=== PATIENT | female | born 1965 | race Caucasian/White ===

== ENCOUNTER 2021-03-13 08:10 | Emergency (ER) | payer OTHER ==
[~2021-03-13] VITALS: Ht 162.6 cm; Wt 63.5 kg
[2021-03-13 09:01] LABS: BASOPHILS ABSOLUTE AUTO 0.03 K/mm3 (0.00-0.23); BASOPHILS PERCENT AUTO 0 % (0-2); EOSINOPHILS ABSOLUTE AUTO 0.09 K/mm3 (0.00-0.68); EOSINOPHILS PERCENT AUTO 0 % (0-6); Hematocrit 26.4 % (33.0-51.0); Hemoglobin 8.4 g/dL (11.5-16.0); IMMATURE GRAN ABSOLUTE AUTO 0.45 K/mm3 (0.00-0.10); IMMATURE GRAN PERCENT AUTO 2 % (0-1); LYMPHOCYTES ABSOLUTE AUTO 1.16 K/mm3 (0.84-5.20); LYMPHOCYTES PERCENT AUTO 5 % (21-46); MONOCYTES ABSOLUTE AUTO 0.74 K/mm3 (0.16-1.47); MONOCYTES PERCENT AUTO 3 % (4-13); Mean Corpuscular HGB 23.1 pg (26.0-34.0); Mean Corpuscular HGB Conc 31.8 g/dL (31.5-36.5); Mean Corpuscular Volume 73 fL (80-100); NEUTROPHILS ABSOLUTE AUTO 20.32 K/mm3 (1.96-9.15); NEUTROPHILS PERCENT AUTO 89 % (41-73); NRBC ABSOLUTE 0.12 K/mm3 (0.00-0.02); NRBC Auto 0.5 /100 WBC (0.0-0.2); Platelet Count 54 K/mm3 (150-400); RDW Coefficient Variation 22.6 % (11.7-14.2); RDW Standard Deviation 58.2 fL (35.1-46.3); Red Blood Cell Count 3.63 M/mm3 (3.80-5.20); White Blood Cell Count 22.79 K/mm3 (4.00-11.30)
[2021-03-13 09:23] LABS: Alanine Aminotransfer (ALT/SGP 39 U/L (12-78); Albumin, Blood 1.9 g/dL (3.4-5.0); Albumin/Globulin Ratio 0.4 (0.8-1.8); Alk Phos 129 U/L (50-136); Anion Gap 13 mmol/L (6-16); Aspartate Aminotrans (AST/SGOT 113 U/L (12-37); Bilirubin, Total 3.6 mg/dL (0.1-1.0); Blood Urea Nitrogen 33 mg/dL (8-24); Bun/Creatinine Ratio 42.1 (12.0-20.0); CO2, Blood 19 mmol/L (21-32); Calcium, Blood 7.5 mg/dL (8.5-10.1); Chloride, Blood 97 mmol/L (98-108); Creatinine, Blood 0.78 mg/dL (0.40-1.00); Free Thyroxine 0.83 ng/dL (0.70-1.60); Globulin, Blood 5.3 g/dL (2.2-4.0); Glomerular Filtration Rate >60 (60-); Glucose, Blood 101 mg/dL (70-99); Potassium, Blood 2.7 mmol/L (3.5-5.5); Sodium, Blood 129 mmol/L (136-145); Thyroid Stimulating Hormone 0.689 uIU/mL (0.360-4.800); Total Protein, Blood 7.2 g/dL (6.4-8.2)
[2021-03-13 09:25] LABS: PCO2 Arterial 29.2 mmHg (35-45); PO2 Arterial 39.2 mmHg (80-100)
[2021-03-13 10:05] LABS: International Normalized Ratio 2.6; Prothrombin Time Results 26.6 Sec (9.7-11.5)
[2021-03-13 13:28] LABS: SARS-Cov-2 (COVID-19) PCR, MMC POSITIVE (NEGATIVE)
[2021-03-13 14:34] LABS: PO2 Arterial 93.6 mmHg (80-100); pH Blood Arterial 7.44 (7.35-7.45)
[2021-03-13 15:40] LABS: Source, Urine Clean Catch
[2021-03-13 15:48] LABS: Appearance, Urine Clear (Clear); Bilirubin, Urine Neg (Neg); Blood, Urine Neg (Neg); Color, Urine Yellow (P-Yellow); Glucose Qualitative, Urine Neg (Neg); Ketones, Urine Neg (Neg); Leukocyte Esterase, Urine Neg (Neg); Nitrite, Urine Neg (Neg); Protein, Urine Neg (Neg); Urobilinogen, Urine 2+ (Normal); pH, Urine 6.5 (5.0-8.0)
[2021-03-13 16:35] LABS: Calcium, Ionized (POC) 0.97 mmol/L (1.10-1.46); Chloride (POC) 100 mmol/L (98-108); Creatinine (POC) 0.8 mg/dL (0.6-1.0); Glucose (ISTAT POC) 107 mg/dL (70-99); Hemoglobin (POC) 8.2 g/dL (12.0-16.0); Potassium (POC) 2.8 mmol/L (3.5-5.5); Sodium (POC) 135 mmol/L (135-148); Total CO2 (POC) 24 mmol/L (21-32)
[2021-03-13 17:37] LABS: Hematocrit 20.8 % (33.0-51.0); Hemoglobin 6.7 g/dL (11.5-16.0)
== END 2021-03-13 19:45 | disposition short-term general hospital (02) ==
LOC: ER 08:10
PROVIDERS: Emergency Medicine
DX: U07.1 COVID-19 (principal); J93.83 Other pneumothorax; R09.02 Hypoxemia; K76.9 Liver disease, unspecified; E87.1 Hypo-osmolality and hyponatremia; E87.6 Hypokalemia; D69.6 Thrombocytopenia, unspecified; I10 Essential (primary) hypertension
CPT/HCPCS: 31500; 32551; 36415; 36430; 36600; 36680; 51702; 71045; 71260; 74177; 80047; 80053; 81003; 82140; 82272; 82803; 83605; 83735; 83880; 84439; 84443; 85014; 85018; 85025; 85610; 85730; 86850; 86900; 86901; 86923; 87040; 93005; 93010; 94002; 96365-59; 96366-59; 96367-59; 96368; 96375-59; 96376-59; 99285-25; C9113; G0480; J0330; J0456; J0696; J1100; J2060; J2354; J2704; J3480; J7030; J7050; P9016; Q9967; U0004

== ENCOUNTER → 2021-04-14 | Outpatient (CLI) | payer OTHER ==
[2021-04-15 14:45] LABS: Alanine Aminotransfer (ALT/SGP 99 U/L (12-78); Albumin/Globulin Ratio 0.4 (0.8-1.8); Alk Phos 258 U/L (50-136); Anion Gap 7 mmol/L (6-16); Aspartate Aminotrans (AST/SGOT 105 U/L (12-37); Bilirubin, Total 1.7 mg/dL (0.1-1.0); Blood Urea Nitrogen 7 mg/dL (8-24); CO2, Blood 26 mmol/L (21-32); Calcium, Blood 8.2 mg/dL (8.5-10.1); Chloride, Blood 93 mmol/L (98-108); Creatinine, Blood 0.64 mg/dL (0.40-1.00); Globulin, Blood 4.7 g/dL (2.2-4.0); Glomerular Filtration Rate >60 (60-); Glucose, Blood 75 mg/dL (70-99); Magnesium, Blood 1.5 mg/dL (1.6-2.4); Potassium, Blood 3.5 mmol/L (3.5-5.5); Sodium, Blood 126 mmol/L (136-145); Total Protein, Blood 6.7 g/dL (6.4-8.2)
== END | disposition home or self-care (01) ==
LOC: LAB SHORT 15:35
PROVIDERS: Nurse Practitioner Family
DX: J96.01 Acute respiratory failure with hypoxia (principal); D50.9 Iron deficiency anemia, unspecified; K74.60 Unspecified cirrhosis of liver
CPT/HCPCS: 80053; 83735

== ENCOUNTER 2021-04-29 10:02 | Emergency (ER) | payer OTHER ==
[~2021-04-29] VITALS: Ht 162.6 cm; Wt 65.8 kg
[2021-04-29 12:13] LABS: BASOPHILS ABSOLUTE AUTO 0.06 K/mm3 (0.00-0.23); BASOPHILS PERCENT AUTO 1 % (0-2); EOSINOPHILS ABSOLUTE AUTO 0.19 K/mm3 (0.00-0.68); EOSINOPHILS PERCENT AUTO 3 % (0-6); Hematocrit 31.1 % (33.0-51.0); Hemoglobin 10.4 g/dL (11.5-16.0); IMMATURE GRAN ABSOLUTE AUTO 0.04 K/mm3 (0.00-0.10); IMMATURE GRAN PERCENT AUTO 1 % (0-1); LYMPHOCYTES ABSOLUTE AUTO 1.14 K/mm3 (0.84-5.20); LYMPHOCYTES PERCENT AUTO 17 % (21-46); MONOCYTES ABSOLUTE AUTO 0.55 K/mm3 (0.16-1.47); MONOCYTES PERCENT AUTO 8 % (4-13); Mean Corpuscular HGB 31.1 pg (26.0-34.0); Mean Corpuscular HGB Conc 33.4 g/dL (31.5-36.5); Mean Corpuscular Volume 93 fL (80-100); Mean Platelet Volume 9.4 fL (9.1-12.4); NEUTROPHILS ABSOLUTE AUTO 4.79 K/mm3 (1.96-9.15); NEUTROPHILS PERCENT AUTO 71 % (41-73); Platelet Count 104 K/mm3 (150-400); RDW Coefficient Variation 21.3 % (11.7-14.2); RDW Standard Deviation 73.8 fL (35.1-46.3); Red Blood Cell Count 3.34 M/mm3 (3.80-5.20); White Blood Cell Count 6.77 K/mm3 (4.00-11.30)
[2021-04-29 12:23] LABS: International Normalized Ratio 1.42
[2021-04-29 12:32] LABS: Alanine Aminotransfer (ALT/SGP 62 U/L (12-78); Albumin, Blood 2.2 g/dL (3.4-5.0); Albumin/Globulin Ratio 0.5 (0.8-1.8); Alk Phos 192 U/L (50-136); Anion Gap 9 mmol/L (6-16); Aspartate Aminotrans (AST/SGOT 78 U/L (12-37); Bilirubin, Total 1.4 mg/dL (0.1-1.0); Blood Urea Nitrogen 7 mg/dL (8-24); Bun/Creatinine Ratio 11.5 (12.0-20.0); CO2, Blood 23 mmol/L (21-32); Calcium, Blood 8.3 mg/dL (8.5-10.1); Chloride, Blood 96 mmol/L (98-108); Creatinine, Blood 0.61 mg/dL (0.40-1.00); Globulin, Blood 4.4 g/dL (2.2-4.0); Glomerular Filtration Rate >60 (60-); Glucose, Blood 86 mg/dL (70-99); Potassium, Blood 3.2 mmol/L (3.5-5.5); Sodium, Blood 128 mmol/L (136-145); Total Protein, Blood 6.6 g/dL (6.4-8.2)
[2021-04-29] MEDS ORDERED: FURO80 PO (13:13)
[2021-04-29] MEDS ORDERED: ATOR40TA PO (15:33)
[2021-04-29] MEDS ORDERED: LOSA50 PO (15:34)
[2021-04-29] MEDS ORDERED: DECARA1250 MC1 PO (15:34)
[2021-04-29] MEDS ORDERED: ZOLOFT25 MG PO (15:34)
[2021-04-29] MEDS ORDERED: FOLI1 PO (15:36)
[2021-04-29] MEDS ORDERED: ACAMPROSATE CA333 MG PO (15:36)
[2021-04-29] MEDS ORDERED: SPIRONOLACTONE50 MG PO (15:38)
[2021-04-29] MEDS ORDERED: CONSTULOSE10 GM/155 PO (15:38)
[2021-04-29] MEDS ORDERED: SULFAMETHOXAZO1 EAC1 PO (15:38)
[2021-04-29] MEDS ORDERED: VITAMIN B-1100 M1 PO (15:39)
[2021-04-29] MEDS ORDERED: [UNRECOGNIZED DRUG - OTHER] PO (15:39)
[2021-04-29] MEDS ORDERED: XIFAXAN550 MG PO (15:40)
[2021-04-29] MEDS ORDERED: OMEP20ER PO (15:41)
[2021-04-29] MEDS ORDERED: CALCIUM CARBON200 M1 PO (15:42)
== END 2021-04-29 17:52 | disposition home or self-care (01) ==
LOC: ER 10:02
PROVIDERS: Physician Assistant
DX: R18.8 Other ascites (principal)
CPT/HCPCS: 36415; 49083; 80053; 82140; 85025; 85610; 85730; 96365-59; 96366-59; 99284-25; P9046

== ENCOUNTER 2021-05-31 13:37 | Day surgery (SDC) | payer OTHER ==
[~2021-05-31 13:37] MED LIST: ACAMPROSATE CA333 MG PO; ATOR40TA PO; CALCIUM CARBON200 M1 PO; CONSTULOSE10 GM/155 PO; DECARA1250 MC1 PO; FOLI1 PO; FURO80 PO; LOSA50 PO; OMEP20ER PO; SPIRONOLACTONE50 MG PO; SULFAMETHOXAZO1 EAC1 PO; VITAMIN B-1100 M1 PO; XIFAXAN550 MG PO; ZOLOFT25 MG PO; [UNRECOGNIZED DRUG - OTHER] PO
== END 2021-05-31 23:00 | disposition home or self-care (01) ==
LOC: US 13:37
DX: K70.31 Alcoholic cirrhosis of liver with ascites (principal)
CPT/HCPCS: 49083

== ENCOUNTER 2021-06-14 13:30 | Day surgery (SDC) | payer OTHER | END 2021-06-14 23:05 | disposition home or self-care (01) | LOC: US 13:30 | DX: K70.31 Alcoholic cirrhosis of liver with ascites (principal) | CPT/HCPCS: 49083 ==

== ENCOUNTER 2021-06-30 13:23 | Day surgery (SDC) | payer OTHER | END 2021-06-30 23:14 | disposition home or self-care (01) | LOC: US 13:23 | DX: K70.31 Alcoholic cirrhosis of liver with ascites (principal) | CPT/HCPCS: 76705 ==

== ENCOUNTER 2021-07-12 13:23 | Day surgery (SDC) | payer OTHER | END 2021-07-12 22:43 | disposition home or self-care (01) | LOC: US 13:23 | DX: K70.31 Alcoholic cirrhosis of liver with ascites (principal) | CPT/HCPCS: 76705 ==

== ENCOUNTER 2021-07-29 14:38 | Day surgery (SDC) | payer OTHER | END 2021-07-29 23:47 | disposition home or self-care (01) | LOC: US 14:38 → ORSCMMR 14:40 → US 15:00 | DX: K70.31 Alcoholic cirrhosis of liver with ascites (principal) | CPT/HCPCS: 76705 ==

== ENCOUNTER 2021-09-25 01:01 | Emergency (ER) | payer OTHER ==
[~2021-09-25] VITALS: Ht 162.6 cm; Wt 72.6 kg
[2021-09-25 02:56] LABS: BASOPHILS ABSOLUTE AUTO 0.03 K/mm3 (0.00-0.23); BASOPHILS PERCENT AUTO 1 % (0-2); EOSINOPHILS ABSOLUTE AUTO 0.04 K/mm3 (0.00-0.68); EOSINOPHILS PERCENT AUTO 1 % (0-6); Hematocrit 24.7 % (33.0-51.0); Hemoglobin 8.5 g/dL (11.5-16.0); IMMATURE GRAN ABSOLUTE AUTO 0.03 K/mm3 (0.00-0.10); IMMATURE GRAN PERCENT AUTO 1 % (0-1); LYMPHOCYTES ABSOLUTE AUTO 1.03 K/mm3 (0.84-5.20); LYMPHOCYTES PERCENT AUTO 16 % (21-46); MONOCYTES ABSOLUTE AUTO 0.37 K/mm3 (0.16-1.47); MONOCYTES PERCENT AUTO 6 % (4-13); Mean Corpuscular HGB 32.6 pg (26.0-34.0); Mean Corpuscular HGB Conc 34.4 g/dL (31.5-36.5); Mean Corpuscular Volume 95 fL (80-100); Mean Platelet Volume 12.6 fL (9.1-12.4); NEUTROPHILS ABSOLUTE AUTO 5.15 K/mm3 (1.96-9.15); NEUTROPHILS PERCENT AUTO 77 % (41-73); Platelet Count 54 K/mm3 (150-400); RDW Standard Deviation 65.4 fL (35.1-46.3); Red Blood Cell Count 2.61 M/mm3 (3.80-5.20); White Blood Cell Count 6.65 K/mm3 (4.00-11.30)
[2021-09-25 03:09] LABS: International Normalized Ratio 1.63; Prothrombin Time Results 16.6 Sec (9.7-11.5)
[2021-09-25 03:16] LABS: Alanine Aminotransfer (ALT/SGP 43 U/L (12-78); Albumin, Blood 2.6 g/dL (3.4-5.0); Albumin/Globulin Ratio 0.7 (0.8-1.8); Alk Phos 100 U/L (50-136); Anion Gap 16 mmol/L (6-16); Aspartate Aminotrans (AST/SGOT 96 U/L (12-37); Bilirubin, Total 2.2 mg/dL (0.1-1.0); Blood Urea Nitrogen 11 mg/dL (8-24); Bun/Creatinine Ratio 15.8 (12.0-20.0); CO2, Blood 22 mmol/L (21-32); Calcium, Blood 8.4 mg/dL (8.5-10.1); Chloride, Blood 94 mmol/L (98-108); Globulin, Blood 3.7 g/dL (2.2-4.0); Glomerular Filtration Rate >60 (60-); Glucose, Blood 112 mg/dL (70-99); Potassium, Blood 2.8 mmol/L (3.5-5.5); Sodium, Blood 132 mmol/L (136-145); Total Protein, Blood 6.3 g/dL (6.4-8.2); Troponin I <0.015 ng/mL (0.000-0.040)
== END 2021-09-25 05:12 | disposition home or self-care (01) ==
LOC: ER 01:01
PROVIDERS: Student in an Organized Health Care Education/Training Program
DX: R04.0 Epistaxis (principal); D64.9 Anemia, unspecified; R57.8 Other shock; J96.00 Acute respiratory failure, unspecified whether with hypoxia or hypercapnia; Z79.899 Other long term (current) drug therapy; Z79.82 Long term (current) use of aspirin; I10 Essential (primary) hypertension
CPT/HCPCS: 30905; 31500; 36415; 36430; 51702; 71045; 80053; 84484; 85025; 85610; 85730; 86850; 86900; 86901; 86923; 93005; 93010; 94002; 96374; 99284-25; A9270; J2250; J2704; J2765; J3010; J7030; P9016

== ENCOUNTER 2022-05-05 15:05 | Inpatient (IN) | payer OTHER ==
[~2022-05-05] VITALS: Ht 162.6 cm; Wt 79.0 kg
[2022-05-05 16:02] LABS: BASOPHILS ABSOLUTE AUTO 0.02 K/mm3 (0.00-0.23); BASOPHILS PERCENT AUTO 0 % (0-2); EOSINOPHILS PERCENT AUTO 0 % (0-6); Hematocrit 27.6 % (33.0-51.0); Hemoglobin 9.9 g/dL (11.5-16.0); IMMATURE GRAN ABSOLUTE AUTO 0.09 K/mm3 (0.00-0.10); IMMATURE GRAN PERCENT AUTO 1 % (0-1); LYMPHOCYTES ABSOLUTE AUTO 0.59 K/mm3 (0.84-5.20); LYMPHOCYTES PERCENT AUTO 5 % (21-46); MONOCYTES ABSOLUTE AUTO 0.63 K/mm3 (0.16-1.47); MONOCYTES PERCENT AUTO 5 % (4-13); Mean Corpuscular HGB 37.4 pg (26.0-34.0); Mean Corpuscular HGB Conc 35.9 g/dL (31.5-36.5); Mean Corpuscular Volume 104 fL (80-100); Mean Platelet Volume 12.4 fL (9.1-12.4); NEUTROPHILS ABSOLUTE AUTO 11.76 K/mm3 (1.96-9.15); NEUTROPHILS PERCENT AUTO 90 % (41-73); Platelet Count 71 K/mm3 (150-400); RDW Standard Deviation 57.9 fL (35.1-46.3); Red Blood Cell Count 2.65 M/mm3 (3.80-5.20); White Blood Cell Count 13.09 K/mm3 (4.00-11.30)
[2022-05-05 16:04] LABS: Albumin, Blood 2.6 g/dL (3.4-5.0); Albumin/Globulin Ratio 0.6 (0.8-1.8); Bilirubin, Total 4.7 mg/dL (0.1-1.0); Calcium, Blood 8.4 mg/dL (8.5-10.1); Creatinine, Blood 0.73 mg/dL (0.40-1.00); Total Protein, Blood 6.6 g/dL (6.4-8.2)
[2022-05-05 16:10] LABS: International Normalized Ratio 1.86; Prothrombin Time Results 18.8 Sec (9.7-11.5)
[2022-05-05 22:43] LABS: BASOPHILS ABSOLUTE AUTO 0.02 K/mm3 (0.00-0.23); BASOPHILS PERCENT AUTO 0 % (0-2); EOSINOPHILS PERCENT AUTO 0 % (0-6); Hematocrit 22.9 % (33.0-51.0); Hemoglobin 8.4 g/dL (11.5-16.0); IMMATURE GRAN ABSOLUTE AUTO 0.09 K/mm3 (0.00-0.10); IMMATURE GRAN PERCENT AUTO 1 % (0-1); LYMPHOCYTES ABSOLUTE AUTO 0.58 K/mm3 (0.84-5.20); LYMPHOCYTES PERCENT AUTO 4 % (21-46); MONOCYTES ABSOLUTE AUTO 1.15 K/mm3 (0.16-1.47); MONOCYTES PERCENT AUTO 9 % (4-13); Mean Corpuscular HGB 37.5 pg (26.0-34.0); Mean Corpuscular HGB Conc 36.7 g/dL (31.5-36.5); Mean Corpuscular Volume 102 fL (80-100); Mean Platelet Volume 11.9 fL (9.1-12.4); NEUTROPHILS ABSOLUTE AUTO 11.34 K/mm3 (1.96-9.15); NEUTROPHILS PERCENT AUTO 86 % (41-73); Platelet Count 55 K/mm3 (150-400); RDW Coefficient Variation 14.9 % (11.7-14.2); RDW Standard Deviation 55.5 fL (35.1-46.3); Red Blood Cell Count 2.24 M/mm3 (3.80-5.20); White Blood Cell Count 13.18 K/mm3 (4.00-11.30)
[2022-05-06 01:34] LABS: Stool Occult Blood Guaiac 1 Neg (Neg)
[2022-05-06 01:52] LABS: C DIFFICILE DNA NEGATIVE (Negative)
[2022-05-06 02:09] LABS: Base Excess Venous 7.9 mmol/L; Bicarbonate Venous 31.3 mmol/L (24.0-30.0); pH Blood Venous 7.57 (7.34-7.37)
[2022-05-06 04:07] LABS: Ethanol (Alcohol), Blood, Med <3 mg/dL; Ferritin, Serum 167 ng/mL (8-252); Iron Serum 79 ug/dL (50-170); Magnesium, Blood 1.2 mg/dL (1.6-2.4); Percent Saturation 37.1 % (15.0-50.0); Total Iron Binding Capacity 213 ug/dL (250-450)
[2022-05-06 05:02] LABS: Hematocrit 22.3 % (33.0-51.0); Hemoglobin 8.1 g/dL (11.5-16.0)
[2022-05-06] MEDS ORDERED: ESCI10 PO (06:15)
[2022-05-06] MEDS ORDERED: SULFAMETHOXAZO1 EAC1 PO (06:16)
--- NOTE | 2022-05-06 06:30 | NUR ---
ADMISSION TO PCU 2 AT 04:20 THIS MORNING. PT REQUIRED STAFF ASSIST x 3 TO TRANSFER FROM [facility] [address] [facility] TO BED WITH USE OF SLIDE SHEET. PT ENDORSES PAIN TO LEFT HIP AND THIGH SECONDARY TO FALL RESULTING IN LARGE BRUISE TO THAT AREA. DENIED NEED FOR ANY ANALGESIC AT THAT TIME AND WITH SUBSEQUENT ASSESSMENTS OF PAIN. ARRIVED WITH THE FOLLOWING INFUSING INTO 2 PERIPHERAL IVS: LACTATED RINGERS, POTASSIUM, OCTREOTIDE AND PANTOPRAZOLE. ADDITIONAL IV ACCESS VIA POWERGLIDE INSERTED BY CORNELIUS KENDRICK AT BEDSIDE. INFUSION OF POTASSIUM COMPLETED ON THIS SHIFT. DURING ADMISSION ASSESSMENT, PT REPEATEDLY ATTRIBUTES ANY AND ALL CHANGES TO HER HEALTH TO COVID-19 INFECTION WHICH REQUIRED INTUBATION AND PROLONGED HOSPITALIZATION. SHE STATES THAT SINCE THAT HOSPITALIZATION THAT SHE HAS UNDERGONE PT AND OT BUT HAS NEVER REGAINED FULL STRENGTH, USES A WALKER FOR AMBULATION AND REQUIRES ASSISTANCE FROM HER WITH TRANSFERS. SHE REPORTS MULTIPLE FALLS OVER THE PAST YEAR AND THEY HAVE INCREASED IN FREQUENCY IN THE PAST MONTH, WITH 4 IN THE PAST 2 DAYS. PT STATES THAT HER HANDS AND LEGS ARE WEAK AND SHAKY WHEN SHE STANDS UP AND THIS IS WHY HER ASSISTS HER. THE 2 FALLS THAT OCCURRED OVERNIGHT ON THE PREVIOUS NIGHT WERE UNWITNESSED BY HER . PT STATED THAT HE WAS SLEEPING AND SHE GOT UP TO GO TO THE BATHROOM. SHE PASSED OUT AND WOKE UP TO HER AT HER SIDE. SHE DENIES HITTING HER HEAD, BUT WITH THE LAST FALL STATES THAT SHE HAD PAIN TO HER LEFT HIP, LEFT ELBOW AND "A BIG BRUISE TO HER NECK." WHEN ASKED ABOUT THE EMESIS, PT DENIED THAT IT WAS "COFFEE GROUND." SHE SAID IT WAS "CLEAR WITH SOME RED SPECKS AND STREAKS." SHE COULDN'T RECALL IF IT WAS A BRIGHT RED OR DARKER OR RUST COLOR. SHE DENIED PREVIOUS EPISODES OF THIS PRIOR TO THE PAST TWO DAYS. PATIENT IS RESTING COMFORTABLY IN BED. CONTINUING TO TREND HEMOGLOBIN AND HEMATOCRIT ORDERED. SECOND CHECK OF LACTIC ACID RESULTED IN A DROP FROM 3.3 TO 2.8. CRITICAL VALUE CALLED TO DR. Esther PETERSON PER PROTOCOL.
[2022-05-06 08:24] LABS: BASOPHILS ABSOLUTE AUTO 0.01 K/mm3 (0.00-0.23); BASOPHILS PERCENT AUTO 0 % (0-2); EOSINOPHILS ABSOLUTE AUTO 0.02 K/mm3 (0.00-0.68); EOSINOPHILS PERCENT AUTO 0 % (0-6); Hematocrit 21.3 % (33.0-51.0); Hemoglobin 7.6 g/dL (11.5-16.0); IMMATURE GRAN ABSOLUTE AUTO 0.09 K/mm3 (0.00-0.10); IMMATURE GRAN PERCENT AUTO 1 % (0-1); LYMPHOCYTES ABSOLUTE AUTO 0.79 K/mm3 (0.84-5.20); LYMPHOCYTES PERCENT AUTO 6 % (21-46); MONOCYTES ABSOLUTE AUTO 1.33 K/mm3 (0.16-1.47); MONOCYTES PERCENT AUTO 11 % (4-13); Mean Corpuscular HGB 37.1 pg (26.0-34.0); Mean Corpuscular HGB Conc 35.7 g/dL (31.5-36.5); Mean Corpuscular Volume 104 fL (80-100); Mean Platelet Volume 12.1 fL (9.1-12.4); NEUTROPHILS ABSOLUTE AUTO 10.01 K/mm3 (1.96-9.15); NEUTROPHILS PERCENT AUTO 82 % (41-73); RDW Coefficient Variation 15.3 % (11.7-14.2); RDW Standard Deviation 56.7 fL (35.1-46.3); Red Blood Cell Count 2.05 M/mm3 (3.80-5.20); White Blood Cell Count 12.25 K/mm3 (4.00-11.30)
[2022-05-06 08:30] LABS: Albumin, Blood 2.2 g/dL (3.4-5.0); Anion Gap 11 mmol/L (6-16); Blood Urea Nitrogen 16 mg/dL (8-24); Bun/Creatinine Ratio 12.4 (12.0-20.0); CO2, Blood 29 mmol/L (21-32); Calcium, Blood 7.2 mg/dL (8.5-10.1); Chloride, Blood 88 mmol/L (98-108); Creatinine, Blood 1.29 mg/dL (0.40-1.00); Glomerular Filtration Rate 49 (60-); Glucose, Blood 122 mg/dL (70-99); Phosphorus, Blood 3.9 mg/dL (2.5-4.9); Potassium, Blood 3.5 mmol/L (3.5-5.5); Sodium, Blood 128 mmol/L (136-145)
[2022-05-06 08:47] LABS: Platelet Count 46 K/mm3 (150-400)
--- NOTE | 2022-05-06 09:56 | NUR ---
Assumed care of pt at 0700. Report received from Blank WHEELER. Pt alert. Answers questions. Follows commands. Pleasant and cooperative with care. SpO2 90% or greater RA. ST per monitor. BP stable. Clear liquid diet. GI provider consulted reagarding r/o GI bleed.
[2022-05-06 14:21] LABS: Hematocrit 19.9 % (33.0-51.0); Hemoglobin 7.2 g/dL (11.5-16.0)
--- NOTE | 2022-05-06 18:36 | NUR ---
SUMMARY Neuro: A&O x 4. Answers questions, follows commands, verbalizes needs. Pleasant and cooperative with care. Musculoskeletal: Repositions independently in bed. Assists with attends changes and toileting. Respiratory: SpO2 90% or greater RA. Cardiac: ST per monitor, HR 100-110. BP stable. GI: No emesis. Stool is brown and loose. Incontinent. : Incontinent of urine, urinalysis unable to collect. Skin: Unchanged from initial assessment. Psychosocial: Pt's partner in to visit today. Pt pleasant and cooperative with care. Placed palliative care consult. Pt details previous hospitalizations and states disintrest in invasive medical procedures. Palliative care to address code status and goals of care.
[2022-05-06 20:26] LABS: Source, Urine Clean Catch
[2022-05-06 20:30] LABS: Bilirubin, Urine Neg (Neg); Blood, Urine 3+ (Neg); Glucose Qualitative, Urine Neg (Neg); Ketones, Urine Neg (Neg); Leukocyte Esterase, Urine 2+ (Neg); Nitrite, Urine Neg (Neg); Protein, Urine 1+ (Neg); Urobilinogen, Urine NORM (Normal)
[2022-05-06 20:31] LABS: Appearance, Urine Hazy (Clear); Color, Urine Yellow (P-Yellow)
[2022-05-06 20:39] LABS: Bacteria Few /hpf; Other Crystals Mod /hpf; Squamous Epithelial Cells Rare /hpf (Few); Yeast/Fungi Urine Few /hpf
[2022-05-06 20:46] LABS: U Amphetamine Screen Not Detected; U Barbituate Screen Not Detected; U Benzodiazapine Screen Not Detected; U Buprenorphine Screen Not Detected; U Cannabinoids Screen Not Detected; U Cocaine Screen Not Detected; U Methadone Screen Not Detected; U Methamphetamine Screen Not Detected; U Opiates Screen Not Detected; U Oxycodone Screen Not Detected; U Phencyclidine Screen Not Detected; U Propoxyphene Screen Not Detected
[2022-05-07 04:32] LABS: Hematocrit 19.3 % (33.0-51.0); Hemoglobin 6.9 g/dL (11.5-16.0)
--- NOTE | 2022-05-07 06:20 | NUR ---
CALL TO HOSPITALIST - DR. BARKSDALE HEMOGLOBIN 6.9 THIS MORNING. PT REFUSED ENDOSCOPY YESTERDAY. NO VISIBLE / OBVIOUIS SIGNS OF BLEEDING SEEN THROUGHOUT THE SHIFT. ORDERS RECEIVED TO TRANSFUSE 1 UNIT OF PACKED RED BLOOD CELLS.
[2022-05-07 08:29] LABS: Hematocrit 21.6 % (33.0-51.0); Hemoglobin 7.6 g/dL (11.5-16.0)
[2022-05-07 08:41] LABS: Bun/Creatinine Ratio 18.3 (12.0-20.0); Creatinine, Blood 1.09 mg/dL (0.40-1.00); Potassium, Blood 2.9 mmol/L (3.5-5.5)
--- NOTE | 2022-05-07 13:54 | NUR ---
History, Chart, Medications and Allergies reviewed before start of procedure. Patient confirms NPO status and agrees with scheduled surgery.
[2022-05-07 13:57] LABS: SARS-Cov-2 (COVID-19) PCR, MMC NEGATIVE (NEGATIVE)
--- NOTE | 2022-05-07 14:02 | NUR ---
PATIENT NOTED TO BE TREMBLING. DENIES ETOH X3 MONTHS. RECIEVED CALL FROM TEST BAKER, BRIONNA GALLO, STATING THAT A RECENT PHONE CALL TO PATIENT'S SIGNIFICANT OTHER REVEALED THAT PATIENT HAS BEEN DENYING DRINKING ALCOHOL, BUT IN FACT HAS BEEN DRINKING ALCOHOL UP UNTIL THIS HOSPITAL VISIT. DR. PATEL NOTIFIED AND PLAN HAS CHANGED TO AN ANESTHESIOLOGIST CONSULT FOR EGD PROCEDURE SEDATION.
--- NOTE | 2022-05-07 15:08 | NUR ---
05/07/22 1508 Sara Bucio MONITOR INTACT WITH CONTINUOUS PULSE OXIMETRY AND INTERMITTENT BP. REFER TO DR SANTIAGO'S PAPER ANESTHESIA RECORD.
[2022-05-07 15:30] LABS: Hematocrit 28.1 % (33.0-51.0); Hemoglobin 9.9 g/dL (11.5-16.0)
--- NOTE | 2022-05-07 17:48 | NUR ---
SHIFT SUMMARY; ASSUMED CARE AT 0700. A/A/OX4, PLEASANT AND COOPERATIVE. LOOSE STOOL IN AM, NO VISIBLE SIGNS OF BLOOD. USES BEDPAIN WITH ASSISTANCE. EGD COMPLETE TODAY, [facility] PROTOCOL STARTED PER TELEPHONE CALL TO DR. CANSECO. PRIOR TO EGD PT APPEARED SLIGHTLY DIAPHERETIC AND TREMULOUS, APPEARED SLIGHTLY CONFUSED. ASKED ABOUT ALCOHOL USE, INITIALLY DENIES, THEN CHANGES STORY MULTIPLE TIMES. CURRENT USAGE AND HX UNKOWN. PER SPOUSE HAS DRANK HEAVILY DURING THE LAST 20+ YEARS, UNKOWN AMOUNT, PER SPOUSE HIDES HER USE AND DENIES DRINKING. HX OF ETOH WITHDRAWL IN THE PAST. VERSED GIVEN DURING EGD, WHEN RETURNED TO ROOM MINIMAL TREMOR. WILL CONTINUE TO MONITOR AND TREAT NEEDED. OCTEOTIDE AND LR INFUSING PER ORDERS. 1 UNIT PRBC GIVEN TODAY DURING SHIFT. WILL CONTINUE TO MONITOR AND TREAT UNTIL CHANGE OF SHIFT.
[2022-05-07 18:54] LABS: Hematocrit 25.2 % (33.0-51.0); Hemoglobin 8.9 g/dL (11.5-16.0)
[2022-05-07 23:19] LABS: Hematocrit 22.5 % (33.0-51.0); Hemoglobin 8.1 g/dL (11.5-16.0)
[2022-05-08 05:16] LABS: BASOPHILS ABSOLUTE AUTO 0.03 K/mm3 (0.00-0.23); BASOPHILS PERCENT AUTO 0 % (0-2); EOSINOPHILS ABSOLUTE AUTO 0.15 K/mm3 (0.00-0.68); EOSINOPHILS PERCENT AUTO 2 % (0-6); Hematocrit 23.7 % (33.0-51.0); Hemoglobin 8.2 g/dL (11.5-16.0); IMMATURE GRAN ABSOLUTE AUTO 0.07 K/mm3 (0.00-0.10); IMMATURE GRAN PERCENT AUTO 1 % (0-1); LYMPHOCYTES ABSOLUTE AUTO 0.81 K/mm3 (0.84-5.20); LYMPHOCYTES PERCENT AUTO 11 % (21-46); MONOCYTES ABSOLUTE AUTO 0.69 K/mm3 (0.16-1.47); MONOCYTES PERCENT AUTO 9 % (4-13); Mean Corpuscular HGB 36.3 pg (26.0-34.0); Mean Corpuscular HGB Conc 34.6 g/dL (31.5-36.5); Mean Corpuscular Volume 105 fL (80-100); Mean Platelet Volume 12.1 fL (9.1-12.4); NEUTROPHILS ABSOLUTE AUTO 5.78 K/mm3 (1.96-9.15); NEUTROPHILS PERCENT AUTO 77 % (41-73); RDW Coefficient Variation 17.8 % (11.7-14.2); RDW Standard Deviation 66.7 fL (35.1-46.3); Red Blood Cell Count 2.26 M/mm3 (3.80-5.20); White Blood Cell Count 7.53 K/mm3 (4.00-11.30)
[2022-05-08 05:17] LABS: International Normalized Ratio 2.12; Prothrombin Time Results 21.2 Sec (9.7-11.5)
[2022-05-08 05:25] LABS: Albumin/Globulin Ratio 0.7 (0.8-1.8); Bilirubin, Total 4.7 mg/dL (0.1-1.0); Bun/Creatinine Ratio 16.6 (12.0-20.0); Calcium, Blood 7.4 mg/dL (8.5-10.1); Creatinine, Blood 0.9 mg/dL (0.40-1.00); Globulin, Blood 2.9 g/dL (2.2-4.0); Potassium, Blood 3.5 mmol/L (3.5-5.5); Total Protein, Blood 4.9 g/dL (6.4-8.2)
[2022-05-08 05:28] LABS: Platelet Count 39 K/mm3 (150-400)
--- NOTE | 2022-05-08 06:14 | NUR ---
LINING PARTS SEWER SUMMARY PT IS ALERT AND COMMUNICATING APPROPRIATELY. CIWA'S 3 THIS SHIFT DUE TO TREMOR AND SLIGHT ANXIETY. PT HAD NO S/S OF BLEEDING THIS SHIFT DESPITE SEVERAL LOOSE BM'S. BP WNL AND STABLE THIS SHIFT. TELE SHOWING SR IN THE 70'S W FHB THIS SHIFT. O2 SATS .90% ON RM AIR, HOWEVER THE PT HAD APNEIC EPISODES WHILE ASLEEP SO SHE WAS PLACED ON 3L NC WHILE ASLEEP AND MAINTAINED O2 SATS >90%. WILL REPORT TO ONCOMING RN.
[2022-05-08] MEDS ORDERED: CIPR250 PO (11:40)
--- NOTE | 2022-05-08 16:55 | NUR ---
DISCHARGE: PT CLEARED FOR DISCHARGE BY MD. PT PROVIDED WITH DC PAPERWORK AND INSTRUCTIONS, VERBALIZES UNDERSTANDING. IV ACCESS DC'd WNL. PT ASSISTED TO WHEELCHAIR AND ESCORTED FROM UNIT APPROX 1350 WITHOUT INCIDENT.
== END 2022-05-08 13:49 | disposition home or self-care (01) | DRG 442 ==
LOC: ER 15:05 → PCU 05-06 01:47
PROVIDERS: Emergency Medicine; Family Medicine; Internal Medicine; Internal Medicine Gastroenterology; Student in an Organized Health Care Education/Training Program; ADMIT Family Medicine
PROC: HZ2ZZZZ Detoxification Services for Substance Abuse Treatment (ICD-10-PCS; principal; 2022-05-06)
PROC: 30233N1 Transfusion of Nonautologous Red Blood Cells into Peripheral Vein, Percutaneous Approach (ICD-10-PCS; 2022-05-07)
PROC: 0DJ08ZZ Inspection of Upper Intestinal Tract, Via Natural or Artificial Opening Endoscopic (ICD-10-PCS; 2022-05-07)
DX: K72.90 Hepatic failure, unspecified without coma (principal); D62 Acute posthemorrhagic anemia; K76.6 Portal hypertension; K92.0 Hematemesis; E87.1 Hypo-osmolality and hyponatremia; E87.4 Mixed disorder of acid-base balance; N17.9 Acute kidney failure, unspecified; D68.9 Coagulation defect, unspecified; I85.10 Secondary esophageal varices without bleeding; K70.31 Alcoholic cirrhosis of liver with ascites; Z20.822 Contact with and (suspected) exposure to COVID-19; K31.89 Other diseases of stomach and duodenum; K52.9 Noninfective gastroenteritis and colitis, unspecified; D69.59 Other secondary thrombocytopenia; F10.20 Alcohol dependence, uncomplicated; E78.5 Hyperlipidemia, unspecified; I12.9 Hypertensive chronic kidney disease with stage 1 through stage 4 chronic kidney disease, or unspecified chronic kidney disease; N18.30 Chronic kidney disease, stage 3 unspecified; E87.6 Hypokalemia; Z86.16 Personal history of COVID-19; Z79.899 Other long term (current) drug therapy
CPT/HCPCS: 36415; 70450; 71046; 72125; 73030; 73070; 73502; 80048; 80053; 80069; 81001; 82272; 82607; 82728; 82746; 82803; 83540; 83550; 83605; 83735; 84443; 85014; 85018; 85025; 85610; 86850; 86900; 86901; 86923; 87086; 87493; 90471; 90714; 93005; 93010; 93306; 96365; 96368; 96375; 96376; 99285-25; A9270; C1751; C9113; G0480; J0696; J2250; J2354; J2405; J2704; J2765; J3475; J3480; J7040; J7050; J7120; P9016; U0004

== ENCOUNTER 2023-01-10 10:14 | Inpatient (IN) | payer OTHER ==
[~2023-01-10] VITALS: Ht 162.6 cm; Wt 62.7 kg
[~2023-01-10 10:14] MED LIST changes: +CIPR250 PO; +ESCI10 PO; -OMEP20ER PO; +PANT40 PO
[2023-01-10 10:52] LABS: BASOPHILS ABSOLUTE AUTO 0.03 K/mm3 (0.00-0.23); BASOPHILS PERCENT AUTO 0 % (0-2); EOSINOPHILS PERCENT AUTO 0 % (0-6); Hemoglobin 9.6 g/dL (11.5-16.0); IMMATURE GRAN ABSOLUTE AUTO 0.12 K/mm3 (0.00-0.10); IMMATURE GRAN PERCENT AUTO 1 % (0-1); LYMPHOCYTES ABSOLUTE AUTO 0.36 K/mm3 (0.84-5.20); LYMPHOCYTES PERCENT AUTO 2 % (21-46); MONOCYTES ABSOLUTE AUTO 0.55 K/mm3 (0.16-1.47); MONOCYTES PERCENT AUTO 4 % (4-13); Mean Corpuscular HGB 31.3 pg (26.0-34.0); Mean Corpuscular Volume 98 fL (80-100); Mean Platelet Volume 10.5 fL (9.1-12.4); NEUTROPHILS ABSOLUTE AUTO 14.28 K/mm3 (1.96-9.15); NEUTROPHILS PERCENT AUTO 93 % (41-73); Platelet Count 101 K/mm3 (150-400); RDW Standard Deviation 60.2 fL (35.1-46.3); Red Blood Cell Count 3.07 M/mm3 (3.80-5.20); White Blood Cell Count 15.34 K/mm3 (4.00-11.30)
[2023-01-10 11:04] LABS: Albumin/Globulin Ratio 0.4 (0.8-1.8); Bilirubin, Total 4.4 mg/dL (0.1-1.0); Bun/Creatinine Ratio 18.4 (12.0-20.0); Calcium, Blood 8.2 mg/dL (8.5-10.1); Creatinine, Blood 0.49 mg/dL (0.40-1.00); Globulin, Blood 5.2 g/dL (2.2-4.0); Potassium, Blood 2.8 mmol/L (3.5-5.5); Total Protein, Blood 7.2 g/dL (6.4-8.2)
[2023-01-10 11:18] LABS: International Normalized Ratio 2.14; Prothrombin Time Results 21.4 Sec (9.7-11.5)
[2023-01-10] MEDS ORDERED: BUME2 PO (11:34)
[2023-01-10] MEDS ORDERED: Vitamin B-12100 MCG PO (11:34)
[2023-01-10] MEDS ORDERED: ZOLOFT50 MG PO (11:35)
[2023-01-10 15:09] LABS: Base Excess Venous 1.3 mmol/L; Bicarbonate Venous 25.4 mmol/L (24.0-30.0); PCO2 Venous 36.4 mmHg (38-42); pH Blood Venous 7.45 (7.34-7.37)
[2023-01-10 16:50] VITALS: BP 105/73
--- NOTE | 2023-01-10 19:29 | NUR ---
SHIFT SUMMARY PT ARRIVED TO U 03 @ 1548. PT ABLE TO TRANSFER TO BED WITH 1 PERSON ASSIST. A/O X4. PT ON 4LPM VIA NC AND O2 SAT @ APPROX 93-94%. PT SPO2 DECREASES TO MID 80'S WITH ANY EXERTION. SPO2 INCREASED TO 6LPM WITH ANY EXERTION TO MAINTAIN SPO2 >92%. PT C/O R SHOULDER PAIN DUE TO A RECENT FALL. PT MEDICATED WITH TRAMADOL WITH NO RELIEF. PHONE CALL TO DR PETERSON REGARDING PT PAIN AND RECEIVED ORDERS FOR 5-10MG OF OXYCODONE Q4H. PT ABD EXTREMELY DISTENDED, BUT SHE DENIES ANY PAIN OR TENDERNESS. PLAN FOR PT TO RECEIVE PLASMA INFUSION IN THE AM, PRIOR TO PARACENTESIS. THIS RN CONTACTED PT AND LEFT VOICEMAIL REGARDING PATIENT ADMISSION STATUS, PER REQUEST OF THE PATIENT. REPORT GIVEN TO SUMMER MARINELLI TO ASSUME CARE @1900.
[2023-01-10 19:54] VITALS: BP 118/68
[2023-01-10 23:09] VITALS: BP 137/73
--- NOTE | 2023-01-10 23:16 | NUR ---
PT PUT ON NONREBREATHER AT ABOUT 2116 PT WAS MOVING AROUND IN BED AND SHE DESATURATED TO THE 60'S ON 4L NC. SHE WAS NOT ABLE TO RECOVER AND WAS PLACED ON A NONREBREATHER. SHE WAS BOOSTED IN BED, GIVEN ANXIETY AND PAIN MEDICAITONS, A FAN WAS SET UP TO HELP CALM HER. SHE WAS LEFT ON THE NONREBREATHER AND 6L NC AND SP02>90%. PT IS CLAUSTERPHOBIC SO SHE PULLES THE NONREBREATHER OFF FOR A FEW SECONDS TO HAVE A BREAK FORM THE MASK, BUT THEN PUTS IT BACK ON. SHE IS COOPERATIVE AND CALLS W/ NEEDS. SHE STATED SHE IS SOB. THE PLAN IS FOR THE PT TO HAVE A PARACENTESIS TOMMORROW.
[2023-01-11] VITALS (60 sets, daily range): BP systolic 94–183; BP diastolic 60–120
[2023-01-11 03:54] LABS: BASOPHILS ABSOLUTE AUTO 0.02 K/mm3 (0.00-0.23); BASOPHILS PERCENT AUTO 0 % (0-2); EOSINOPHILS ABSOLUTE AUTO 0.03 K/mm3 (0.00-0.68); EOSINOPHILS PERCENT AUTO 0 % (0-6); Hematocrit 30.5 % (33.0-51.0); Hemoglobin 9.7 g/dL (11.5-16.0); IMMATURE GRAN ABSOLUTE AUTO 0.21 K/mm3 (0.00-0.10); IMMATURE GRAN PERCENT AUTO 1 % (0-1); LYMPHOCYTES ABSOLUTE AUTO 0.69 K/mm3 (0.84-5.20); LYMPHOCYTES PERCENT AUTO 4 % (21-46); MONOCYTES ABSOLUTE AUTO 0.86 K/mm3 (0.16-1.47); MONOCYTES PERCENT AUTO 4 % (4-13); Mean Corpuscular HGB 31.3 pg (26.0-34.0); Mean Corpuscular HGB Conc 31.8 g/dL (31.5-36.5); Mean Corpuscular Volume 98 fL (80-100); Mean Platelet Volume 10.3 fL (9.1-12.4); NEUTROPHILS ABSOLUTE AUTO 18.02 K/mm3 (1.96-9.15); NEUTROPHILS PERCENT AUTO 91 % (41-73); Platelet Count 101 K/mm3 (150-400); RDW Coefficient Variation 17.1 % (11.7-14.2); RDW Standard Deviation 60.9 fL (35.1-46.3); White Blood Cell Count 19.83 K/mm3 (4.00-11.30)
[2023-01-11 04:18] LABS: Bun/Creatinine Ratio 20.7 (12.0-20.0); Calcium, Blood 8.1 mg/dL (8.5-10.1); Creatinine, Blood 0.53 mg/dL (0.40-1.00); Magnesium, Blood 1.4 mg/dL (1.6-2.4); Potassium, Blood 3.5 mmol/L (3.5-5.5)
[2023-01-11 04:28] LABS: International Normalized Ratio 2.29; Prothrombin Time Results 22.8 Sec (9.7-11.5)
--- NOTE | 2023-01-11 05:07 | NUR ---
SHIFT SUMMARY PT IS A&OX4, HAS BEEN ST 110'S-120'S, HAS BEEN MODERATE-SEVERE PAIN THAT HAS REQUIRED AROUND THE CLOCK PAIN MEDICATIONS, AND SHE HAS BEEN HAVING DIFFICULTY MAINTAINING HER SP02>90%. SEE PREVIOUS NOTE FOR MORE INFORMATION ON OXYGEN REQUIRMENT. PT IS CURRENTLY ON 10L HFNC AND IS GOING BACK N FORTH W/ BEING ON THE NONREBREATHER W/ 10L HFNC. SHE HAS BEEN SOB AND RESTLESS. SHE FINALLY WAS ABLE TO FALL ASLEEP ABOUT 0300 THIS AM. BED IS IN LOW AND CALL LIGHT IS IN REACH, I WILL CONTINUE TO MONITOR UNTIL SHIFT REPORT IS GIVEN TO THE ONCOMING SHIFT RN.
--- NOTE | 2023-01-11 08:15 | NUR ---
RECEIVED PT EMERGENTLY FROM PCU DUE TO RESPIRATORY DISTRESS. PT IS AWAKE AND ALERT AND ABLE TO FOLLOWING COMMANDS, BUT SHE IS NON-VERBAL. SCLERAL EDEMA AND JAUNDICE NOTED. PT ON NRB AND HIGH FLOW O2. SHE IS ORTHOPNEIC, DYSPNEIC, AND TACHYPNEIC. LUNGS COARSE THROUGH OUT. ECG SHOWS ST WITH RATE IN 140'S. BP ELEVATED. GENERALIZED EDEMA NOTED.LOWER EXTREMITIES WITH 3+ EDEMA L>R. PT HAS PROFOUND ABDOMINAL ASCITES. DR. CANSECO AT BEDSIDE. DR. NAVA TO DO PARACENTISIS BEE. INT 2.29 1 UNIT PLATELETS TRANSFUSING. SKIN IS PALE/JAUNDICED. PT HAS HAD RECENT FALLS AT HOME PRIOR TO ADMIT AND HAS SCATTERED BRUISES. LOWER EXTREMITIES WITH RED STRIAE BILATERALLY. ATTENDS IN PLACE AND DRY. DR. CHISHOLM HAS BEEN CONSULTED.
[2023-01-11 08:27] LABS: PCO2 Arterial 56.8 mmHg (35-45); PO2 Arterial 104 mmHg (80-100); pH Blood Arterial 7.18 (7.35-7.45)
--- NOTE | 2023-01-11 08:46 | NUR ---
PARACENTESIS IN PROGRESS. DR. CANSECO AND ELIJAH AT BEDSIDE.
[2023-01-11 09:09] LABS: BASOPHILS ABSOLUTE AUTO 0.04 K/mm3 (0.00-0.23); BASOPHILS PERCENT AUTO 0 % (0-2); EOSINOPHILS ABSOLUTE AUTO 0.03 K/mm3 (0.00-0.68); EOSINOPHILS PERCENT AUTO 0 % (0-6); Hematocrit 34.4 % (33.0-51.0); Hemoglobin 10.8 g/dL (11.5-16.0); IMMATURE GRAN ABSOLUTE AUTO 0.21 K/mm3 (0.00-0.10); IMMATURE GRAN PERCENT AUTO 1 % (0-1); LYMPHOCYTES ABSOLUTE AUTO 0.59 K/mm3 (0.84-5.20); LYMPHOCYTES PERCENT AUTO 3 % (21-46); MONOCYTES ABSOLUTE AUTO 0.62 K/mm3 (0.16-1.47); MONOCYTES PERCENT AUTO 3 % (4-13); Mean Corpuscular HGB 31.2 pg (26.0-34.0); Mean Corpuscular HGB Conc 31.4 g/dL (31.5-36.5); Mean Corpuscular Volume 99 fL (80-100); Mean Platelet Volume 9.7 fL (9.1-12.4); NEUTROPHILS ABSOLUTE AUTO 18.16 K/mm3 (1.96-9.15); NEUTROPHILS PERCENT AUTO 92 % (41-73); Platelet Count 113 K/mm3 (150-400); RDW Coefficient Variation 16.9 % (11.7-14.2); RDW Standard Deviation 60.9 fL (35.1-46.3); Red Blood Cell Count 3.46 M/mm3 (3.80-5.20); White Blood Cell Count 19.65 K/mm3 (4.00-11.30)
[2023-01-11 09:15] LABS: Calcium, Blood 8.7 mg/dL (8.5-10.1); Creatinine, Blood 0.58 mg/dL (0.40-1.00); Potassium, Blood 3.7 mmol/L (3.5-5.5)
[2023-01-11 09:19] LABS: Automated BF WBC Count 0.016 K/mm3 (0-999)
--- NOTE | 2023-01-11 09:19 | NUR ---
PARACENTESIS COMPLETE. 4.7 LITERS REMOVED AND SPECIMEN SENT TO LAB. THE FLUID APPEARED STRAW COLORED. NRB REMOVED AND PT ABLE TO TOLERATE ORAL CARE. HER LIPS ARE VERY CHAPPED-OINTMENT APPLIED. FIO2 TITRATED TO 8 LITES HIGH FLOW O2. DR. CHISHOLM AT BEDSIDE AND FIO2 TITRATED DOWN TO 3 LITERS INITIALLY-SATS DROPPED TO 70'S AND PT STATED THAT SHE FELT SOB. LAB AT BEDSIDE. ONCE LABS COLLECTED, SUMMER BURGESS TO PLACE PICC LINE.
[2023-01-11 09:22] LABS: Body Fluid WBC Count 16 /mm3 (0-999)
[2023-01-11 09:28] LABS: Lactate Dehydrogenase, Body Fl 43 U/L
--- NOTE | 2023-01-11 09:30 | NUR ---
CBC AND CHEM RESULTS REVIEWED WITH DR. CANSECO AND DR. CHISHOLM-SEE NEW ORDERS.
[2023-01-11 09:31] LABS: Albumin, Body Fluid 0.2 g/dL; Glucose, Body Fluid 118 mg/dL; Protein, Body Fluid 0.6 g/dL
[2023-01-11 09:41] LABS: Hematocrit 33.7 % (33.0-51.0); Hemoglobin 10.6 g/dL (11.5-16.0)
--- NOTE | 2023-01-11 09:57 | NUR ---
UPON ASSESSMENT OF PT THIS AM, PT WAS ON HIGH FLOW NC AT 15LPM AND NON REBREATHER. PT WAS FATIGUED AND DIFFICULT TO AROUSE. PT WAS NON VERBAL, BUT ANSWERING QUESTIONS APPROPRIATELY BY SHAKING HEAD YES/NO. PT APPEARED EXTREMEMLY EDEMATOUS COMPARED TO YESTERDAYS ADMISSION ASSESSMENT. BLE EDEMA INCREASED TO 3+ WITH STRIAE PRESENT. HER ABD WAS INCREASINGLY DISTENDED. PERIORBITAL EDEMA ALSO NOTED. PT WAS CLENCHING JAW, MAKING GRUNTING SOUNDS WITH EXHALATION, AND WAS FROTHY AT THE MOUTH. FIRST UNIT OF PLASMA WAS STARTED. DR CANSECO CONTACTED BY THIS RN DUE TO CHANGE IN PT STATUS. DR SHELDON THEN AT [facility] AND PT TRANSFERRED TO ICU SHORTLY AFTER @ APPROX 8AM.
[2023-01-11 10:20] LABS: Base Excess Venous 3.6 mmol/L; Bicarbonate Venous 26.8 mmol/L (24.0-30.0); PCO2 Venous 52.4 mmHg (38-42); pH Blood Venous 7.35 (7.34-7.37)
--- NOTE | 2023-01-11 10:30 | NUR ---
VBG DRAWN FROM PICC LINE AND SENT TO LAB. LOUIS CATH INSERTED PER DR. CHISHOLM ORDERS-U/A SENT. TRACEE AREA IS SLIGHTLY RED. PT REMAINS ORTHOPNEIC-SATS DROPPED TO 80'S WHEN LYING FLAT FOR LOUIS INSERTION. ONCE HOB ELEVATED, SATS RETURNED TO >90% ON 8 LITERS NASAL CANULA. PAS APPLIED. CALL LIGHT WITHIN REACH.
[2023-01-11 10:34] LABS: RBC Count, Body Fluid 61 /mm3 (0-0)
[2023-01-11 10:45] LABS: Appearance, Body Fluid Hazy (Clear); Color, Body Fluid Yellow (None-Yellow); Total Cell Count, Body Fluid 100
[2023-01-11 10:52] LABS: Source, Urine Foley catheter
[2023-01-11 10:59] LABS: Appearance, Urine Clear (Clear); Bilirubin, Urine Neg (Neg); Blood, Urine Neg (Neg); Color, Urine Yellow (P-Yellow); Glucose Qualitative, Urine Neg (Neg); Ketones, Urine Neg (Neg); Leukocyte Esterase, Urine Neg (Neg); Nitrite, Urine Neg (Neg); Protein, Urine Neg (Neg); Specific Gravity, Urine 1.015 (1.003-1.022); Urobilinogen, Urine NORM (Normal)
--- NOTE | 2023-01-11 11:54 | NUR ---
PT RESTS WHEN NOT DISTURBED. AWAKENS TO VOICE AND ABLE TO FOLLOW COMMANDS. PT IS ORIENTED X 4, BUT NON-VERBAL FOR THE MOST PART. PT ABLE TO BAPTISTE WITHOUT DIFFICULTY. ECG SHOWS ST WITH RATE 120'S-130'S. SBP TRENDING 110'S. LUNGS REMAIN COARSE THROUGH OUT. RR 26-30. SATS >90% ON 8 LITERS HIGH FLOW NASAL CANULA. PT JAW IS CLENTCHED AND SHE IS USING ACCESSORY MUSCLES FOR BREATHING. RESPIRATIONS ARE SNOROUS. PT NPO DUE TO RESPIRATORY DISTRESS/RISK FOR ASPIRATION. ORAL MUCOSA VERY DRY/LIP CHAPPED. THE SU DENTAL HYGENIST PROVIDED ORAL CARE FOR PT. SU REPORTS THAT SHE SUSPECTS "THRUSH." PT HAS A REDENED AREA TO HE PANUS AND HE LABIA ARE RED WELL. THE REDNESS TO THE PANUS AND TRACEE AREA IS YEAST-LIKE. LOUIS TO BEDSIDE DRAINAGE WITH ADEQUATE URINE OUTPUT.
--- NOTE | 2023-01-11 12:55 | NUR ---
PT PLACED ON AIRVO 60 LITERS/FIO2 45% SATS >90%
--- NOTE | 2023-01-11 15:12 | NUR ---
Intubation flowsheet: 1510 - RT and Dr. Conway to bedside. Pt prepped for intubation, BVM with 15 L O2 being utilized. 1516 - 50 MG Propofol given. 1517 - 50 MG Rocuronium given. 1518 - intubation with 8.[address] Conway, 24 cm at teeth, etco2 with positive color change, bilateral breath sounds present and equal. Continue BVM. 1518 - 50 mg Propofol given. 1520 - BP 69/54 (map 69), Levophed gtt ordered. 1521 - OG tube placed by Dr. Conway. Tube secured. 1523 - BP 63/49 (map 55). 100 mcg Phenylephrine push given. 1525 - BP 79/60 (map 65). 100 mcg Phenylephrine push given. 1525 - Pt connected to ventilator with settings AC/VC 15, TV 350, PEEP 5, 100% 1527 - dairy manufacturing technologist here for chest x-ray. ET and OG position confirmed.
--- NOTE | 2023-01-11 16:00 | NUR ---
PT SEDATED ON PROPOFOL @ 20 MCG/KG/MIN. PT ABLE TO OPEN HER EYES TO VOICE. PT SHOOK HER HEAD "NO" WHEN ASKED IF IN PAIN. ECG CONTINUES ST WITH RATE 130'S. SBP 110-120'S. EDEMA AND ABDOMINAL ASCITES CONTINUES. VENOUS DUPLEX AND ECHO COMPLETED. ETT 8.0/24 @ TEETH. TO VENT: AC/VC 15, RR 18, TV 350, PEEP 5, FIO2 TITRATED DOWN TO 75% BY . ETT SUCTION PRODUCTIVE OF LARGE AMOUNT OF TENACIOUS, ORANGE SPUTUM-SPECIMEN SENT. OGT TO LIS. LOUIS CONTINUES TO DRAIN ADEQUATE AMOUNTS OF YELLOW URINE. PT SPOUSE PONCHO GIVEN FULL UPDATE. HE IS UNABLE TO MAKE IT TO THE HOSPITAL HE IS ILL.
[2023-01-11 16:09] LABS: Adenovirus Not Detected (NOT DETECT); Bordetella pertussis Not Detected (NOT DETECT); Chlamydophila pneumoniae Not Detected (NOT DETECT); Coronavirus 229E Not Detected (NOT DETECT); Coronavirus HKU1 Not Detected (NOT DETECT); Coronavirus NL63 Not Detected (NOT DETECT); Coronavirus OC43 Not Detected (NOT DETECT); Human Metapneumovirus Not Detected (NOT DETECT); Human Rhinovirus/Enterovirus Not Detected (NOT DETECT); Influenza A/2009-H1 Not Detected (NOT DETECT); Influenza A/H1 Not Detected (NOT DETECT); Influenza A/H3 Not Detected (NOT DETECT); Influenza B Not Detected (NOT DETECT); Mycoplasma pneumoniae Not Detected (NOT DETECT); Parainfluenza Virus 1 Not Detected (NOT DETECT); Parainfluenza Virus 2 Not Detected (NOT DETECT); Parainfluenza Virus 3 Not Detected (NOT DETECT); Parainfluenza Virus 4 Not Detected (NOT DETECT); Respiratory Syncytial Virus Not Detected (NOT DETECT); SARS-Cov-2 (COVID-19), BioFire Not Detected (NOT DETECT)
--- NOTE | 2023-01-11 17:10 | NUR ---
RR 28, PT FIGHTING VENTILATOR. SATS 85%. CPOT 7. MED WITH FENTANYL 50 MCG IVP X 1 FOR PAIN/SEDATION ADJUNCT.
--- NOTE | 2023-01-11 17:33 | NUR ---
RR 28, PT GRIMACING AND FIGHTING VENTILATOR. SATS 83%. PT NODS "YES" WHEN ASKED IN FEELING ANXIOUS. PROPOFOL TITRATED UP TO 25 MCG/KG/MIN. PT MED WITH ATIVAN 2 MG IVP X 1 -SEE EMAR.
--- NOTE | 2023-01-11 17:45 | NUR ---
SPO2 83% DESPITE SUCTIONING, MEDICATING FOR AGITATION, REPOSITIONING, AND INCREASING FIO2 TO 100%. DR. CHISHOLM UPDATED AND RT TONJA AT BEDSIDE. PEEP TITRATED UP TO 8.
--- NOTE | 2023-01-11 18:39 | NUR ---
RT AT BEDSIDE. PT FIGHTING VENTILATOR. CHANGED TO PC 20/8-FIO2 80% SATS>90% AND PT COMPLIANT WITH VENTILATOR.
--- NOTE | 2023-01-11 19:30 | NUR ---
ASSUMPTION OF CARE PT IS INTUBATED VIA ETT TUBE. SHE IS RESTLESS AND BREATHING OVER THE VENT. DIFFICULTY W/VENT COMPLIANCE ON PRIOR SHIFT. WILL MEDICATE PER EMAR TO FACILITATE VENT COMPLIANCE AND COMFORT. BP WNL, ST ON THE OPTICAL MANUFACTURING TECHNICIAN. ABD DISTENDED AND TENDER, PARACENTESIS DONE ON PRIOR SHIFT. TEMP LOUIS DRAINING EDILBERTO URINE. BILATERAL BREATH SOUNDS PRESENT. LE EDEMA W/L>R. PROPOFOL INFUSING @25MCGS.
[2023-01-12] VITALS (76 sets, daily range): BP systolic 89–209; BP diastolic 49–186
[2023-01-12 03:28] LABS: BASOPHILS ABSOLUTE AUTO 0.01 K/mm3 (0.00-0.23); BASOPHILS PERCENT AUTO 0 % (0-2); EOSINOPHILS ABSOLUTE AUTO 0.02 K/mm3 (0.00-0.68); EOSINOPHILS PERCENT AUTO 0 % (0-6); Hematocrit 23.9 % (33.0-51.0); Hemoglobin 7.5 g/dL (11.5-16.0); IMMATURE GRAN ABSOLUTE AUTO 0.08 K/mm3 (0.00-0.10); IMMATURE GRAN PERCENT AUTO 1 % (0-1); LYMPHOCYTES ABSOLUTE AUTO 0.64 K/mm3 (0.84-5.20); LYMPHOCYTES PERCENT AUTO 5 % (21-46); MONOCYTES ABSOLUTE AUTO 0.41 K/mm3 (0.16-1.47); MONOCYTES PERCENT AUTO 3 % (4-13); Mean Corpuscular HGB 31.3 pg (26.0-34.0); Mean Corpuscular HGB Conc 31.4 g/dL (31.5-36.5); Mean Corpuscular Volume 100 fL (80-100); Mean Platelet Volume 9.9 fL (9.1-12.4); NEUTROPHILS ABSOLUTE AUTO 10.99 K/mm3 (1.96-9.15); NEUTROPHILS PERCENT AUTO 90 % (41-73); Platelet Count 69 K/mm3 (150-400); RDW Coefficient Variation 16.5 % (11.7-14.2); RDW Standard Deviation 59.7 fL (35.1-46.3); White Blood Cell Count 12.15 K/mm3 (4.00-11.30)
[2023-01-12 03:39] LABS: International Normalized Ratio 2.69; Prothrombin Time Results 26.5 Sec (9.7-11.5)
[2023-01-12 03:45] LABS: Albumin, Blood 2.2 g/dL (3.4-5.0); Albumin/Globulin Ratio 0.7 (0.8-1.8); Bilirubin, Total 2.3 mg/dL (0.1-1.0); Calcium, Blood 7.6 mg/dL (8.5-10.1); Creatinine, Blood 0.54 mg/dL (0.40-1.00); Globulin, Blood 3.3 g/dL (2.2-4.0); Magnesium, Blood 1.6 mg/dL (1.6-2.4); Phosphorus, Blood 2.4 mg/dL (2.5-4.9); Potassium, Blood 3.3 mmol/L (3.5-5.5); Total Protein, Blood 5.5 g/dL (6.4-8.2)
--- NOTE | 2023-01-12 03:56 | NUR ---
NOTIFIED DR LUCAS OF PT DROP IN H&H, PLATLETS, INCREASE IN PT, K+LEVEL, AND PHOS LEVEL. SEE ORDERS.
[2023-01-12 04:16] LABS: PCO2 Arterial 49.4 mmHg (35-45); PO2 Arterial 79.9 mmHg (80-100); pH Blood Arterial 7.41 (7.35-7.45)
--- NOTE | 2023-01-12 05:44 | NUR ---
SHIFT SUMMERY PT REMAINS INTUBATED VIA ETT. OXYGEN SAT 98% AT THIS TIME. PT WAS INTOLERANT OF MUCH STIMULATION AND WOULD EXPERIENCE DESATURATION AT TIMES. PT WAS MEDICATED TO FACILITATE SYNCRONY W/THE VENT AND STIMULATION WAS KEPT TO A MINIMUM TO PROMOTE OPTIMUM OXYGENATION. BP HAS BEEN WNL. HR ST ON THE VENEER SORTER. PT DID HAVE SOME LAB VALUES THAT I REPORTED TO DR LUCAS, NONE CRITICAL AT THIS TIME. SHE WAS AFEBRILE OVERNIGHT. PROPOFOL INFUSING FOR SEDATION. ABD DISTENDED AND TENDER.
--- NOTE | 2023-01-12 09:47 | NUR ---
ASSUMED CARE OF PATIENT AT 0700, SHE IS ON THE VENTILATOR 15/350/8/75%. SHE IS RESTLESS AND MOVES ALL EXTREMITIES WITH ANY STIMULI. SHE IS NOT FOLLOWING COM- MANDS, SHE IS COUGHING WITH MINIMAL RETURN FOR SECRETIONS. LUNGS ARE CLEAR TO DIMINISHED. ABD LARGE ROUND SEMI-FIRM, NO RESPONSE ILLICITED WITH PALPATION. LOUIS TO GRAVITY DRAINAGE WITH DARK EDILBERTO COLORED RETURN. LEFT LOWER LEG EDEMA QUITE CONSIDERABLE FROM THE RIGHT. SCD'S IN PLACE. PULSES ARE PALPABLE. WOUND TO LEFT SMITH NOTED, NO CHANGE WITH NOC RN. SMALL AREAS OF PETECHIAE SCATTERED T/O ARMS/LEGS/KNEES. K+ REPLACED, ALBUMIN INFUSING, PROPOFOL @ 35 UNTIL VENT ADJUSTED BY ABOUT 30MIN AGO, THEN PROPOFOL UP TO 45 PER HIS REQUEST.
--- NOTE | 2023-01-12 10:46 | NUR ---
HYGIENIST WITH PATIENT
--- NOTE | 2023-01-12 12:52 | NUR ---
PT SPONTANEOUSLY DROPPED SATS, MAINTAINED WITH TROUBLE SHOOT, ENDED UP INCREASING FIO2 BACK TO 75%. SATS RETURNED TO 90'S.
[2023-01-12 16:03] LABS: Hematocrit 23.8 % (33.0-51.0); Hemoglobin 7.6 g/dL (11.5-16.0)
--- NOTE | 2023-01-12 16:44 | NUR ---
CONTINUED ALARMING FOR AIRWAY RESP RATE AND FOR ETCO2, NOT CORRELATING WITH VENTILATOR, CO2 TUBING CHANGED OUT WITH GOOD RESULTS.
--- NOTE | 2023-01-12 17:41 | NUR ---
JAZIEL CONTINUES ON THE VENTILATOR /8/65%. HAS BEEN ABLE TO STAY AT 65% FOR THE LAST FEW HOURS. HAD EPISODES OF DESATURATION AND FIO2 INCREASED BACK TO 75% TWICE THIS SHIFT. PT GRIMACES WITH ORAL CARE, PULLS AGAINST THE REST- RAINTS, MOVES LEGS. PUPILS SMALL, EQUAL, REACTIVE. DOES NOT FOLLOW COMMANDS. ABDOMEN LARGE ROUND DISTENDED, NO RESPONSE TO PALPATION, LOUIS WITH DARK EDILBERTO RETURN TO GRAVITY. NO FEVER, TUBE FEEDINGS INITIATED AT 1430, VHP @ 25ML/HR. PROPOFOL @ 40MCG/KG, NS @ TKO, VANCO, AZITHRO, ROCEPHIN, FOLIC ACID AND THIAMINE GIVEN PER ORDERS T/O DAY. ORAL CARE Q4HR, TURNS Q2, DENTAL HYGIENIST CARE DONE TODAY WELL. SISTER IN LAW HERE AT BEDSIDE, CALLED IN TO CHECK IN, APPARENTLY HAS A FX'D VERTEBRAE AND IS HAVING DIFFICULTY WITH MOVE- MENT.
[2023-01-12 20:37] LABS: Hemoglobin 7.4 g/dL (11.5-16.0)
--- NOTE | 2023-01-12 22:53 | NUR ---
ASSUMED CARE AT 1900 PT LAYING IN BED INTUBATED WITH VENT SETTINGS AC/PC RATE 15, 24/8, FIO2 65%; SMALL AMOUNT OF THICK SECREATIONS FROM ETT. SHE IS SEDATED WITH PROPOFOL INFUSING AT 40MCG/KG/MIN BUT STILL APPEARED RESTLESS, GRIMICING SPONTANIOUSLY; AGITATED WITH ORAL CARE AND BITES DOWN ON ETT, NOT FOLLOWING DIRECTIONS; PRN FENTANYL AVAILABLE AND HELPFUL. SINUS TACH WITH RATE 110-115; BP STABLE, SBP 100'S, MAP >65; EDEMA IN BLE IMPROVING. VHP INFUSING VIA OG AT 25ML/HR WITH 30ML WATER FLUSHES Q4HR; PLAN TO INCREASE RATE TO GOAL AT 2230. LOUIS INPLACE AND DRAINING TO GRAVITY. PICC TO ANAID PATENT WITH DRESSING C/D/I. SEE SHIFT ASSESSMENT FOR FULL ASSESSMENT.
[2023-01-13] VITALS (85 sets, daily range): BP systolic 86–127; BP diastolic 59–84
[2023-01-13 00:15] LABS: Hematocrit 24.1 % (33.0-51.0); Hemoglobin 7.5 g/dL (11.5-16.0)
[2023-01-13 03:53] LABS: BASOPHILS ABSOLUTE AUTO 0.01 K/mm3 (0.00-0.23); BASOPHILS PERCENT AUTO 0 % (0-2); EOSINOPHILS ABSOLUTE AUTO 0.21 K/mm3 (0.00-0.68); EOSINOPHILS PERCENT AUTO 2 % (0-6); Hematocrit 25.1 % (33.0-51.0); Hemoglobin 7.9 g/dL (11.5-16.0); IMMATURE GRAN ABSOLUTE AUTO 0.17 K/mm3 (0.00-0.10); IMMATURE GRAN PERCENT AUTO 2 % (0-1); LYMPHOCYTES ABSOLUTE AUTO 0.74 K/mm3 (0.84-5.20); LYMPHOCYTES PERCENT AUTO 7 % (21-46); MONOCYTES ABSOLUTE AUTO 0.36 K/mm3 (0.16-1.47); MONOCYTES PERCENT AUTO 3 % (4-13); Mean Corpuscular HGB 31.6 pg (26.0-34.0); Mean Corpuscular HGB Conc 31.5 g/dL (31.5-36.5); Mean Corpuscular Volume 100 fL (80-100); Mean Platelet Volume 9.7 fL (9.1-12.4); NEUTROPHILS ABSOLUTE AUTO 8.96 K/mm3 (1.96-9.15); NEUTROPHILS PERCENT AUTO 86 % (41-73); Platelet Count 61 K/mm3 (150-400); RDW Coefficient Variation 17.2 % (11.7-14.2); RDW Standard Deviation 61.3 fL (35.1-46.3); White Blood Cell Count 10.45 K/mm3 (4.00-11.30)
[2023-01-13 04:17] LABS: Albumin, Blood 2.5 g/dL (3.4-5.0); Albumin/Globulin Ratio 0.8 (0.8-1.8); Bilirubin, Total 2.1 mg/dL (0.1-1.0); Bun/Creatinine Ratio 32.9 (12.0-20.0); Calcium, Blood 7.9 mg/dL (8.5-10.1); Creatinine, Blood 0.58 mg/dL (0.40-1.00); Globulin, Blood 3.3 g/dL (2.2-4.0); Magnesium, Blood 1.8 mg/dL (1.6-2.4); Phosphorus, Blood 1.1 mg/dL (2.5-4.9); Potassium, Blood 3.4 mmol/L (3.5-5.5); Total Protein, Blood 5.8 g/dL (6.4-8.2)
--- NOTE | 2023-01-13 06:20 | NUR ---
END OF SHIFT SUMMARY NO ACUTE EVENTS OVERNIGHT. PT CONT TO BE ON VENT, SETTINGS CHANGED TO PS 24/10, FIO2 80%; FIO2 TITRATED FREQUENTLY, CAN DESATURATE EASILY WITH STIMULATION; RR GRADUALLY INCREASED T/O THE NIGHT BUT WAS ABLE TO SLOW DOWN AFTER DOSE OF FENTANYL GIVEN. PROPOFOL INFUSING AT 40MCG/KG/MIN; 3 DOSES OF PRN FENTANYL GIVEN D/T GRIMICING AND APPEARING RESTLESS. AFEBRILE. HR 105-120. SBP 100-115. ABDOMINAL DISTENTION GRADUALLY GETTING WORSE T/O THE SHIFT. VHP INFUSING VIA OG AT GOAL. LOUIS IN PLACE WITH 450ML URINE OUTPUT. PICC TO ANAID IN PLACE WITH DRESSING C/D/I. CALL MADE TO DR LUCAS REGARDING PHOS THIS AM OF 1.1; NEW ORDERS PROVIDED FOR 30MM KPHOS IV. WILL REPORT TO AM RN WHEN AVAILABLE.
--- NOTE | 2023-01-13 07:22 | NUR ---
RECEIVED REPORT BEDSIDE. PT ON PS 24 PEEP 10 FIO2 80%, RESPIRATORY RATE 30-40. FENTANYL 50MCG GIVEN, ATIVAN 2MG GIVEN, PROPOFOL INCREASED TO 45MCG/KG, PT RIGID, ENCOURAGED TO CALM HER BREATHING, NO RESPONSE TO VERBAL INSTRUCTIONS. PULLED UP IN BED AND POSITIONED IN SEMI-FOWLERS. SATS MID-HI 80'S. LUNGS ARE CLEAR, HEART RATE 110'S.
[2023-01-13 08:06] LABS: Hematocrit 25.8 % (33.0-51.0)
--- NOTE | 2023-01-13 08:57 | NUR ---
ORDERED TUBE FEEDINGS STOPPED. PT ON PC 15, PEEP 10, FIO2 90%.
[2023-01-13 09:31] LABS: BASOPHILS ABSOLUTE AUTO 0.01 K/mm3 (0.00-0.23); BASOPHILS PERCENT AUTO 0 % (0-2); EOSINOPHILS ABSOLUTE AUTO 0.19 K/mm3 (0.00-0.68); EOSINOPHILS PERCENT AUTO 2 % (0-6); Hematocrit 26.1 % (33.0-51.0); Hemoglobin 8.2 g/dL (11.5-16.0); IMMATURE GRAN ABSOLUTE AUTO 0.14 K/mm3 (0.00-0.10); IMMATURE GRAN PERCENT AUTO 1 % (0-1); LYMPHOCYTES ABSOLUTE AUTO 0.58 K/mm3 (0.84-5.20); LYMPHOCYTES PERCENT AUTO 5 % (21-46); MONOCYTES ABSOLUTE AUTO 0.28 K/mm3 (0.16-1.47); MONOCYTES PERCENT AUTO 2 % (4-13); Mean Corpuscular HGB 31.7 pg (26.0-34.0); Mean Corpuscular HGB Conc 31.4 g/dL (31.5-36.5); Mean Corpuscular Volume 101 fL (80-100); Mean Platelet Volume 9.4 fL (9.1-12.4); NEUTROPHILS ABSOLUTE AUTO 10.98 K/mm3 (1.96-9.15); NEUTROPHILS PERCENT AUTO 90 % (41-73); Platelet Count 60 K/mm3 (150-400); RDW Coefficient Variation 17.2 % (11.7-14.2); RDW Standard Deviation 61.8 fL (35.1-46.3); Red Blood Cell Count 2.59 M/mm3 (3.80-5.20); White Blood Cell Count 12.18 K/mm3 (4.00-11.30)
--- NOTE | 2023-01-13 09:55 | NUR ---
PATIENT STARTED ON PARALYTICS, EXPLAINED TO PATIENT, NO CONFIRMATION OF UNDER- STANDING. NIMBEX @ 2MG/KG/MIN, PROPOFOL @ 50MCG/KG/MIN. INITIAL ToF 4/4 AT THE RIGHT BUDDHIST AT 6. PT CONTINUED WITH RESP RATE IN THE 30S, SATS 88-90%. BIS INITIALLY IN THE 70'S, ATIVAN GIVEN WHEN NIMBEX STARTED BIS CURRENTLY READING 26. ULTRASOUND EXPECTED TO SEE IF PATIENT REQUIRES ADDITIONAL PARACENTESIS.
[2023-01-13 09:56] LABS: International Normalized Ratio 2.42; Prothrombin Time Results 24.2 Sec (9.7-11.5)
--- NOTE | 2023-01-13 10:38 | NUR ---
PT STARTED ON CONTINUOUS FENTANYL INFUSION @ 25MCG/HR. SISTER IN LAW IRINEO HERE TO READ TO PATIENT. PT RESPONDING WELL TO PARALYTIC, LIMBS RELAXING SOME. SATS UP TO 92%. SPOKE WITH AND WITH IRINEO WITH UPDATED PLAN OF CARE.
[2023-01-13 12:44] LABS: Hematocrit 25.6 % (33.0-51.0); Hemoglobin 8.1 g/dL (11.5-16.0); Phosphorus, Blood 2.6 mg/dL (2.5-4.9); Potassium, Blood 3.5 mmol/L (3.5-5.5)
--- NOTE | 2023-01-13 13:55 | NUR ---
1300 PT BEGAN ALARMING ON HER VENTILATOR WITH LOW TIDAL VOLUMES, RT WAS CALLED FOR ASSISTANCE, DISCUSSION WITH RT, TELEGRAPH OFFICE MANAGER, AND TO FORGO THE PERICENTESIS AND GET THE PATIENT PRONE. PT WAS TURNED PRONE WITH 2 RT'S, 3 RN'S AND A PCT. PT TOLERATED WELL, SATS REMAIN 90%. AND DAUGHTER WERE BROUGHT BACK IN THE ROOM, NO QUESTIONS HAD ALREADY SPOKE WITH THE REGARDING HIS PLAN OF CARE. PT WITH PADDING TO BOTH KNEES, PILLOW UNDER HER HIPS, CHEST AND THIGHS. RIGHT ARM UP, FACE ON C PILLOW. WILL CONT TO BE CAUTIONARY IN REGARDS TO THE RIGHT SHOULDER STATES THAT IT WAS INJURED PRIOR TO ADMISSION.
[2023-01-13 14:11] LABS: PCO2 Arterial 70.2 mmHg (35-45); PO2 Arterial 64.8 mmHg (80-100); pH Blood Arterial 7.24 (7.35-7.45)
--- NOTE | 2023-01-13 14:26 | NUR ---
ABG RESULTS CALLED TO . PT CONTINUES AT 88-89%, RT INCREASES FIO2 TO 95%. PROPOFOL DOWN TO 20MCG/KG, BIS <30. ToF 1/4.
--- NOTE | 2023-01-13 15:00 | NUR ---
HERE TO RE-EVALUATE PATIENT. VENTILATOR SETTINGS CHANGED. PT REMAINS PRONE. NIMBEX @ 3MCG/KG/MIN, PROP @ 20MCG/KG/MIN, FENTANYL @ 25MCG/HR, BIS READING LOW 40'S, HEART RATE 130'S, RESP RATE WITH THE VENTILATOR AT 28 BPM. BP STABLE.
--- NOTE | 2023-01-13 16:37 | NUR ---
1600 pt repositioned to flat as putting her in the reverse trendelberg position caused her vT to decrease. Also her ETCO2 was climbing, with pt in slight trendelenberg pt, vT and ETCO2 are improving. Heart rate remains elevated and is ordering Lopressor per tube. BIS remains at 40 or below, Propofol @ 20mcg/kg/min, Nimbex @ 2.5mcg/kg/min, Fentanyl @ 25mcg/hr. ToF 1/3 @ 10.
--- NOTE | 2023-01-13 17:53 | NUR ---
JAZIEL REMAINS PRONE IN A SLIGHT TRENDELENBERG POSITION. SHE IS ON A/C PC RATE 28, PEEP 10, FIO2 100%. SATS 92%. PROPOFOL @ 20MCG/KG/MIN, NIMBEX @ 2.5MCG/KG /MIN, WITH ToF 2/4 RIGHT SIKHISM AT 10. SCD'S IN PLACE. LOUIS DRAINING TO GRAVITY, OGT CLAMPED, LOPRESSOR GIVEN FOR HR 140'S. BP 128/82, ETCO2 46, BIS 38, RESP 28 WITH THE VENT. LIMBS NOW LIMP.
--- NOTE | 2023-01-13 22:00 | NUR ---
ASSUMED CARE AT 1900 PT IN BED ON THE VENT AND PRONED. PARALIZED WITH NIMBEX INFUSING AT 2.5MCG/KG/MIN, TOF 2/4. PT SEDATED WITH PROPOFOL AND FENTANYL; BIS MONITOR READING VALUES IN THE TEENS, BOTH PROPOFOL AND FENTANYL TITRATED DOWN BUT THE BIS MONITOR CONT TO READ IN THE TEENS; SEVERAL TROUBLESHOOT ATTEMPTS MADE AND EVENTUALLY CALL MADE TO DR CHISHOLM REGARDING BIS READINGS; CONCLUSION MADE WITH DR CHISHOLM THAT THE BIS MONITOR IS NOT READING APPROPORIATLY AND TO TITRATE SEDATION BACK UP; PROPFOL NOW INFUSING AT 20MCG/KG/MIN AND FENTANYL INFUSING AT 25MCG/HR. VENT SETTINGS AC/PC RATE 28, 24/10, 100%; NO ETT SECREATIONS SUCTIONED. TEMP TRENING DOWN, WARM BLANKETS APPLIED, WCTM. HR 100-130'S. SBP 100'S. OG CLAMPED. LOUIS IN PLACE AND DRAINING TO GRAVITY. PICC TO ANAID PATENT WITH DRESSING C/D/I. SEE SHIFT ASSESSMENT FOR FULL ASSESSMENT.
[2023-01-14] VITALS (89 sets, daily range): BP systolic 76–151; BP diastolic 57–104
--- NOTE | 2023-01-14 00:50 | NUR ---
UPDATE PT TEMP CONT TO DECLINE, CURRENTLY AT 96.1; BARE HUGGER NOW ON. 0000 DOSE OF METOPROLOL HELD D/T SBP 90, MAP IN THE 70'S. HR 90-100. LUNG SOUNDS IMPROVED; NO ETT SECREATIONS; RT HAS ADJUNSTED VENT SETTINGS SEVERAL TIMES, CURRENT VENT SETTINGS AC/PC RATE 28, 28/10, FIO2 100%; PT OXYGENATING BETTER WHEN LAYING ON HER LT SIDE VS THE RT. WCTM.
[2023-01-14 04:15] LABS: BASOPHILS ABSOLUTE AUTO 0.02 K/mm3 (0.00-0.23); BASOPHILS PERCENT AUTO 0 % (0-2); EOSINOPHILS ABSOLUTE AUTO 0.01 K/mm3 (0.00-0.68); EOSINOPHILS PERCENT AUTO 0 % (0-6); Hematocrit 27.7 % (33.0-51.0); Hemoglobin 8.4 g/dL (11.5-16.0); IMMATURE GRAN ABSOLUTE AUTO 0.15 K/mm3 (0.00-0.10); IMMATURE GRAN PERCENT AUTO 1 % (0-1); LYMPHOCYTES ABSOLUTE AUTO 0.47 K/mm3 (0.84-5.20); LYMPHOCYTES PERCENT AUTO 4 % (21-46); MONOCYTES ABSOLUTE AUTO 0.37 K/mm3 (0.16-1.47); MONOCYTES PERCENT AUTO 3 % (4-13); Mean Corpuscular HGB 31.3 pg (26.0-34.0); Mean Corpuscular HGB Conc 30.3 g/dL (31.5-36.5); Mean Corpuscular Volume 103 fL (80-100); Mean Platelet Volume 10.5 fL (9.1-12.4); NEUTROPHILS ABSOLUTE AUTO 11.91 K/mm3 (1.96-9.15); NEUTROPHILS PERCENT AUTO 92 % (41-73); Platelet Count 54 K/mm3 (150-400); RDW Coefficient Variation 16.7 % (11.7-14.2); RDW Standard Deviation 63.8 fL (35.1-46.3); Red Blood Cell Count 2.68 M/mm3 (3.80-5.20); White Blood Cell Count 12.93 K/mm3 (4.00-11.30)
[2023-01-14 04:27] LABS: International Normalized Ratio 2.33; Prothrombin Time Results 23.3 Sec (9.7-11.5)
[2023-01-14 05:28] LABS: Magnesium, Blood 1.6 mg/dL (1.6-2.4); Percent Saturation 10.3 % (15.0-50.0)
[2023-01-14 05:37] LABS: Albumin, Blood 2.1 g/dL (3.4-5.0); Albumin/Globulin Ratio 0.6 (0.8-1.8); Bilirubin, Total 2.2 mg/dL (0.1-1.0); Bun/Creatinine Ratio 30.2 (12.0-20.0); Calcium, Blood 7.6 mg/dL (8.5-10.1); Creatinine, Blood 0.73 mg/dL (0.40-1.00); Globulin, Blood 3.6 g/dL (2.2-4.0); Phosphorus, Blood 4.3 mg/dL (2.5-4.9); Potassium, Blood 4.3 mmol/L (3.5-5.5); Total Protein, Blood 5.7 g/dL (6.4-8.2)
--- NOTE | 2023-01-14 06:22 | NUR ---
END OF SHIFT SUMMARY NO ACUTE CHANGES SINCE 0000 ASSESSMENT. PT CONT TO BE ON THE VENT AND PRONED. VENT SETTINGS AC/PC RATE 28, 28/10, FIO2 100%. PT PARALIZED WITH NIMBEX INFUSING AT 3MCG/KG/MIN, TOF 2/4. PT SEDATED WITH PROPOFOL INFUSING AT 20MCG/KG/MIN; FENTANYL INFUSING AT 25MCG/HR. LOWEST TEMP 96.0; BARE HUGGER PLACED AND TEMP SLOWLY COMING UP, TEMP NOW 98.2. HR 90-110. SBP 90-110, MAP 70'S; METOPROLOL HELD AT 0000 & 0600. OG CLAMPED; SMALL BM THIS SHIFT. LOUIS IN PLACE WITH 369ML OUTPUT. LIPS AND EYE LIDS MORE SWOLLEN SINCE BEING SLIGHTLY TR[place]DE[place]BURG POSITION. PICC TO ANAID PATENT WITH DRESSING C/D/I. WILL REPORT TO AM RN WHEN AVAILABLE.
--- NOTE | 2023-01-14 12:34 | NUR ---
NOON: PT IS SUPINE, TRYING TO FIND RIGHT POSITION FOR GOOD Tv. SHE BEGAN TO DESATURATE AND HOLD @ 86%. RT CALLED, ETT ASSESSED, MAKING SURE IT WAS POSI- TIONED PROPERLY WITH ALL THE MOVEMENT THIS AM. SATS BACK TO 88-89%, Tv ARE HOVERING AROUND 300. WHEN HEAD OF BED IS UP PT'S Tv DECREASE, SEEM IMPROVED WHEN SHE IS LEFT SIDE UP. PARACENTESIS ON HOLD TODAY, RADIOLOGIST STATES THAT THE FLUID COLLECTION IS SMALL AND HER INR REMAINS ELEVATED. AFTER DISCUS- ALVIN WITH IT IS ELECTED TO HOLD OFF. HER LUNGS SOUND A BIT COURSE ANTERIORLY, DIMINISHED IN THE BASES. PT'S TEMPERATURE BEGAN DROPPING AGAIN AND ELIS HUGGER WAS PLACED. MISSY TIMNT POST LASIX.
--- NOTE | 2023-01-14 16:59 | NUR ---
JAZIEL RETURNED TO PRONE POSITION BY RT JULIEN AND 4 RNS. PT POSITIONED WITH RIGHT SIDE UP SLIGHTLY AND HEAD DOWN tV ARE IMPROVED WITH TRENDELENBERG. PROPOFOL @ 20MCG/KG/MIN, NIMBEX @ 3MCG/KG, NOREPI @ 2MCG/MIN
--- NOTE | 2023-01-14 17:24 | NUR ---
AFTER TURNING PATIENT TO PRONE POSITION, NOTED ToF 4/4 X2, NIMBEX INCREASED TO 3.5MCG AND PROPOFOL INCREASED TO 25MCG
--- NOTE | 2023-01-14 17:51 | NUR ---
JAZIEL CONTINUES ON VENTILATOR RATE 28, PEEP 10, FIO2 100%. PT HAS BEEN SUPINE FOR 8 HOURS AND THEN RETURNED TO PRONE. SHE IS HEAD DOWN SLIGHTLY TO IMPROVE HER TIDAL VOLUMES. SHE REMAINS PARALYZED AND SEDATED. NIMBEX @ 3.5MCG/KG/MIN, PROPOFOL @ 25MCG/KG/MIN, NOREPINEPHRINE @ 2MCG/MIN, NS @ TKO FOR FENTANYL GTT @ 25MCG/HR. EDEMA IMPROVING, LOUIS WITH ABOUT 1 LITER OUT WITH THE DOSING OF LASIX TODAY. NO BM. TUBE FEEDINGS RESTARTED AT 25ML/HR WITH 30ML H20 FLUSHES Q4H. BRUISING AND ECCHYMOTIC AREAS REMAIN OVER BACK/KNEES/ARMS. FACE SWOLLEN MOST OF THE DAY AFTER RETURNING TO SUPINE POSITION, re UNABLE TO ELEVATE HOB. SISTER IN LAW HERE AND READ TO HER TODAY. NOT IN TODAY. TEMP @ 99.6.
--- NOTE | 2023-01-14 19:15 | NUR ---
ASSUMPTION OF CARE PT IS INTUBATED VIA ETT TO VENTILATOR. SETTINGS ARE AC/PC RATE 28 PEEP 10 FIO2 100%. PT IS IN PRONE POSITION, SLIGHT TRENDELENBURG. OXYGEN SAT >90% AT THIS TIME. SHE IS ST ON THE PHOTOTYPESETTING EQUIPMENT MONITOR, LEVOPHED INFUSING TO MAINTAIN MAP >65. SHE IS PARALYZED W/NIMBEX. PROPOFOL IS INFUSING FOR SEDATION, FENTANYL GTT IS IN INFUSING FOR PAIN MANAGEMENT. LOUIS CATH DRAINING YELLOW URINE TO GRAVITY. OG TUBE IN PLACE W/TUBE FEEDING INFUSING PER MD ORDER. SHE IS AFEBRILE AT THIS TIME.
--- NOTE | 2023-01-14 20:48 | NUR ---
NIMBEX INREASED FROM 3.5 TO 4; TOF 4/4 ON 7.
--- NOTE | 2023-01-14 22:06 | NUR ---
PT STILL 4/F TOF ON 7, INCREASED NIMBEX FROM 4 TO 4.5
--- NOTE | 2023-01-14 23:27 | NUR ---
PT 0/4 TOF ON NIMBEX AT 4.5. DECREASED TO 4
[2023-01-15] VITALS (86 sets, daily range): BP systolic 85–127; BP diastolic 56–93
--- NOTE | 2023-01-15 00:05 | NUR ---
PT CORE TEMP DOWN TO 96.3. CATHRYN DOCKERY APPLIED.
--- NOTE | 2023-01-15 01:03 | NUR ---
PT REPOSITIONED TO OTHER SIDE, CONTINUES TO BE PRONE POSITION. PT HAD 2 LIQUID BM, RECTAL TUBE PLACED. MEPILEX AND STAT LOCK REPLACED. TF RESIDUAL >300ML SO FEEDING ON HOLD AT THIS TIME.
--- NOTE | 2023-01-15 01:47 | NUR ---
TOF 4/4 W/NIMBEX AT 4. INCREASED TO 4.5
--- NOTE | 2023-01-15 03:24 | NUR ---
TOF 4/4 ON 7 WITH NIMBEX AT 4.5, INCREASED TO 5
[2023-01-15 04:19] LABS: PCO2 Arterial 64.6 mmHg (35-45); PO2 Arterial 91.2 mmHg (80-100)
--- NOTE | 2023-01-15 04:51 | NUR ---
TOF 4/4 ON 7 W/NIMBEX AT 5, INCREASE TO 5.5
[2023-01-15 05:26] LABS: BASOPHILS ABSOLUTE AUTO 0.02 K/mm3 (0.00-0.23); BASOPHILS PERCENT AUTO 0 % (0-2); EOSINOPHILS PERCENT AUTO 0 % (0-6); Hematocrit 27.9 % (33.0-51.0); Hemoglobin 8.6 g/dL (11.5-16.0); IMMATURE GRAN ABSOLUTE AUTO 0.18 K/mm3 (0.00-0.10); IMMATURE GRAN PERCENT AUTO 1 % (0-1); LYMPHOCYTES ABSOLUTE AUTO 0.58 K/mm3 (0.84-5.20); LYMPHOCYTES PERCENT AUTO 5 % (21-46); MONOCYTES ABSOLUTE AUTO 0.57 K/mm3 (0.16-1.47); MONOCYTES PERCENT AUTO 5 % (4-13); Mean Corpuscular HGB Conc 30.8 g/dL (31.5-36.5); Mean Corpuscular Volume 101 fL (80-100); Mean Platelet Volume 10.2 fL (9.1-12.4); NEUTROPHILS ABSOLUTE AUTO 11.08 K/mm3 (1.96-9.15); NEUTROPHILS PERCENT AUTO 89 % (41-73); Platelet Count 69 K/mm3 (150-400); RDW Coefficient Variation 16.4 % (11.7-14.2); RDW Standard Deviation 60.9 fL (35.1-46.3); Red Blood Cell Count 2.77 M/mm3 (3.80-5.20); White Blood Cell Count 12.43 K/mm3 (4.00-11.30)
[2023-01-15 05:41] LABS: Albumin, Blood 2.1 g/dL (3.4-5.0); Albumin/Globulin Ratio 0.5 (0.8-1.8); Bilirubin, Total 1.9 mg/dL (0.1-1.0); Bun/Creatinine Ratio 38.2 (12.0-20.0); Calcium, Blood 8.2 mg/dL (8.5-10.1); Creatinine, Blood 0.84 mg/dL (0.40-1.00); Globulin, Blood 3.9 g/dL (2.2-4.0); Magnesium, Blood 1.5 mg/dL (1.6-2.4); Phosphorus, Blood 3.7 mg/dL (2.5-4.9); Potassium, Blood 4.1 mmol/L (3.5-5.5)
--- NOTE | 2023-01-15 06:03 | NUR ---
TOF 4/4 W/NIMBEX AT 5, INCREASED TO 5.5
--- NOTE | 2023-01-15 06:20 | NUR ---
SHIFT SUMMERY PT REMAINS IN PRONE POSITION, REPOSITIONED W/RT. PT REMAINED INTUBATED VIA ETT TO VENTILATOR. SETTINGS HAVE BEEN UNCHANGED OVERNIGHT. OXYGEN SAT 98% AT THIS TIME. SCANT SECRETIONS FROM ETT SUCTIONING. PT IS ON NIMBEX FOR VENT COMPLIANCE WELL PROPOFOL. FENTANYL GTT INFUSING ALSO. NOREPINEPHRINE INFUSING, TITRATE FOR MAP >65. PT IS SR-ST ON THE MONITOR. PT CORE TEMP WAS LOW EARLIER IN THE SHIFT, CATHRYN HUGGER WAS APPLIED AND PT TEMP NORMALIZED. CATHRYN HUGGER WAS TURNED OFF. RECTAL TUBE WAS PLACED FOR LIQUID STOOL. TEMP LOUIS INTACT AND DRAINING YELLOW URINE. THERE HAVE BEEN NO ACUTE CHANGES OVERNIGHT.
--- NOTE | 2023-01-15 10:39 | NUR ---
CARE OF PT ASSUMED AT 0700. PT PRONE, ON VENT(INITIAL SETTINGS:AC/PC 28/(28/0.85)100%/PEEP10). PT ON NIMBEX FOR VENT ERI AT 6MCG/KG/MIN. TOF 0/4. LEVOPHED WAS AT 1MCG, PROPOFOL AT 40MCG, FENT GTT AT 25MCG/HR. TF OFF. BIS WITH POOR READING. PT SYNCHRONIZED WITH VENT, SATS 100%. PT NOT BREATHING OVER VENT, ABSENT GAG/COUGH. DR BOWER IN AT 0900 TO SEE PT. PT UNPRONED AT [address] BOWER. PT UNPRONED W RT AND 4 RN'S. XR TAKEN AFTER, ETT IN GOOD PLACEMENT PER DR BOWER. LEVOPHED PLACED ON SB. TUBE FEEDS RESUMED PER DR BOWER. NIMBEX DECREASED TO 5. PLAN IS TO DECREASE NIMBEX TOLERATED WITH GOAL TO TITRATE OFF. DR BOWER CHANGED VENT SETTINGS TO 28/(24/90)90% PEEP 12. TOF IS NOW 4/4 BUT PT IS STILL SYNCHRONIZED W VENT. SATS 97%. PARACENTESIS IS PLANNED BY DR BOWER, CONSENT OBTAINED FROM PT'S VIA PHONE.
--- NOTE | 2023-01-15 11:49 | NUR ---
DR BOWER PERFORMED PARACENTESIS, 5250CC REMOVED, LIGHT YELLOW FLUID. JUST PRIOR TO PROCEDURE TV STARTED TO DROP AND DECREASED AROUND 100. FENTANYL 50MCG GIVEN PER DR BOWER. HEPARIN TO BE HELD FOR 2 HOURS THEN GIVE. BP TRENDING DOWN. TEMP TRENDING DOWN, NOW AT 95.1. BEAR HUGGER PLACED ON LOW D/T HYPOTENSION. WARM BLANKETS PLACED. ETT RETRACTED FROM 24CM TO 23CM AT TEETH BY RT PER DR BOWER.
--- NOTE | 2023-01-15 13:46 | NUR ---
Placed call to pt's Terry today, and he explained how both him and the pt's lives have changed over the past 2 years. He states the pt has an extensive hisorty of drinking alcohol, and she had begun to show signs of liver damage over 2 years ago. He states the bigger issues began for pt after being placed on a ventilator with Covid 2 years ago, and he reports "she never really returned to herself after that". After this discussion, Terry elected to change pt's code status to DNR. Received or from Dr. Villarreal.
--- NOTE | 2023-01-15 13:52 | NUR ---
SATS 86-89%, DR BOWER NOTIFIED. CHEST XRAY ORDRED AND TAKEN, DR BOWER IN UNIT TO SEE RESULTS. SATS NOW 88-89%; DR BOWER OKAY WITH THIS. NIMBEX NOT TO BE DECREASED ANY LOWER THAN 4.5MCG FOR NOW. FEBRUARY PRONE PT AT 1700 TONIGHT. BP IMPROVING. TEMP AT 95.0 DESPITE BEAR HUGGER. PALLIATIVE CARE SPOKE W PT'S , PT NOW DNR STATUS.
--- NOTE | 2023-01-15 17:00 | NUR ---
DR BOWER CHANGED VENT SETTINGS TO AC/VC 26(250/40)70% 10PEEP. SATS 93%. ALBUMIN GIVEN. TEMP UP TO 97.7. MAP HAS REMAINED >65.
--- NOTE | 2023-01-15 19:00 | NUR ---
ASSUMED CARE OF PT AT 1900 PT INTUBATED AND SEDATED. PROP AT 40 MCG, NIMBEX AT 4.5 MCG. TKO 10 MLS/HR. VITALS ARE STABLE AT THIS TIME. PLEASE SEE FULL ASSESSMENT FOR MORE DETAILS.
--- NOTE | 2023-01-15 20:34 | NUR ---
TOF 4/4 NIMBEX INCREASED TO 5.0 FROM 4.5. WILL CHECK IN 60 MINS FOR TOF AGAIN.
--- NOTE | 2023-01-15 21:32 | NUR ---
TOF 4/4 NIMBEX AT 5.0. INCREASED NIMBEX TO 5.5.
[2023-01-16] VITALS (64 sets, daily range): BP systolic 83–139; BP diastolic 50–80
[2023-01-16 04:08] LABS: Hematocrit 23.2 % (33.0-51.0); Hemoglobin 7.4 g/dL (11.5-16.0); Mean Corpuscular HGB 31.6 pg (26.0-34.0); Mean Corpuscular HGB Conc 31.9 g/dL (31.5-36.5); Mean Corpuscular Volume 99 fL (80-100); Mean Platelet Volume 10.6 fL (9.1-12.4); RDW Coefficient Variation 16.4 % (11.7-14.2); RDW Standard Deviation 58.8 fL (35.1-46.3); Red Blood Cell Count 2.34 M/mm3 (3.80-5.20); White Blood Cell Count 5.48 K/mm3 (4.00-11.30)
[2023-01-16 04:43] LABS: Magnesium, Blood 1.6 mg/dL (1.6-2.4)
[2023-01-16 04:44] LABS: Bun/Creatinine Ratio 41.1 (12.0-20.0); Calcium, Blood 7.5 mg/dL (8.5-10.1); Creatinine, Blood 0.95 mg/dL (0.40-1.00); Phosphorus, Blood 4.8 mg/dL (2.5-4.9); Potassium, Blood 3.5 mmol/L (3.5-5.5)
[2023-01-16 04:50] LABS: Platelet Count 35 K/mm3 (150-400)
--- NOTE | 2023-01-16 05:43 | NUR ---
END OF SHIFT SUMMARY PT REMAINS SEDATED, INTUBATED AND NIMBEX RUNNING AT 6.5 MCG. TOF STILL AT 4/4. PROP AT 40 MCG. QTC RANGING HIGH IN THE MIDDLE OF SHIFT AND RESOLVED SHORTLY AFTER. URINE OUT THIS SHIFT 350 MLS. TF AT 40 MLS/HR WITH Q4 30 MLS FLUSH. NO OTHER ACUTE CHANGES OVER NIGHT. WILL CONTINUE TO MONITOR UNTIL DAY SHIFT RN IS GIVEN REPORT.
--- NOTE | 2023-01-16 09:37 | NUR ---
CARE OF PT ASSUMED AT 0700. PT SEDATED AND PARALYZED FOR MECH VENT ERI. PROPOFOL AT 40MCG. NIMBEX INITIALLY AT 4.0, DECREASED TO 3.5MCG. PT IS SYNCHRONIZED W VENT. ABSENT COUGH, GAG. NO MOVEMENT NOTED. PT NOT BREATHING OVER VENT. PT INITIALLY TURNED TO RIGHT, THEN DESATURATED TO 86%, PT THEN TURNED TO LEFT W IMPROVEMNET IN SATS. PT HYPOTENSIVE W MAPS>65. HGB 7.4, PLT 35. HEPARIN HELD UNTIL DISCUSSED W DR BOWER. MISSY FOUND KINKED, LOUIS FLUSHED (10CC) W GOOD RETURN OF 350CC URINE.
--- NOTE | 2023-01-16 10:00 | NUR ---
DR BOWER AT BEDSIDE, GIVEN FULL UPDATE. HEPARIN HELD. NIMBEX STOPPED PER DR BOWER. LEVOPHED TO BE STARTED TO KEEP MAP >65.
--- NOTE | 2023-01-16 10:51 | NUR ---
PT NOT TOLERATING TURNS, ONLY TOLERATING LEFT SIDE DOWN. SATS DROP WHEN PLACED ON RIGHT SIDE OR SUPINE/FOWLERS. DR BOWER NOTIFIED. XR ORDERED. LEVOPHED STARTED AT 1MCG, MAPS NOW >65. NIMBEX HAS BEEN OFF >1HR, RESP JUST NOW INCREASING SLIGHTLY OVER VENT.
--- NOTE | 2023-01-16 11:53 | NUR ---
H&H SENT. PT DESATURATING DOWN TO 85%, DR BOWER AT BEDSIDE. FIO2 INCREASED TO 75%. PT IN REVERSE TREND. ON RIGHT SIDE. SATS 88-92%. LEVOPHED ON STANDBY. PT NOW HAS COUGH, AND IS OCC BREATHING OVER VENT.
[2023-01-16 12:01] LABS: Hematocrit 26.5 % (33.0-51.0); Hemoglobin 8.3 g/dL (11.5-16.0)
--- NOTE | 2023-01-16 14:07 | NUR ---
PT'S AND DAUGHTER CAME TO VISIT FOR ABOUT AN HOUR AROUND 1300. UPDATE GIVEN, QUESTIONS ANSWERED. BP REMAINS STABLE OFF OF LEVOPHED. SATS >90%.NIMBEX REMAINS OFF.
--- NOTE | 2023-01-16 15:20 | NUR ---
KENNEL AIDE CHANGED TO 12MCG/HR AT [address] BOWER.
--- NOTE | 2023-01-16 15:47 | NUR ---
RATE DECREASED TO [address] BOWER AROUND 1515. RT NOTIFIED.
--- NOTE | 2023-01-16 17:08 | NUR ---
Spoke with Reyna, bedside RN. She reports pt tolerating the vent without NIMBEX today. Pt's daughter did visit for quite some time today. Update given to pt's Terry who was in earlier to see her today along with their daughter. He states things sound "a little bit better" today. No other changes at this time. Will continue providing therapeutic support.
--- NOTE | 2023-01-16 17:46 | NUR ---
PT'S [id number] IRINEO AT BEDSIDE.
--- NOTE | 2023-01-16 19:32 | NUR ---
ASSUMPTION OF CARE PT IS INTUBATED AND VENTILATED VIA ETT TUBE. BREATHING SLIGHTLY OVER THE VENT AT THIS TIME. OXYGEN SAT 88-92%. PT IS ST ON THE NURSING MANAGER W/BP WNL AT THIS TIME. NO PARALYTICS INFUSING AT THE CURRENT TIME. SEDATION W/PROPOFOL AND FENTANYL. TF INFUSING AT GOAL. LOUIS CATH INTACT AND DRAINING YELLOW URINE. RECTAL TUBE IN PLACE. NO MOVEMENT NOTED AT THE CURRENT TIME.
[2023-01-17] VITALS (42 sets, daily range): BP systolic 94–132; BP diastolic 64–93
--- NOTE | 2023-01-17 02:38 | NUR ---
PT FIO2 INCREASED BY JORGE RT FROM 70-75% EARLIER IN THE SHIFT. ATTEMPTED TO GIVE A GENTLE BATH, PT DESATURATED AND MAINTAINED IN THE 80S WITH REPOSITIONING LIMBS ONLY. FIO2 INCREASED TO 80%. OXYGEN SAT ARE NOW MAINTAINING ABOVE 90%.
[2023-01-17 04:13] LABS: Hematocrit 26.4 % (33.0-51.0); Hemoglobin 8.3 g/dL (11.5-16.0); Mean Corpuscular HGB Conc 31.4 g/dL (31.5-36.5); Mean Corpuscular Volume 99 fL (80-100); Mean Platelet Volume 12.5 fL (9.1-12.4); RDW Coefficient Variation 16.9 % (11.7-14.2); RDW Standard Deviation 60.7 fL (35.1-46.3); Red Blood Cell Count 2.68 M/mm3 (3.80-5.20)
[2023-01-17 04:32] LABS: Platelet Count 39 K/mm3 (150-400)
[2023-01-17 06:21] LABS: Albumin, Blood 2.4 g/dL (3.4-5.0); Albumin/Globulin Ratio 0.6 (0.8-1.8); Bilirubin, Direct 1.3 mg/dL (0.0-0.3); Bilirubin, Indirect 0.2 mg/dL (0.1-0.7); Bilirubin, Total 1.5 mg/dL (0.1-1.0); Bun/Creatinine Ratio 49.5 (12.0-20.0); Calcium, Blood 7.4 mg/dL (8.5-10.1); Creatinine, Blood 1.07 mg/dL (0.40-1.00); Globulin, Blood 3.7 g/dL (2.2-4.0); Magnesium, Blood 1.6 mg/dL (1.6-2.4); Potassium, Blood 4.1 mmol/L (3.5-5.5); Total Protein, Blood 6.1 g/dL (6.4-8.2)
--- NOTE | 2023-01-17 06:27 | NUR ---
SHIFT SUMMERY PT CONTINUES TO BE VENTILATED VIA ETT. OXYGEN REQUIREMENTS INCREASED OVERNIGHT FROM 70% TO 95% FIO2 IN ORDER FOR PT TO MAINTAIN OXYGEN SAT >90%. SHE HAS BEEN SR-ST ON THE LIFE SKILLS INSTRUCTOR AND BP HAS BEEN WNL, NO PRESSORS REQUIRED OVERNIGHT. PT HAD ADEQUATE UOP. RECTAL TUBE DRAINING LIQUID BROWN STOOL. TF INFUSING VIA OG AT GOAL, PT TOLERATING AT THIS TIME. ABDOMEN IS DISTENDED AND FIRM. SHE IS UNRESPONSIVE. PROPOFOL AND FENTANYL INFUSING FOR VENT COMPLIANCE. PT HAS BEEN AFEBRILE. SHE HAS NOT TOLERATED ANY STIMULATION, REQUIRING AN INCREASE IN OXYGEN REQUIREMENTS WITH MOVEMENTS OVERNIGHT. NO PARALYTICS WERE NEEDED THIS SHIFT. PT IS JAUNDICE, PLATLETS ARE CRITICALLY LOW AGAIN-DR LUCAS NOTIFIED.
--- NOTE | 2023-01-17 14:02 | NUR ---
in to see pt with kalyanian at bedside. supportive given.
--- NOTE | 2023-01-17 15:02 | NUR ---
JAZIEL HAS BEEN OFF SEDATION SINCE AROUND NOON, SHE IS NOT RESPONDIVE TO VERBAL STIMULI. SHE HAS BEEN COUGHING SOME. ON HER LEFT SIDE HER SATURATIONS ARE LOWER AND THE FIO2 WAS TURNED UP TO 70% BY RT CRISTA. HEAD OF BED ELEVATED, TIDAL VOLUMES IN THE 400'S.
--- NOTE | 2023-01-17 16:41 | NUR ---
DURING 1600 ORAL CARE PT'S LEFT FRONT TOOTH IS NOTED TO BE VERY LOOSE. SU, DENTAL HYGIENIST CALLED TO ASSESS. STATES THAT HER TEETH HAVE BEEN LOOSE FROM THE BEGINNING, SHE WAS MAKING A NOTE. HER SEDATION HAS BEEN OFF SINCE AROUND NOON TIME, SHE CONTINUES TO NOT OPEN HER EYES OR FOLLOW ANY COMMANDS. SHE DOES COUGH, NO GAG WITH ORAL SUCTIONING, FACIAL GRIMACING NOTED WITH CARE AND MOVEMENT. CONTINUES WITH LIQUID STOOL AND RECTAL TUBE, WITH LEAKING ABOUT THE SITE. GOOD URINE OUTPUT WITH RESPONSE TO LASIX.
--- NOTE | 2023-01-17 22:00 | NUR ---
ASSUMED CARE AT 1900 PT LAYING IN BED INTUBATED WITH VENT SETTINGS AC/PC 15, 8/10, 70%; MILD BLOODY ORAL SECREATIONS R/T FRONT TOOTH. PT OFF OF SEDATION MEDICATION OF EARLIER TODAY DURING DAY SHIFT; PT NOT HAVEING PURPOSEFUL MOVEMENT; SOME COUGHING NOTED WHILE REPOSITIONING; FENTANYL INFUSING AT 12MCG/HR. HR 95-105; BP STABLE WITH SBP 120. AFEBRILE. VHP INFUSING AT GOAL OF 50ML/HR WITH 30ML WATER FLUSHES Q4HR. RECTAL TUBE IN PLACE WITH BROWN LIQUID STOOL. LOUIS IN PLACE AND DRAINING TO GRAVITY. PICC TO ANAID PATENT WITH DRESSING C/D/I. SEE SHIFT ASSESSMENT FOR FULL ASSESSMENT.
[2023-01-18] VITALS (46 sets, daily range): BP systolic 88–148; BP diastolic 66–103
--- NOTE | 2023-01-18 00:30 | NUR ---
UPDATE PT LOUIS LEAKING; SHE WAS FOUND IN A LARGE PUDDLE. LOUIS BALLOON ONLY HAD 7ML OF NS, 3ML ADDED. WCTM.
--- NOTE | 2023-01-18 04:30 | NUR ---
UPDATE PT LOUIS LEAKING AGAIN; SHE WAS FOUND IN ANOTHER LARGE PUDDLE. LOUIS CHANGED OUT FROM A 16F TO AN 18F. IMMEDIATLY 350ML OF OUTPUT WITH THE NEW CATHETER. UA SENT. KAMERON.
[2023-01-18 04:37] LABS: Hemoglobin 9.4 g/dL (11.5-16.0); Mean Corpuscular HGB 31.2 pg (26.0-34.0); Mean Corpuscular HGB Conc 32.4 g/dL (31.5-36.5); Mean Corpuscular Volume 96 fL (80-100); Mean Platelet Volume 11.3 fL (9.1-12.4); RDW Standard Deviation 60.3 fL (35.1-46.3); Red Blood Cell Count 3.01 M/mm3 (3.80-5.20); White Blood Cell Count 11.26 K/mm3 (4.00-11.30)
[2023-01-18 04:51] LABS: Platelet Count 47 K/mm3 (150-400)
[2023-01-18 05:04] LABS: Source, Urine Foley catheter
[2023-01-18 05:08] LABS: Bun/Creatinine Ratio 65.4 (12.0-20.0); Calcium, Blood 7.9 mg/dL (8.5-10.1); Creatinine, Blood 0.84 mg/dL (0.40-1.00); Potassium, Blood 3.2 mmol/L (3.5-5.5)
[2023-01-18 05:17] LABS: Bilirubin, Urine Neg (Neg); Blood, Urine 2+ (Neg); Glucose Qualitative, Urine Neg (Neg); Ketones, Urine Neg (Neg); Leukocyte Esterase, Urine Neg (Neg); Nitrite, Urine Neg (Neg); Protein, Urine Neg (Neg); Urobilinogen, Urine NORM (Normal)
[2023-01-18 05:34] LABS: Appearance, Urine Clear (Clear); Bacteria Not Seen /hpf; Color, Urine Yellow (P-Yellow); Squamous Epithelial Cells Not Seen /hpf (Few); White Blood Cells, Urine 0-2 /hpf (0-5); Yeast/Fungi Urine Rare /hpf
--- NOTE | 2023-01-18 07:17 | NUR ---
END OF SHIFT SUMMARY NO ACUTE EVENTS OVERNIGHT. PT CONT TO BE INTUBATED WITH VENT SETTINGS AC/PC RATE 15, 8/10, FIO2 70%. PT CONT TO BE UNRESPONSIVE; NO SEDATION OTHER THAN FENTANYL INFUSING AT 12MCG/HR. HR 90-100. BP STABLE. RECTAL TUBE IN PLACE WITH 300ML OUTPUT. LOUIS NOT LEAKING SINCE REPLACED. PICC TO ANAID PATENT WITH DRESSING C/D/I. AM POTASSIUM WAS 3.2; DR BELL NOTIFIED AND PROVIDED KCL ORDERS. REPORT GIVEN TO RHETT WHEELER.
--- NOTE | 2023-01-18 15:00 | NUR ---
JAZIEL CONTINUES ON VENTILATOR, HAS BEEN WORKING WITH THE VENTILATOR PARAMETERS THROUGHOUT THE DAY. PT CONTINUES WITH SATURATIONS IN THE LOW 90S. BLOOD PRESSURE STABLE AND HEART RATE HAS INCREASED TO THE 120'S. PT IS NO LONGER ON THE FENTANYL DRIP, SHE CONTINUES TO NOT OPEN HER EYES OR SHOW ANY PURPOSEFUL MOVEMENT. SHE DOES NOT FOLLOW COMMANDS. HEEL PROTECTORS ARE PLACED AFTER ROM WITH RIGID JOINTS. ARMS CONTINUE WITH GOOD MOVEMENT DURING ROM. PT WITH EVIDENCE OF VERY LOOSE TEETH, MADE AWARE AND DENTAL HYGIENIST CONSULTED. PT'S TWO VERY LOOSE TEETH WERE REMOVED, ONE FROM THE TOP LEFT AND ONE FROM THE BOTTOM RIGHT. UPON CLEANING UP THE ORAL CAVITY AFTER REMOVAL OF THE BOTTOM TOOTH ANOTHER TOOTH WAS LOCATED IN THE POUCH OF THE LOWER LIP BETWEEN THE GUM AND LIP. MOUTH HAS BEEN CLEANED AND ASSESSED FREQUENTLY FOR CONTINUED BLEEDING AND EVIDENCE OF ANY FURTHER DAMAGE.
--- NOTE | 2023-01-18 16:52 | NUR ---
NOTED PT'S INCREASE IN HEART RATE AND ELEVATED TEMPERATURE. DISCUSSED WITH STAFF AND PERFORMED A BEDSIDE ULTRASOUND TO ASSESS FLUID IN THE ABDOMEN. FLUID PRESENT, DECISION TO INCREASE DIURETICS.
--- NOTE | 2023-01-18 17:50 | NUR ---
PHONE CALL TO WITH OVERALL UPDATE FROM LAST TWO DAYS OF CARE. RECEPTIVE TO CALL AND PT'S CONDITION. INFORMED OF PATIENT'S TEETH BEING RE- MOVED. UNDERSTOOD. JAZIEL REMAINS ON THE VENTILATOR, PEEP IS DOWN TO 8 AND SHE HAS NOT DROPPED HER SATS WITH THE CHANGE. SHE REMAINS IN THE LOW 90'S. SHE CONTINUES WITH ELEVATED HEART RATE IN THE 120'S AND TEMP HOVERING AT 100.3. FAN ON AND COVERS REMOVED. LOUIS WITH GOOD URINE OUTPUT, RECTAL TUBE WITH LESS RETURN THAN THE PREVIOUS 24 HOURS. ROM DONE WITH FEET/ANKLES SEVERAL TIMES TODAY. LOTION APPLIED WELL.
--- NOTE | 2023-01-18 20:00 | NUR ---
ASSUMED CARE PT IS INTUBATED W/ VENT SETTINGS AT 15/8/8/65%; SPO2 >92%; MAP >65 W/ SBP IN THE 100'S; HR IN THE 110-120'S. PT GRIMACES TO NOXIOUS STIMULI. PT WILL SLIGHTLY MOVE LOWER EXTREMITIES W/ NOXIOUS STIMULI, BUT MOVEMENT IS NOT PURPOSEFUL. DOES NOT OPEN EYES OR FOLLOW COMMANDS. COARSE LUNG SOUNDS. SEDATION IS CURRENTLY OFF.
[2023-01-19] VITALS (39 sets, daily range): BP systolic 104–141; BP diastolic 67–127
--- NOTE | 2023-01-19 02:45 | NUR ---
UPDATE PT SLIGHTLY OPENED HER EYES W/ 0200 REPOSITIONING, BUT DID NOT RESPOND TO NAME OR FOLLOW ANY COMMANDS. NO OTHER NEURO CHANGES OBSERVED AT THIS TIME.
[2023-01-19 03:30] LABS: Hematocrit 25.4 % (33.0-51.0); Mean Corpuscular HGB 30.5 pg (26.0-34.0); Mean Corpuscular HGB Conc 31.5 g/dL (31.5-36.5); Mean Corpuscular Volume 97 fL (80-100); Mean Platelet Volume 12.8 fL (9.1-12.4); NRBC ABSOLUTE 0.03 K/mm3 (0.00-0.02); NRBC Auto 0.3 /100 WBC (0.0-0.2); RDW Coefficient Variation 17.5 % (11.7-14.2); RDW Standard Deviation 62.1 fL (35.1-46.3); Red Blood Cell Count 2.62 M/mm3 (3.80-5.20); White Blood Cell Count 11.84 K/mm3 (4.00-11.30)
[2023-01-19 03:51] LABS: Bun/Creatinine Ratio 71.4 (12.0-20.0); Calcium, Blood 6.8 mg/dL (8.5-10.1); Creatinine, Blood 0.67 mg/dL (0.40-1.00); Potassium, Blood 2.9 mmol/L (3.5-5.5)
[2023-01-19 03:55] LABS: Platelet Count 45 K/mm3 (150-400)
--- NOTE | 2023-01-19 05:16 | NUR ---
SHIFT SUMMARY PT INTUBATED ON 29/05//65%; SPO2 >92%; MAP >65 W/ SBP IN THE 110'S; HR IN THE 110'S. PT NEURO STATUS HAS NOT CHANGED SINCE ASSUMPTION OF CARE/PREVIOUS NOTES. INTERMITTENTLY PT WOULD QUICKLY BREATHE TWICE IN A ROW, GRIMACE, AND TEAR UP; 25 MCG OF FENTANYL GIVEN, WHICH HAS RESOLVED THIS. MINIMAL TO NO OUTPUT IN RECTAL TUBE; HYPOACTIVE BOWEL TONES AUSCULTATED; INGUINAL HERNIA IS EASILY COMPRESSIBLE. PT HAS NOT REPEATED EYE OPENING DURING REPOSITIONING. MEPILEX REPLACED DURING BED BATH. LOUIS CATHETER/RECTAL TUBE PATENT AND DRAINING TO GRAVITY.
--- NOTE | 2023-01-19 07:49 | NUR ---
ASSUMED CARE OF PT AT 0715 BEDSIDE REPORT RECEIVED FROM SUMMER DIAZ. PT IS OFF SEDATION AND HAS NOT YET HAD MUCH NEUROLOGICAL RESPONSE. INTUBATED AND ON VENT, NO CHANGE TO SETTINGS OVERNIGHT. ST 105-120, BP STABLE. TF CONTINUES AT GOAL, RECTAL TUBE IN PLACE. LOUIS TO GRAVITY, PATENT AND DRAINING YELLOW URINE. SKIN WITH DISCOLORATION AND DRYNESS TO BILAT LOWER LEGS, NO OPEN SKIN AREAS REPORTED. PICC WITH NS TKO INFUSING W/IVPB. RN TO CONTINUE TO MONITOR.
[2023-01-19 12:43] LABS: Magnesium, Blood 1.4 mg/dL (1.6-2.4); Potassium, Blood 3.9 mmol/L (3.5-5.5)
--- NOTE | 2023-01-19 17:40 | NUR ---
END OF SHIFT SUMMARY: NEURO: WITHDRAWS FROM PAIN LEFT FOOT ONLY, ALL OTHER LIMBS HAVE NO RESPONSE TO PAIN. NO SEDATION INFUSING. MEDICATED FOR PAIN X1 WITH 25 MCG FENTANYL. PT GRIMACING AND TEARING UP THIS AFTERNOON BUT DOES NOT OPEN EYES. NO RESTRAINTS NEEDED DUE TO PROFOUND WEAKNESS. CARDIAC: ST 105-120, BP WNL. RESP: VENT SETTINGS REMAIN UNCHANGED WITH THE EXCEPTION OF TITRATING FIO2 DOWN TO 55% TO MAINTAIN O2 SAT > 90%. O2 SATS LOWER WHEN PT POSITIONED ON LEFT SIDE. SPUTUM SPECIMEN SENT. MINIMAL SECRETIONS WHEN SUCTIONING ETT. MILD ORAL BLEEDING NOTED, PT HAD 3 TEETH PULLED YESTERDAY. GI: OGT WITH VHP INFUSING AT 50 ML/HR (GOAL) WITH 30 ML H20 FLUSHES EVER 4 HOURS. BS HYPOACTIVE. RECTAL TUBE IN PLACE WITH 200ML OUT OF BROWN LIQUID STOOL. : LOUIS TO GRAVITY, PATENT AND DRAINING CLEAR YELLOW URINE. > 2LITERS UO AFTER LASIX IVP. SKIN: BLE WITH DRY CRACKED SKIN. BILAT KNEES WITH BRUISING DUE TO FALL PRIOR TO HOSPITALIZATION. NO OPEN AREAS NOTED. IV: PICC TO RIGHT UPPER ARM, D5W AT TKO INFUSING + IVPB. PIV REMOVED, NO LONGER NEEDED. FAMILY AT BEDSIDE, SISTER IN LAW, AND DAUGHTER ALL UPDATED ON CURRENT CONDITION AND POC. ALL QUESTIONS ANSWERED. MAG REPLACED, AM LABS ORDERED PER DR. BECKHAM.
--- NOTE | 2023-01-19 20:35 | NUR ---
ASSUMED CARE AT 1900 PATIENT IS INTUBATED ON NO SEDATION. COUGH AND GAG PRESENT WILL SOME LEFT FOOT MOVEMENT. EXTREMITIES FLACCID OTHERWISE. PUPILS EQUAL AND REACTIVE BUT NO EYE OPENING. 02 SATS 90% ON VENT, AC PC RATE 15 8/8 FI02 45%, RR 22, LS COARSE IN UPPER LOBES. HR ST 110-120s, BP STABLE. OG WITH TUBE FEED AT GOAL RATE, VITAL HP. ABD LARGE AND DISTENDED WITH HYPOACTIVE BOWEL TONES. RETAL TUBE DRAINING LIQUID BROWN STOOL. TEMP LOUIS PATENT AND DRAINING CLEAR YELLOW TO GRAVITY. PATIENT REPOSITIONED. SEE SHIFT ASSESSMENT FOR MORE INFORMATION.
[2023-01-20] VITALS (34 sets, daily range): BP systolic 103–146; BP diastolic 68–104
[2023-01-20 03:36] LABS: BASOPHILS ABSOLUTE AUTO 0.02 K/mm3 (0.00-0.23); BASOPHILS PERCENT AUTO 0 % (0-2); EOSINOPHILS ABSOLUTE AUTO 0.02 K/mm3 (0.00-0.68); EOSINOPHILS PERCENT AUTO 0 % (0-6); Hematocrit 30.3 % (33.0-51.0); Hemoglobin 9.3 g/dL (11.5-16.0); IMMATURE GRAN ABSOLUTE AUTO 0.21 K/mm3 (0.00-0.10); IMMATURE GRAN PERCENT AUTO 1 % (0-1); LYMPHOCYTES ABSOLUTE AUTO 0.73 K/mm3 (0.84-5.20); LYMPHOCYTES PERCENT AUTO 5 % (21-46); MONOCYTES ABSOLUTE AUTO 1.26 K/mm3 (0.16-1.47); MONOCYTES PERCENT AUTO 8 % (4-13); Mean Corpuscular HGB 30.3 pg (26.0-34.0); Mean Corpuscular HGB Conc 30.7 g/dL (31.5-36.5); Mean Corpuscular Volume 99 fL (80-100); Mean Platelet Volume 12.2 fL (9.1-12.4); NEUTROPHILS ABSOLUTE AUTO 13.41 K/mm3 (1.96-9.15); NEUTROPHILS PERCENT AUTO 86 % (41-73); NRBC ABSOLUTE 0.02 K/mm3 (0.00-0.02); NRBC Auto 0.1 /100 WBC (0.0-0.2); Platelet Count 60 K/mm3 (150-400); RDW Coefficient Variation 18.6 % (11.7-14.2); RDW Standard Deviation 67.1 fL (35.1-46.3); Red Blood Cell Count 3.07 M/mm3 (3.80-5.20); White Blood Cell Count 15.65 K/mm3 (4.00-11.30)
[2023-01-20 03:50] LABS: International Normalized Ratio 2.23; Prothrombin Time Results 22.4 Sec (9.7-11.5)
[2023-01-20 03:52] LABS: Albumin, Blood 2.2 g/dL (3.4-5.0); Albumin/Globulin Ratio 0.5 (0.8-1.8); Bilirubin, Total 2.6 mg/dL (0.1-1.0); Bun/Creatinine Ratio 74.9 (12.0-20.0); Calcium, Blood 8.7 mg/dL (8.5-10.1); Creatinine, Blood 0.77 mg/dL (0.40-1.00); Globulin, Blood 4.2 g/dL (2.2-4.0); Magnesium, Blood 1.9 mg/dL (1.6-2.4); Potassium, Blood 3.7 mmol/L (3.5-5.5); Total Protein, Blood 6.4 g/dL (6.4-8.2)
--- NOTE | 2023-01-20 05:42 | NUR ---
SHIFT SUMMARY PATIENT REMAINS INTUBATED ON NO SEDATION. GRIMACES, COUGH, GAG, AND WITHDRAWS IN BLE AT TIMES. NO EYE OPENING OR PURPOSEFUL MOVEMENT. 02 SATS IN THE UPPER 80s, VENT SETTINGS CHANGED BY RT TO MAINTAINS 02 SATS AT 90%, PATIENT WAS ALSO STACKING BREATHS WITH INCREASED RR. VENT SETTINGS NOW AC PC RATE 15 12/10, FI02 50%, RR 20. SMALL AMOUNT OF THICK GLASGOW SPUTUM SUCTIONED. HR ST 120, BP STABLE. OG WITH TF AT GOAL RATE. RECTAL TUBE WITH LIQUID BROWN OUTPUT. LOUIS PATENT AND DRAINING TO GRAVITY. BED BATH DONE THIS SHIFT, PATIENT REPOSITIONED Q2 HOURS.
--- NOTE | 2023-01-20 09:24 | NUR ---
AM NOTE... ASSUMED CARE OF PT AT 0700. PT IS INTUBATED AND HAS BEEN OFF SEDATION SINCE 01/17. PT WILL GRIMACE TO NOXIOUS/PAINFUL STIMULI BUT DOES NOT FOLLOW COMMAMNDS. ET TUBE IS 8.0 AND 24 AT THE TEETH. VENT SETTINGS ARE CHANGED FROM YESTERDAY PER NOC SHIFT RN REPORT. CURRENT VENT SETTINGS ARE AC/PC: 15/12/10/55% WITH O2 SATS 89-93%. L/S COARSE ON THE LEFT UPPER LOBE CLEAR ON THE RIGHT SIDE DIM T/O THE LOWER LOBES. RR IN THE 20'S. OG TUBE RUNNING TUBE FEED AT 50MLS/HR WHICH IS GOAL. BT PRESENT AND HYPOACTIVE, ABD HAS MODERATE DISTENTION AND IS SILIGHTLY FIRM TO PALPATION. RECTAL TUBE IS PATENT AND DRAINING DARK BROWN STOOL TO GRAVITY. TEMP LOUIS IN PLACE AND DRAINING TO GRAVITY. PT'S TEMP IS 99.6. PT'S AT THE BEDSIDE THIS AM, HE WAS UPDATED BY DR. BECKHAM, ALL QUESTIONS ANSWERED. WILL CONTINUE TO MONITOR.
--- NOTE | 2023-01-20 15:26 | NUR ---
PT UPDATE..... PT'S RECTAL TUBE WAS D/C'd PER RN CLINICAL JUDGEMENT. PT'S STOOL HAS PROGRESSIVELY GOTTEN THICKER AND MORE PASTY T/O THIS SHIFT. NO ESCORIATIONS NOTED TO THE PT'S RECTUM PRIOR OR AFTER REMOVAL. PT HAD 200MLS OF DARK BROWN STOOL AT THE TIME THE RECTAL TUBE WAS D/C'd. WILL CONTINUE TO MONITOR.
--- NOTE | 2023-01-20 18:15 | NUR ---
SHIFT SUMMARY.... NO ACUTE NEGATIVE CHANGES NOTED THIS SHIFT. THE PT STARTED TO OPEN HER EYES SPONTAINIOUSLY BUT WOULD NOT TRACK OR FOLLOW COMMANDS. PT'S VS STABLE T/O THIS SHIFT. PT'S TMAX WAS 99.9. PT'S FAMILY AT THE BEDSIDE SEVERAL TIMES TODAY, THEY WERE UPDATED ON THE PT'S CONDITON AND PLAN OF CARE. WILL CONTINUE TO MONITOR UNTIL REPORT IS GIVEN TO ONCOMING RN.
--- NOTE | 2023-01-20 19:35 | NUR ---
ASSUMED CARE AT 1900 PATIENT IS INTUBATED ON NO SEDATION. PATIENT OPENS EYES TO PAINFUL STIMULI. UNABLE TO FOLLOW COMMANDS AND UPPER EXTREMITIES FLACCID. 02 SATS 92% ON VENT AC PC 15 18/10 45%. RR 15. HR ST 115, BP STABLE. OG INFUSING TB AT GOAL RATE. TEMP LOUIS PATENT AND DRAINING TO GRAVITY. PATIENT REPOSITIONED AND MEDICATED FOR PAIN. SEE SHIFT ASSESSMENT FOR MORE INFORMATION.
[2023-01-21] VITALS (18 sets, daily range): BP systolic 107–151; BP diastolic 71–100
--- NOTE | 2023-01-21 04:48 | NUR ---
SHIFT SUMMARY PATIENT REMAINS INTUBATED. NO CHNAGES IN NEURO STATUS. MEDICATED WITH FENTANYL FOR PAIN PRN. 02 SATS 97% ON VENT AC PC RATE 15, 18/10 45%. HR [address] 115, BP STABLE. OG WITH TF TO GOAL RATE. TEMP LOUIS PATENT AND DRAINING TO GRAVITY. BED BATH DONE. PATIENT REPOSITIONED Q2 HOURS. REPORT TO ANUSHKA WHEELER
[2023-01-21 04:55] LABS: BASOPHILS ABSOLUTE AUTO 0.04 K/mm3 (0.00-0.23); BASOPHILS PERCENT AUTO 0 % (0-2); EOSINOPHILS ABSOLUTE AUTO 0.06 K/mm3 (0.00-0.68); EOSINOPHILS PERCENT AUTO 0 % (0-6); Hematocrit 31.2 % (33.0-51.0); Hemoglobin 9.4 g/dL (11.5-16.0); IMMATURE GRAN ABSOLUTE AUTO 0.29 K/mm3 (0.00-0.10); IMMATURE GRAN PERCENT AUTO 1 % (0-1); LYMPHOCYTES ABSOLUTE AUTO 0.88 K/mm3 (0.84-5.20); LYMPHOCYTES PERCENT AUTO 4 % (21-46); MONOCYTES ABSOLUTE AUTO 1.54 K/mm3 (0.16-1.47); MONOCYTES PERCENT AUTO 7 % (4-13); Mean Corpuscular HGB Conc 30.1 g/dL (31.5-36.5); Mean Corpuscular Volume 100 fL (80-100); NEUTROPHILS ABSOLUTE AUTO 18.19 K/mm3 (1.96-9.15); NEUTROPHILS PERCENT AUTO 87 % (41-73); NRBC ABSOLUTE 0.03 K/mm3 (0.00-0.02); NRBC Auto 0.1 /100 WBC (0.0-0.2); Platelet Count 64 K/mm3 (150-400); RDW Coefficient Variation 18.8 % (11.7-14.2); RDW Standard Deviation 67.7 fL (35.1-46.3); Red Blood Cell Count 3.13 M/mm3 (3.80-5.20)
[2023-01-21 05:03] LABS: Mean Platelet Volume 13.4 fL (9.1-12.4)
[2023-01-21 05:11] LABS: Albumin, Blood 2.2 g/dL (3.4-5.0); Albumin/Globulin Ratio 0.5 (0.8-1.8); Bilirubin, Total 3.1 mg/dL (0.1-1.0); Bun/Creatinine Ratio 76.1 (12.0-20.0); Calcium, Blood 9.1 mg/dL (8.5-10.1); Creatinine, Blood 0.7 mg/dL (0.40-1.00); Globulin, Blood 4.3 g/dL (2.2-4.0); Magnesium, Blood 1.8 mg/dL (1.6-2.4); Potassium, Blood 3.8 mmol/L (3.5-5.5); Total Protein, Blood 6.5 g/dL (6.4-8.2)
--- NOTE | 2023-01-21 06:30 | NUR ---
ASSUMPTION OF CARE ASSUMED CARE OF PATIENT AT 0500. AGREE WITH PREVIOUS NURSE'S PHYSICAL ASSESSMENT. PATIENT REMAINS INTUBATED. OCCASIONALLY OPENS EYES SLIGHTLY, BUT DOES NOT TRACK. DOES NOT FOLLOW COMMANDS. VENTILATED; NO CHANGES TO SETTINGS. MONITOR SHOWING ST, HR 110S. NORMOTENSIVE. TF AT GOAL RATE. ASCITES NOTED. ADEQUATE URINE OUTPUT. REPOSITIONED. NO FURTHER CONCERNS.
--- NOTE | 2023-01-21 09:54 | NUR ---
AM SUMMARY... ASSUMED CARE OF PATIENT AT 0700 FROM NOC SHIFT. THE PT IS STILL INTUBATED AT THIS TIME AC/PC //45%. SHE HAS BEEN SATTING IN THE 90'S AND HER BP HAS BEEN STABLE. PT REMAINS TACHYCARDIC IN THE 110'S - 120'S. SHE CONTINUES TO OPEN HER EYES SPONTANEOUSLY, BUT DOES NOT TRACK OR FOLLOW COMMANDS. TUBE FEED IS RUNNING AT 50 ML/HR. TEMP LOUIS IN PLACE DRAINING TO GRAVITY. PT HAS NOT PASSES A BOWEL MOVEMENT SINCE HAVING HER RECTAL TUBE REMOVED YESTERDAY. WILL CONTINUE TO MONITOR. DR. BECKHAM ROUNDED ON THE PATIENT THIS MORNING AND HAS STARTED THE PATIENT ON VANCO AND FLUCONAZOLE. THE PATIENT IS SCHEDULED TO HAVE A PARACENTESIS TOMORROW.
--- NOTE | 2023-01-21 14:16 | NUR ---
PT UPDATE.... NO NEW CHANGES FROM AM RN STUDENT NOTE, THE PT'S ET TUBE WAS RESECURED BY RT. PT'S VS STABLE. SHE SEEMS TO BE TOLERATING THE VENT BETTER TODAY. WILL CONTINUE TO MONITOR.
--- NOTE | 2023-01-21 17:35 | NUR ---
SHIFT SUMMARY.... NO ACUTE NEGATIVE CHANGES NOTED THIS SHIFT. PT'S VS HAVE BEEN STABLE T/O THIS SHIFT. PT CONTINUES ON THE VENT WITH NO VENT CHANGES. PT HAS HAD 2 LOOSE PASTEY BMS THIS SHIFT. PT'S WAS AT THE BEDSIDE AND UPDATED WITH THE PT'S CONDITION AND PLAN OF CARE. PT'S TMAX THIS SHIFT WAS 100.0. WILL CONTINUE TO MONITOR UNTIL REPORT IS GIVEN TO ONCOMING RN.
--- NOTE | 2023-01-21 19:20 | NUR ---
ASSUMED CARE PATIENT ON VENT, NOT SEDATED. RESPONDS TO PAINFUL STIMULI. VSS NO FAMILY AT BEDSIDE. LOUIS TO GRAVITY
[2023-01-22] VITALS (23 sets, daily range): BP systolic 106–143; BP diastolic 67–104
[2023-01-22 04:11] LABS: BASOPHILS ABSOLUTE AUTO 0.03 K/mm3 (0.00-0.23); BASOPHILS PERCENT AUTO 0 % (0-2); EOSINOPHILS ABSOLUTE AUTO 0.02 K/mm3 (0.00-0.68); EOSINOPHILS PERCENT AUTO 0 % (0-6); Hematocrit 30.5 % (33.0-51.0); Hemoglobin 9.1 g/dL (11.5-16.0); IMMATURE GRAN PERCENT AUTO 2 % (0-1); LYMPHOCYTES PERCENT AUTO 3 % (21-46); MONOCYTES ABSOLUTE AUTO 1.36 K/mm3 (0.16-1.47); MONOCYTES PERCENT AUTO 6 % (4-13); Mean Corpuscular HGB 30.2 pg (26.0-34.0); Mean Corpuscular HGB Conc 29.8 g/dL (31.5-36.5); Mean Corpuscular Volume 101 fL (80-100); Mean Platelet Volume 12.7 fL (9.1-12.4); NEUTROPHILS ABSOLUTE AUTO 20.67 K/mm3 (1.96-9.15); NEUTROPHILS PERCENT AUTO 89 % (41-73); NRBC ABSOLUTE 0.04 K/mm3 (0.00-0.02); NRBC Auto 0.2 /100 WBC (0.0-0.2); Platelet Count 66 K/mm3 (150-400); RDW Coefficient Variation 19.2 % (11.7-14.2); RDW Standard Deviation 70.2 fL (35.1-46.3); Red Blood Cell Count 3.01 M/mm3 (3.80-5.20); White Blood Cell Count 23.28 K/mm3 (4.00-11.30)
[2023-01-22 04:17] LABS: International Normalized Ratio 2.24; Prothrombin Time Results 22.5 Sec (9.7-11.5)
[2023-01-22 04:32] LABS: Bun/Creatinine Ratio 69.2 (12.0-20.0); Creatinine, Blood 0.69 mg/dL (0.40-1.00); Magnesium, Blood 1.6 mg/dL (1.6-2.4); Phosphorus, Blood 3.4 mg/dL (2.5-4.9); Potassium, Blood 3.6 mmol/L (3.5-5.5)
--- NOTE | 2023-01-22 06:42 | NUR ---
SHIFT SUMMARY PATIENT VS STABLE. OPENS EYES SPONTANESOULY DOES NOT TRACK DOES NOT FOLLOW COMMANDS. EXTREMITY MOVES TO PAIN. ABD CONTINUES TO BE DISTENDED/FIRM. TUBE FEEDS AT GOAL WITH Q4 WATER FLUSHES. VENT AC/PC 15/10/45% TOLERATING WELL OCCASIONAL COUGH, SCANT SECRETIONS. LOUIS IN PLACE TO GRAVITY DRAIN, ADEQUATE OUTPUT.
--- NOTE | 2023-01-22 09:00 | NUR ---
AM UPDATE... ASSUMED CARE OF PT AT 0700. PT REMAINS INTUBATED AND IS RESTING IN BED. PT WAS ABLE TO RESPOND TO QUESTIONS THIS MORNING BY NODDING HER HEAD. SHE PASSED ONE LOOSE BM THIS AM. PT WAS SCHEDULED TO HAVE A PARACENTESIS TODAY, BUT THE IR-PA DECLINED DUE TO THE PT'S INR BEING >2. WAS NOTIFIED AND WILL EVALUATE THE PT. PT REMAINS TACHYCARDIC IN THE 110-120'S AND HAS BEEN NORMOTENSIVE. CURRENT VENT SETTINGS ARE AC/PC 15/18/10/45%. PT'S TUBE FEEDINGS WERE STOPPED BY NOC SHIFT THIS MORNING FOR PARACENTESIS. WILL CONTINUE TO MONITOR.
--- NOTE | 2023-01-22 09:13 | NUR ---
AM NOTE... ASSUMED CARE OF PT AT 0700. PT CONTINUES TO BE INTUBATED ON AC/PC AT 15/18/10/40% WITH O2 SATS >90%. PT WAS ABLE TO FOLLOW SIMPLE COMMANDS BY NODDING HER HEAD APPROPRIATELY TO QUESTIONS AND STATEMENTS MADE BY THIS RN AND OTHER STAFF. PT HAS BEEN VERY TEARFUL THIS AM. VS STABLE AT THIS TIME. PT WAS SCHEUDLED TO HAVE A PARACENTESIS TODAY BUT HER INR WAS >2, PROVIDER AWARE. WILL CONTINUE TO MONITOR.
--- NOTE | 2023-01-22 16:44 | NUR ---
Pt's spent time at the bedside today, he just left for the night. Pt is no longer on any pressers, and is requiring less oxygen on vent. Pt's states he is "feeling hope" again. He states he doesn't regret changing her code status to DNR. He did state today he would still not want to "bring her back" if her heart stopped. Will continue meeting with him.
--- NOTE | 2023-01-22 18:11 | NUR ---
SHIFT SUMMARY... PT HAS BEEN SATURATING IN THE 90'S AND REMAINS INTUBATED WITH NEW VENT SETTINGS OF AC/PC 15/8/40%. MINIMAL SPUTUM SUCTIONED. PT REMAINS TACHYCARDIC IN THE 110-120'S AND NORMOTENSIVE. SHE CONTINUES TO OPEN HER EYES SPONTANIOUSLY AND IS NOW ABLE TO SHAKE HER HEAD YES OR NO WHEN QUESTIONED. PT WAS ALSO NOTED TO SHOW MILD MOVEMENT IN HER EXTREMITIES. TEMP LOUIS HANGING TO GRAVITY DRAINING DARK YELLOW URINE. TUBE FEEDING IS NOW RUNNING AT 45 ML/HR. DR. CHISHOLM ROUNDED ON THE PT AND PLANS FOR THE PATIENT TO UNDERGO A PARACENTESIS TOMORROW AND TO BE EXTUBATED WITHIN THE NEXT 48 HOURS.
--- NOTE | 2023-01-22 18:14 | NUR ---
SHIFT SUMMARY.... NO ACUTE NEGATIVE CHANGES NOTED THIS SHIFT. THE PT'S VS HAVE BEEN STABLE. VENT SETTINGS HAVE CHANGED AND ARE CURRENTLY 15//8/40% WITH O2 SATS >90%. THE PT WAS MORE RESPOSIVE THIS SHIFT OPENING HER EYES, TRACKING MOVEMENT AND NODDING/SHAKING HER HEAD APPROPRIATELY TO SIMPLE QUESTIONS. SHE ALSO STARTED TO MOVE HER RIGHT ARM AND RIGHT LEG, MOVEMENT WAS WEAK BUT PURPOSEFUL. THE PT HAD 1 SOFT, UNFORMED BROWN BM THIS SHIFT. PT'S LOUIS IS PATENT AND DRAINING TO GRAVITY. PLAN IS FOR A POSSIBLE PARACENTESIS TOMORROW PER DR. CHISHOLM. WILL CONTINUE TO MONITOR UNTIL REPORT IS GIVEN TO ONCOMING RN.
--- NOTE | 2023-01-22 20:00 | NUR ---
ASSUMPTION OF CARE PT RESPONDS TO VERBAL STIMULI, FOLLOWS SIMPLE COMMANDS AND CAN ANSWER SIMPLE YES/NO QUESTIONS BY NODDING HER HEAD APPROPRIATLY. SHE IS INTUBATED VIA ETT, INTACT AND PATENT TO VENTILATOR W/OXYGEN SAT >90%, NO S/S OF ACUTE RESP DISTRESS NOTED AT THIS TIME. PT IS ST ON THE DIGITAL RECRUITER W/RATE IN THE 100S, BP WNL W/MAP >65. TF INFUSING VIA OROGASTRIC TUBE AT GOAL, PT TOLERATING WELL AT THIS TIME. ABDOMEN IS DISTENDED, POSSIBLE PARACENTESIS TOMORROW. LOUIS CATH INTACT PATENT AND DRAINING YELLOW URINE.
[2023-01-22 20:54] LABS: Vancomycin, Trough 22.4 ug/mL (5.0-10.0)
[2023-01-23] VITALS (23 sets, daily range): BP systolic 102–137; BP diastolic 62–106
[2023-01-23 04:41] LABS: BASOPHILS ABSOLUTE AUTO 0.02 K/mm3 (0.00-0.23); BASOPHILS PERCENT AUTO 0 % (0-2); EOSINOPHILS ABSOLUTE AUTO 0.38 K/mm3 (0.00-0.68); EOSINOPHILS PERCENT AUTO 2 % (0-6); Hematocrit 30.7 % (33.0-51.0); Hemoglobin 9.3 g/dL (11.5-16.0); IMMATURE GRAN ABSOLUTE AUTO 0.42 K/mm3 (0.00-0.10); IMMATURE GRAN PERCENT AUTO 2 % (0-1); LYMPHOCYTES ABSOLUTE AUTO 1.12 K/mm3 (0.84-5.20); LYMPHOCYTES PERCENT AUTO 5 % (21-46); MONOCYTES ABSOLUTE AUTO 2.07 K/mm3 (0.16-1.47); MONOCYTES PERCENT AUTO 9 % (4-13); Mean Corpuscular HGB 30.7 pg (26.0-34.0); Mean Corpuscular HGB Conc 30.3 g/dL (31.5-36.5); Mean Corpuscular Volume 101 fL (80-100); Mean Platelet Volume 12.9 fL (9.1-12.4); NEUTROPHILS ABSOLUTE AUTO 20.23 K/mm3 (1.96-9.15); NEUTROPHILS PERCENT AUTO 84 % (41-73); NRBC ABSOLUTE 0.04 K/mm3 (0.00-0.02); NRBC Auto 0.2 /100 WBC (0.0-0.2); Platelet Count 79 K/mm3 (150-400); RDW Coefficient Variation 20.1 % (11.7-14.2); RDW Standard Deviation 68.9 fL (35.1-46.3); Red Blood Cell Count 3.03 M/mm3 (3.80-5.20); White Blood Cell Count 24.24 K/mm3 (4.00-11.30)
[2023-01-23 05:02] LABS: International Normalized Ratio 1.93; Prothrombin Time Results 19.5 Sec (9.7-11.5)
[2023-01-23 05:06] LABS: Magnesium, Blood 1.6 mg/dL (1.6-2.4)
[2023-01-23 05:09] LABS: Albumin, Blood 2.2 g/dL (3.4-5.0); Albumin/Globulin Ratio 0.5 (0.8-1.8); Bilirubin, Total 3.1 mg/dL (0.1-1.0); Bun/Creatinine Ratio 68.1 (12.0-20.0); Creatinine, Blood 0.69 mg/dL (0.40-1.00); Globulin, Blood 4.3 g/dL (2.2-4.0); Phosphorus, Blood 3.4 mg/dL (2.5-4.9); Potassium, Blood 3.7 mmol/L (3.5-5.5); Total Protein, Blood 6.5 g/dL (6.4-8.2)
--- NOTE | 2023-01-23 06:30 | NUR ---
SHIFT CHEPE PT CONTINUES TO BE INTUBATED VIA ETT. SHE HAS BEEN ST IN THE 100S ON THE INTERACTIVE MEDIA DIRECTOR. BP WNL, AFEBRILE. SHE IS FOLLOWING SIMPLE COMMANDS AND ABLE TO NOD YES/NO TO SIMPLE QUESTIONS. OXYGEN SAT REMAINED >90% W/NO CHANGES IN VENT SETTINGS REQUIRED. ADEQUATE URINE OP VIA LOUIS CATH. TF AT GOAL, TOLERATING WELL. NO ACUTE CHANGES OVERNIGHT.
--- NOTE | 2023-01-23 08:36 | NUR ---
ASSUMED CARE REPORT FROM MIRANDA/MIKE RN AT 0700. PT INTUBATED. DR CHISHOLM ROUNDED. CHANGED VENT SETTINGS TO SPONT 12/5/40%, TV 500'S. LUNGS COARSE, SMALL THIN YELLOW/CLEAR SECRETIONS FROM ETT. COUGH/GAG REFLEX NOTED. PT OPENS EYES TO COMMAND, SQUEEZES HANDS, WIGGLES TOES ON COMMAND. NO SEDATION. FENTANYL PRN FOR PAIN. ST, RATE 100-110 ON MONITOR. ABD DISTENDED, FIRM, HYPOACTIVE BT. TUBE FEEDS AT GOAL. LOUIS PATENT, DRAINING CLEAR YELLOW TO GRAVITY. DISCUSSED LOUIS c DR CHISHOLM, WILL REMAIN FOR I&O'S. PLAN FOR PARACENTESIS AT 1400. WILL CONTINUE TO MONITOR.
[2023-01-23 15:56] LABS: Automated BF WBC Count 0.018 K/mm3 (0-999)
[2023-01-23 16:03] LABS: Body Fluid WBC Count 18 /mm3 (0-999)
[2023-01-23 16:21] LABS: RBC Count, Body Fluid 20 /mm3 (0-0)
--- NOTE | 2023-01-23 17:21 | NUR ---
SHIFT SUMMARY PT REMAINS INTUBATED, HAS BEEN ON SPONT 09/18/40% c TV MID-500MLS SINCE 0840 THIS AM. LUNGS CLEAR, OCCASIONALLY COARSE, IMPROVES c SUCTIONING. THIN CLEAR SEC FROM ETT. COUGH/GAG REFLEX. FOLLOWS COMMANDS. NODS HEAD TO YES/NO QUESTIONS. ST, RATE 100-120'S. BP STABLE. MEDICATED c FENTANYL PRN FOR PAIN. ABD ROUND, DISTENDED, HYPOACTIVE BT X 4. TUBE FEEDS AT GOAL. PARACENTESIS COMPLETE THIS SHIFT, 4.9L OFF. SENT TO LAB. MISSY PATENT, DRAINED 1500ML OUT. WILL CONTINUE TO MONITOR UNTIL REPORT TO ONCOMING NURSE.
[2023-01-23 18:57] LABS: Color, Body Fluid L Yellow (None-Yellow); Total Cell Count, Body Fluid 100
[2023-01-23 18:58] LABS: Appearance, Body Fluid Clear (Clear)
[2023-01-24] VITALS (20 sets, daily range): BP systolic 113–141; BP diastolic 86–100
[2023-01-24 04:34] LABS: BASOPHILS ABSOLUTE AUTO 0.02 K/mm3 (0.00-0.23); BASOPHILS PERCENT AUTO 0 % (0-2); EOSINOPHILS ABSOLUTE AUTO 0.45 K/mm3 (0.00-0.68); EOSINOPHILS PERCENT AUTO 2 % (0-6); Hemoglobin 9.2 g/dL (11.5-16.0); IMMATURE GRAN ABSOLUTE AUTO 0.29 K/mm3 (0.00-0.10); IMMATURE GRAN PERCENT AUTO 1 % (0-1); LYMPHOCYTES ABSOLUTE AUTO 0.72 K/mm3 (0.84-5.20); LYMPHOCYTES PERCENT AUTO 4 % (21-46); MONOCYTES ABSOLUTE AUTO 1.34 K/mm3 (0.16-1.47); MONOCYTES PERCENT AUTO 6 % (4-13); Mean Corpuscular HGB 31.1 pg (26.0-34.0); Mean Corpuscular HGB Conc 30.7 g/dL (31.5-36.5); Mean Corpuscular Volume 101 fL (80-100); Mean Platelet Volume 12.6 fL (9.1-12.4); NEUTROPHILS ABSOLUTE AUTO 18.01 K/mm3 (1.96-9.15); NEUTROPHILS PERCENT AUTO 86 % (41-73); Platelet Count 69 K/mm3 (150-400); RDW Coefficient Variation 21.1 % (11.7-14.2); RDW Standard Deviation 69.3 fL (35.1-46.3); Red Blood Cell Count 2.96 M/mm3 (3.80-5.20); White Blood Cell Count 20.83 K/mm3 (4.00-11.30)
[2023-01-24 04:49] LABS: International Normalized Ratio 2.04; Prothrombin Time Results 20.6 Sec (9.7-11.5)
[2023-01-24 04:55] LABS: Bun/Creatinine Ratio 71.2 (12.0-20.0); Calcium, Blood 8.7 mg/dL (8.5-10.1); Creatinine, Blood 0.6 mg/dL (0.40-1.00); Magnesium, Blood 1.8 mg/dL (1.6-2.4); Phosphorus, Blood 2.6 mg/dL (2.5-4.9); Potassium, Blood 3.5 mmol/L (3.5-5.5)
--- NOTE | 2023-01-24 06:00 | NUR ---
SHIFT SUMMERY UNEVENTFUL SHIFT, NO ACUTE CHANGES
--- NOTE | 2023-01-24 07:41 | NUR ---
Assumed care at approximately 0700. Pt resting in bed, ventilated via ETT. Vent settings: Spont 12/5, 40%. OG tube in place, TF at goal rate, 45 ml/hr. PICC ANAID, NS tko x2. Ryan cath in place, draining to gravity. SWB restraints in place. VS stable, continue to monitor.
[2023-01-24 08:20] LABS: Vancomycin, Trough 18.4 ug/mL (5.0-10.0)
--- NOTE | 2023-01-24 09:43 | NUR ---
Pt extubated at approximately 0830, OG and ETT tube removed. See RT notes. Pt tolerated extubation well, sats >93% on 3 L/min 02 via NC.
--- NOTE | 2023-01-24 17:17 | NUR ---
Review of patient in rounds and with bed side nurse. Will follow up with hermelindo and the therapies to help formulate fci plan for pt. She is till very fraile and will need extensive care. Will review with chaplian husbands needed support.
--- NOTE | 2023-01-24 18:38 | NUR ---
Shift summary. Pt resting in bed, on 02 via NC, extubated this morning at 0830 with good results. Pt alert, following commands, able to communicate needs. Pt too weak to press call light, very hoarse and hard to understand. PT/OT/SP ordered, speech therapy to see her in the am, PT/OT evals completed. Ryan catheter DC'd this afternoon. NS TKO infusing. See assessment/notes for further details. Will continue to monitor and report off to freya WHEELER.
--- NOTE | 2023-01-24 20:59 | NUR ---
ASSUMED CARE. PT AWAKE WATCHING TV. ATTEMPTS TO TALK, IS ABLE TO GET OUT SOME ANSWERS. VOICE IS SOFT AND DIFFICULT TO UNDERSTAND AT TIME. FOLLOWS DIRECTIONS. DENIES PAIN OR DISCOMFORT OTHER THEN WHEN CLEANED OF A BOWEL MOVEMENT. SHE HAS SMALL OPEN ULCER AT THE BOTTOM OF HER VAGINAL AREA. LINEN CHANGED, BARRIER CREAM AND LOTION APPLIED TO SKIN, POWDER TO GROIN. ORAL CARE WITH MOUTH SWABS. REPOSITIONED.
--- NOTE | 2023-01-24 22:38 | NUR ---
WOUND PIC IN CHART.
[2023-01-25] VITALS (23 sets, daily range): BP systolic 109–139; BP diastolic 77–108
[2023-01-25 05:22] LABS: BASOPHILS ABSOLUTE AUTO 0.02 K/mm3 (0.00-0.23); BASOPHILS PERCENT AUTO 0 % (0-2); EOSINOPHILS PERCENT AUTO 1 % (0-6); Hematocrit 31.5 % (33.0-51.0); Hemoglobin 9.4 g/dL (11.5-16.0); IMMATURE GRAN ABSOLUTE AUTO 0.15 K/mm3 (0.00-0.10); IMMATURE GRAN PERCENT AUTO 1 % (0-1); LYMPHOCYTES ABSOLUTE AUTO 0.66 K/mm3 (0.84-5.20); LYMPHOCYTES PERCENT AUTO 4 % (21-46); MONOCYTES ABSOLUTE AUTO 0.93 K/mm3 (0.16-1.47); MONOCYTES PERCENT AUTO 6 % (4-13); Mean Corpuscular HGB 30.3 pg (26.0-34.0); Mean Corpuscular HGB Conc 29.8 g/dL (31.5-36.5); Mean Corpuscular Volume 102 fL (80-100); NEUTROPHILS ABSOLUTE AUTO 14.88 K/mm3 (1.96-9.15); NEUTROPHILS PERCENT AUTO 88 % (41-73); Platelet Count 61 K/mm3 (150-400); RDW Coefficient Variation 21.5 % (11.7-14.2); White Blood Cell Count 16.84 K/mm3 (4.00-11.30)
[2023-01-25 05:42] LABS: Bun/Creatinine Ratio 70.9 (12.0-20.0); Calcium, Blood 9.1 mg/dL (8.5-10.1); Creatinine, Blood 0.62 mg/dL (0.40-1.00); Potassium, Blood 3.5 mmol/L (3.5-5.5)
--- NOTE | 2023-01-25 05:49 | NUR ---
PT IS AOX2, MILD DISORIENTATION OF DATE AND TIME. FOLLOWS DIRECTIONS. VOICE IS GETTING STRONGER AND EASIER TO UNDERSTAND. CONTINUES TO MAINTAIN SATS ON 3L NC. OCCATIONAL COUGH. LUNGS WITH FINE CRACKLES TO THE RIGHT SIDE. SINUS TO SINUS TACH WITH RATE TO 110, BP STABLE. ABD DISTENDED WITH HYPERACTIVE BT. MULTIPLE LOOSE STOOLS THIS SHIFT, ALMOST EVERY 2 HOURS. INCONTIENT OF URINE. NEW WOUND NOTED AND DOCUMENTED SEE CHART FOR DETAILS. CONTINUES TO BE VERY WEAK BUT IS IMPROVING SLOWLY.
--- NOTE | 2023-01-25 10:08 | NUR ---
Assumed care of pt at 0700. Report received from Laura WHEELER. Pt A&O x 2. Answers questions, follows commands, verbalizes needs- although voice is soft and sometimes difficult to understand. Pleasant and cooperative with care. SpO2 90% or greater with 3 LPM NC. 2 incontinent voids of urine so far, purewick placed. Groin and sacrum have inflammed red, peeling skin. Barrier cream applied. CHG bath given and lotion applied afterwards. Pt lifted to recliner. Dental hygenist in to see patient. ST in to see patient- pt to remain NPO until tomorrow.
--- NOTE | 2023-01-25 17:09 | NUR ---
SUMMARY Neuro: A&O x 2. Answers questions, follows commands, verbalizes needs although voice is often incomprehensible as pt is weak and speaks softly. Pleasant and cooperative with care. PERRL. Musc: Moves all extremities with equal strength and range of motion. Worked with PT/OT today. Sat in recliner for 6 hours. Does not help with her ADLs, currently. Resp: Lungs clear, dim in bases. SpO2 90% or greater 2 LPM NC. Weak, nonproductive cough. GI: Normal BT. Abd moderately distended, this is an increase from beginning of shift. Strict NPO after assessment by ST. : Purewick placed to manage urinary incontinence. Skin: CHG bath complete. Barrier cream, lotion, antifungal powder for skin care as indicated. Psych: Flat affect but overall calm and cooperative. Family: Updated by this RN.
--- NOTE | 2023-01-25 20:00 | NUR ---
ASSUMED CARE. PT AOX2, SOFT SPOKEN BUT HER COMMUNICATION IS GETTING CLEARER. DENIES PAIN. LUNGS CLEAR, ON 3L NC, MAINTAINING SATS. NO COUGH NOTED AT THIS TIME. TKO INFUSING. PERIWICK IN PLACE AND HOOKED TO SUCTION. RE-POSITIONED. BARRIER CREAM ON BOTTOM AND GROIN. ATTENDS DRY. REPOSITIONED PILLOWS. TV TURNED ON FOR PATIENT. SHE WAS ASKING FOR FOOD, REMINDED HER OF NPO STATUS AND THAT SHE FAILED SWALLOW EVAL. EDUCATION PROVIDED. ORAL CARE COMPLETED.
[2023-01-26] VITALS (8 sets, daily range): BP systolic 121–139; BP diastolic 86–95
--- NOTE | 2023-01-26 01:10 | NUR ---
REVIEWED PT'S INFORMATION R/T POSSIBILITY OF TRANSFER
--- NOTE | 2023-01-26 03:56 | NUR ---
REPORT GIVEN TO GABRIELLA WHEELER FOR TRANSFER TO U 11.
[2023-01-26 03:58] LABS: BASOPHILS ABSOLUTE AUTO 0.01 K/mm3 (0.00-0.23); BASOPHILS PERCENT AUTO 0 % (0-2); EOSINOPHILS ABSOLUTE AUTO 0.14 K/mm3 (0.00-0.68); EOSINOPHILS PERCENT AUTO 1 % (0-6); Hematocrit 31.8 % (33.0-51.0); Hemoglobin 9.6 g/dL (11.5-16.0); IMMATURE GRAN ABSOLUTE AUTO 0.08 K/mm3 (0.00-0.10); IMMATURE GRAN PERCENT AUTO 1 % (0-1); LYMPHOCYTES ABSOLUTE AUTO 0.67 K/mm3 (0.84-5.20); LYMPHOCYTES PERCENT AUTO 5 % (21-46); MONOCYTES ABSOLUTE AUTO 0.58 K/mm3 (0.16-1.47); MONOCYTES PERCENT AUTO 4 % (4-13); Mean Corpuscular HGB 30.8 pg (26.0-34.0); Mean Corpuscular HGB Conc 30.2 g/dL (31.5-36.5); Mean Corpuscular Volume 102 fL (80-100); NEUTROPHILS ABSOLUTE AUTO 12.45 K/mm3 (1.96-9.15); NEUTROPHILS PERCENT AUTO 89 % (41-73); Platelet Count 57 K/mm3 (150-400); RDW Coefficient Variation 21.8 % (11.7-14.2); Red Blood Cell Count 3.12 M/mm3 (3.80-5.20); White Blood Cell Count 13.93 K/mm3 (4.00-11.30)
[2023-01-26 04:06] LABS: Mean Platelet Volume 12.7 fL (9.1-12.4)
[2023-01-26 04:19] LABS: Calcium, Blood 9.1 mg/dL (8.5-10.1); Creatinine, Blood 0.65 mg/dL (0.40-1.00); Magnesium, Blood 1.9 mg/dL (1.6-2.4); Phosphorus, Blood 3.5 mg/dL (2.5-4.9); Potassium, Blood 3.4 mmol/L (3.5-5.5)
--- NOTE | 2023-01-26 04:43 | NUR ---
TRANSFER NOTE THIS RN RECEIVED REPORT FROM CHRIS WHEELER IN THE ICU. THIS RN ASSUMED CARE OF PATIENT AT 0355 WHEN PT WAS TRANSFERRED TO PCU 11. PATIENT ALERT AND ORIENTED X3, CONFUSED ABOUT THE SPECIFIC DATE BUT DOES KNOW THE TIME. SOFT SPOKEN BUT ANSWERING QUESTIONS APPROPRIATELY. BP STABLE. ST ON MONITOR WITH HR 100'S. AFEBRILE. SPO2 >92% ON 1L O2 VIA NC. LS CLEAR/DIM T/O. BS+. PPP, FAINT PEDAL PULSES NOTED. ORAL DONE AFTER ARRIVAL. ATTENDS AND PUREWICK CHANGED AND DRY. MEPILEX TO COCCYX AND BILAT HEELS. SCD'S IN PLACE. PATIENT VERBALIZED COMFORT. BED IN LOWEST POSITION AND CALL LIGHT WITHIN REACH. THIS RN WILL CONTINUE TO MONITOR UNTIL SHIFT CHANGE AT 0700.
--- NOTE | 2023-01-26 13:16 | NUR ---
PT A&OX3, PERSON, PLACE, SITUATION, AND . PT CALM AND COOPERATIVE WITH CARE. PT SOFT SPOKEN AND HARD TO UNDERSTAND AT TIMES. PT SOB PERIODICALLY, ON 1L O2 MAINTAINING >94%. LUNG SOUNDS CLEAR YET DIMINISHED MIDS AND BASES. HR SR/ST 100-110, PT DENIES CHEST PAIN/PRESSURE, STR AND EQUAL RADIAL AND PEDAL PULSES. BOWEL TONES PRESENT ALL 4 QUADRANTS. ROM DIMINISHED/WEAK IN UPPER LIMBS, SLIGHTLY STRONGER IN LOWER LIMBS BUT STILL WEAK. PT'S SKIN & EYES ARE JAUNDICE. PT HAS PICC LINE R UPPER ARM. PT FAILED SPEECH EVAL THIS MORNING, AND KASIE PLACED AROUND 1300 PER ORDERS. WAITING ON XRAY TO CONFIRM PLACEMENT. PT RESTING IN FOWLERS WITH SOFT TOUCH CALL LIGHT WITHIN REACH.
--- NOTE | 2023-01-26 13:52 | NUR ---
CHEST XRAY COMPLETED TO CONFIRM DOBHOFF PLACEMENT. THIS RN CALLED IMAGING TO ASK IF WE NEEDED TO ADVANCE DOBHOFF. RADIOLOGIST DR. BLAIR RECOMMENDED 10CM ADVANCEMENT. DOBHOFF ADVANCED.
--- NOTE | 2023-01-26 14:31 | NUR ---
DOBHOFF TUBING ADVANCED TO A TOTAL OF 60CM. TN RUNNING AT RATE OF 25ML/HR PER ORDERS.
--- NOTE | 2023-01-26 15:37 | NUR ---
PT VISITING WITH FAMILY. RE-POSITIONED, CHANGED ATTENDS, & TRACEE CARE. VITALS STABLE.
--- NOTE | 2023-01-26 16:22 | NUR ---
MORNING MEDS GIVEN VIA DOBHOFF & PROBIOTIC HELD PER O'ESTEBAN. TUBE FLUSHED WITH 30CC BEFORE ADMINISTRATION AND 90CC AFTER ADMINISTRATION.
--- NOTE | 2023-01-26 18:38 | NUR ---
SHIFT SUMMARY: NO ACUTE CHANGES, CHECK PREVIOUS NOTES. VITALS STABLE. TUBE FEEDING & TKO FLUIDS RUNNING PER ORDERS. PT REPOSITIONED AND VISITING WITH FAMILY IN ROOM.
[2023-01-27 00:10] VITALS: BP 124/84
[2023-01-27 03:34] VITALS: BP 124/81
[2023-01-27 03:45] LABS: BASOPHILS ABSOLUTE AUTO 0.01 K/mm3 (0.00-0.23); BASOPHILS PERCENT AUTO 0 % (0-2); EOSINOPHILS ABSOLUTE AUTO 0.42 K/mm3 (0.00-0.68); EOSINOPHILS PERCENT AUTO 4 % (0-6); Hematocrit 29.6 % (33.0-51.0); Hemoglobin 8.8 g/dL (11.5-16.0); IMMATURE GRAN ABSOLUTE AUTO 0.05 K/mm3 (0.00-0.10); IMMATURE GRAN PERCENT AUTO 0 % (0-1); LYMPHOCYTES ABSOLUTE AUTO 0.63 K/mm3 (0.84-5.20); LYMPHOCYTES PERCENT AUTO 5 % (21-46); MONOCYTES ABSOLUTE AUTO 0.68 K/mm3 (0.16-1.47); MONOCYTES PERCENT AUTO 6 % (4-13); Mean Corpuscular HGB 30.7 pg (26.0-34.0); Mean Corpuscular HGB Conc 29.7 g/dL (31.5-36.5); Mean Corpuscular Volume 103 fL (80-100); NEUTROPHILS PERCENT AUTO 85 % (41-73); Platelet Count 51 K/mm3 (150-400); RDW Coefficient Variation 21.6 % (11.7-14.2); Red Blood Cell Count 2.87 M/mm3 (3.80-5.20); White Blood Cell Count 12.09 K/mm3 (4.00-11.30)
[2023-01-27 04:01] LABS: Bun/Creatinine Ratio 84.6 (12.0-20.0); Calcium, Blood 8.8 mg/dL (8.5-10.1); Creatinine, Blood 0.6 mg/dL (0.40-1.00); Magnesium, Blood 1.8 mg/dL (1.6-2.4); Phosphorus, Blood 2.7 mg/dL (2.5-4.9); Potassium, Blood 3.1 mmol/L (3.5-5.5)
--- NOTE | 2023-01-27 06:22 | NUR ---
[facility] SUMMARY ASSUMED CARE OF THE PT AT 1900. SHE IS ALERT AND ORIENTED X3, THOUGH DIFFICULT TO UNDERSTAND DUE TO SOFT VOICE. PT IS WEAK THROUGHOUT SO REQUIRES FULL CARE. PUREWICK IN PLACE WITH GOLD YELLOW URINE. PT WAS GIVEN CHG BATH TONIGHT AND FELT IMPROVED. SHE COMPLAINED OF FEELING "HOT" BUT HAD A LOW TEMP THAT IMPROVED WITH BLANKETS AND TURNING THE HEAT UP. NO COMPLAINTS OF PAIN THIS SHIFT. SHE HAS BEEN SINUS TO SINUS TACH ON TELE WITH NO CHEST PAIN. OXYGEN SATURATIONS HAVE BEEN MID TO HIGH 90S ON 1L BY NC. SHE DID REQUIRE ONE BREATHING TX BUT FELT IMPROVED.
[2023-01-27 07:29] VITALS: BP 124/84
--- NOTE | 2023-01-27 09:38 | NUR ---
AM NOTE: PT SLEEPING WHEN I ENTERED THE ROOM. SHE IS ALERT AND ORIENTED TO SELF, PLACE, SITUATION, AND FAMILY. CALMP AND COOPERATIVE WITH CARE. PT HAD SMALL-MEDIUM, SOFT/STICKY, BROWN/GREEN COLORED STOOL. ATTENDS, MEPLIX DRESSING, AND PUREWICK CHANGED. SILICONE CREAM APPLIED TO TRACEE AREA. COCCYX IS RED BUT BLANCHABLE. TRACEE AREA IS RED. LOTION APPLIED TO EXTREMITIES. WARM WASHCLOTH ON FACE. ORAL CARE PERFORMED AND LIP MOISTURIZER APPLIED. MORNING MEDS GIVEN. REFILLED WATER 100ML FOR TUBE FEEDING. VITALS STABLE. FAILED SPEECH AGAIN, SPEECH THERAPIST STATED PT SLOWLY GETTING BETTER. PT IN BED VISITING WITH FAMILY. CALL LIGHT WITHIN REACH.
[2023-01-27 11:51] VITALS: BP 105/75
--- NOTE | 2023-01-27 11:58 | NUR ---
PT HAD 3RD BOWEL MOVEMENT OF THE DAY. SMALL, BROWN, LOOSE/STICKY. MEPLIX CHANGED AND BARRIER CREAM APPLIED. REPOSITIONED, HOB ELEVATED, LEGS ELEVATED, ARMS RESTING ON PILLOWS. NOON VITALS TAKEN AND STABLE. PT JUST FINISHED WITH PHYSICAL THERAPY. PT RESTING IN BED.
--- NOTE | 2023-01-27 12:32 | NUR ---
PTS HEEL PROTECTIVE BANDAGES CHANGED ON BOTH HEELS.
--- NOTE | 2023-01-27 12:51 | NUR ---
TUBE FEEDING RATE WAS INCREASED TO 45ML/HR AT NOON PER ORDERS.
--- NOTE | 2023-01-27 14:27 | NUR ---
PT HAD A SMALL, BROWN, LOOSE, STICKY STOOL. ATTENDS CHANGED. MEPLIX & PURWICK CHANGED, BARRIER CREAM USED. CHG BATH COMPLETED. ORAL CARE PERFORMED. REPOSITIONED. PT VISITING WITH FAMILY/FRIEND.
[2023-01-27 15:38] VITALS: BP 134/82
--- NOTE | 2023-01-27 16:13 | NUR ---
NORMAL SALINE DISCONTINUED AND 1/2 NORMAL ORDERED. 1/2 NORMAL SALINE RUNNING TKO ALONG WITH NIGHT ABO AND POTASSIUM. PT WAS STATUS CHANGED BUT BED NOT AVAILABLE ON MEDICAL YET. NEED A LIFT ROOM. PT RESTING IN BED. VITALS STABLE.
--- NOTE | 2023-01-27 18:01 | NUR ---
TRANSFER NOTE: NO ACUTE CHANGES TO PT. SEE PREVIOUS NOTES. TRANSFERRED PT TO MEDICAL, SALES REPRESENTATIVE FACILITY SERVICES AWARE. GAVE REPORT TO TIFFANY ON THE MEDICAL FLOOR. PONCHO NOTIFIED OF TRANSFER.
--- NOTE | 2023-01-27 18:04 | NUR ---
THIS RN HAS REVIEWED AND AGREES WITH ALL STUDENT NURSING DOCUMENTATION
[2023-01-27 20:20] VITALS: BP 119/77
--- NOTE | 2023-01-28 04:24 | NUR ---
SHIFT SUMMARY; NO ACUTE CHANGES OVERNIGHT. THE PT HAS BEEN AWAKE MOST OF THE NIGHT. THE PT BECOMES FRUSTURATED WITH STAFF NOT UNDERSTANDING HER R/T HER BEING SO SOFT SPOKEN. THE PT IS AXO X3-4, SOMEWHAT DIFFICULT TO ASSESS DUE TO COMMUNICATION BARRIERS. THE PT HAS A DOBHOFF IN PLACE WITH CONTINOUS FEEDS AT 45MLS/HR. THE PT ALSO HAS 1/2 NS RUNNING KVO THROUGH HER PICC LINE. THE PT HAS A PUREWICK IN PLACE DUE TO BEING INCONTINENT AND IMMOBILE. THE PT IS Q2 TURNS AND Q2 ORAL CARE. TELE IS IN PLACE, THE PT HAS BEEN SINUS/SINUS TACH 80-100'S. THE PT DENIES ANY SOB, PAIN, CHEST PAIN/PRESSURE OR N/V. CURRENTLY THE PT IS SITTING UP IN BED WATCHING TV WITH THE BED IN THE LOWEST POSITION AND THE CALL LIGHT AT BEDSIDE.
[2023-01-28 04:35] VITALS: BP 124/82
[2023-01-28 05:06] LABS: BASOPHILS PERCENT AUTO 0 % (0-2); EOSINOPHILS ABSOLUTE AUTO 0.69 K/mm3 (0.00-0.68); EOSINOPHILS PERCENT AUTO 6 % (0-6); Hematocrit 29.7 % (33.0-51.0); Hemoglobin 8.9 g/dL (11.5-16.0); IMMATURE GRAN ABSOLUTE AUTO 0.06 K/mm3 (0.00-0.10); IMMATURE GRAN PERCENT AUTO 1 % (0-1); LYMPHOCYTES ABSOLUTE AUTO 0.66 K/mm3 (0.84-5.20); LYMPHOCYTES PERCENT AUTO 6 % (21-46); MONOCYTES PERCENT AUTO 5 % (4-13); Mean Corpuscular HGB 30.9 pg (26.0-34.0); Mean Corpuscular Volume 103 fL (80-100); NEUTROPHILS ABSOLUTE AUTO 9.26 K/mm3 (1.96-9.15); NEUTROPHILS PERCENT AUTO 82 % (41-73); RDW Coefficient Variation 21.6 % (11.7-14.2); RDW Standard Deviation 79.8 fL (35.1-46.3); Red Blood Cell Count 2.88 M/mm3 (3.80-5.20); White Blood Cell Count 11.27 K/mm3 (4.00-11.30)
[2023-01-28 05:20] LABS: Platelet Count 44 K/mm3 (150-400)
[2023-01-28 05:45] LABS: Albumin, Blood 1.9 g/dL (3.4-5.0); Anion Gap 1 mmol/L (6-16); Blood Urea Nitrogen 46 mg/dL (8-24); Bun/Creatinine Ratio 81.9 (12.0-20.0); CO2, Blood 28 mmol/L (21-32); Chloride, Blood 119 mmol/L (98-108); Creatinine, Blood 0.56 mg/dL (0.40-1.00); Glomerular Filtration Rate 108 (60-); Glucose, Blood 121 mg/dL (70-99); Magnesium, Blood 1.8 mg/dL (1.6-2.4); Phosphorus, Blood 2.6 mg/dL (2.5-4.9); Potassium, Blood 3.5 mmol/L (3.5-5.5); Sodium, Blood 148 mmol/L (136-145)
[2023-01-28 08:01] VITALS: BP 130/95
[2023-01-28 15:09] VITALS: BP 119/80
--- NOTE | 2023-01-28 17:32 | NUR ---
SHIFT SUMMARY PATIENT IS ALERT AND ORIENTED X3. PATIENT HAS HAD NO ACUTE EVENTS THIS SHIFT. PATIENT HAS BEEN RESTING OFF AND ON THIS SHIFT. PATIENTS FAMILY HAS VISITED FOR AWHILE TODAY. CONT TUBE FEEDS AT GOAL RATE OF 45/HR ALL SHIFT. PATIENT HAS A PUREWICK WHICH WORKS WELL. PATIENT HAS BEEN TURNED Q2 AND ORAL CARE DONE ON SCHEDULE. PATIENT HAS HAD NO EVENTS ON TELE. BED IN LOCKED AND LOWEST POSITION. CALL LIGHT IN PLACE. WILL MONITOR UNTIL SHIFT CHANGE.
[2023-01-28 20:32] VITALS: BP 129/91
[2023-01-29 04:32] VITALS: BP 126/95
[2023-01-29 05:06] LABS: BASOPHILS ABSOLUTE AUTO 0.02 K/mm3 (0.00-0.23); BASOPHILS PERCENT AUTO 0 % (0-2); EOSINOPHILS ABSOLUTE AUTO 0.86 K/mm3 (0.00-0.68); EOSINOPHILS PERCENT AUTO 7 % (0-6); Hematocrit 30.4 % (33.0-51.0); Hemoglobin 9.3 g/dL (11.5-16.0); IMMATURE GRAN ABSOLUTE AUTO 0.07 K/mm3 (0.00-0.10); IMMATURE GRAN PERCENT AUTO 1 % (0-1); LYMPHOCYTES ABSOLUTE AUTO 0.92 K/mm3 (0.84-5.20); LYMPHOCYTES PERCENT AUTO 8 % (21-46); MONOCYTES PERCENT AUTO 5 % (4-13); Mean Corpuscular HGB 31.2 pg (26.0-34.0); Mean Corpuscular HGB Conc 30.6 g/dL (31.5-36.5); Mean Corpuscular Volume 102 fL (80-100); NEUTROPHILS ABSOLUTE AUTO 9.49 K/mm3 (1.96-9.15); NEUTROPHILS PERCENT AUTO 79 % (41-73); RDW Coefficient Variation 21.7 % (11.7-14.2); RDW Standard Deviation 78.9 fL (35.1-46.3); Red Blood Cell Count 2.98 M/mm3 (3.80-5.20); White Blood Cell Count 11.96 K/mm3 (4.00-11.30)
--- NOTE | 2023-01-29 05:29 | NUR ---
SHIFT SUMMARY; NO ACUTE CHANGES OVERNIGHT. THE PT IS AXO X3, DIFFICULT TO UNDERSTAND R/T TO HER SOFT SPOKEN SPEECH. THE PT REPORTED SOME PAIN IN HER TAILBONE THIS AM DESPITE Q2 TURNS, I MEDICATED THE PT PER THE EMAR FOR PAIN. THE PT HAS RECIEVED Q2 TURNS Q2 ORAL CARE THIS SHIFT. CHG BATH IS DONE, MEPILEX ON THE PTS COCCYX IS CHANGED. THE PT HAS A PUREWICK IN PLACE RELATED TO PROLONGED IMMOBILITY. THE PTS DOBHOFF REMAINS IN PLACE WITH CONTNOUS FEEDS AT 45MLS/HR. 1/2 NS IS RUNNING THROUGH THE PTS PICC LINE KVO. TELE IS IN PLACE, SINUS TACH IN THE 100'S. THE PT DENIES ANY SOB, CHEST PAIN/PRESSURE OR N/V. CURRENTLY THE PT IS LAYING IN BED WITH THE BED IN THE LOWEST POSITION AND THE CALL LIGHT WITHIN REACH.
[2023-01-29 05:32] LABS: Platelet Count 38 K/mm3 (150-400)
[2023-01-29 05:42] LABS: Albumin, Blood 1.9 g/dL (3.4-5.0); Anion Gap 1 mmol/L (6-16); Blood Urea Nitrogen 38 mg/dL (8-24); Bun/Creatinine Ratio 71.8 (12.0-20.0); CO2, Blood 27 mmol/L (21-32); Calcium, Blood 8.9 mg/dL (8.5-10.1); Chloride, Blood 117 mmol/L (98-108); Creatinine, Blood 0.53 mg/dL (0.40-1.00); Glomerular Filtration Rate 109 (60-); Glucose, Blood 105 mg/dL (70-99); Magnesium, Blood 1.8 mg/dL (1.6-2.4); Phosphorus, Blood 2.9 mg/dL (2.5-4.9); Potassium, Blood 3.6 mmol/L (3.5-5.5); Sodium, Blood 145 mmol/L (136-145)
[2023-01-29 08:14] VITALS: BP 130/95
[2023-01-29 16:39] VITALS: BP 134/96
--- NOTE | 2023-01-29 17:37 | NUR ---
SHIFT SUMMARY PATIENT IS ALERT AND ORIENTED X3. PATIENT HAS BEEN DIFFICULT TO UNDERSTAND WITH SOFT VOICE. PATIENT HAS HAD NO ACUTE EVENTS THIS SHIFT. VITAL SIGNS REVIEWED. PATIENT HAS BEEN TURNED Q2. ORAL CARE DONE Q4. PATIENT HAD MEMPLEX REPLACED ONCE THIS SHIFT. PATIENT REMAINS INCONTINENT THIS SHIFT WITH LOOSE STOOLS. PATIENT REMAINS ON CONT TUBE FEEDS. PATIENT IS ON TELE WITH NO EVENTS. PATIENT HAS NOT COMPLAINED OF PAIN, SOB, NAUSEA, OR VOMITTING THIS SHIFT. BED IN LOCKED AND LOWEST POSITION. CALL LIGHT IN PLACE. WILL MONITOR UNTIL SHIFT CHANGE.
[2023-01-29 19:42] VITALS: BP 120/91
[2023-01-30 04:44] VITALS: BP 120/93
--- NOTE | 2023-01-30 06:42 | NUR ---
AIR BAG BUFFER SUMMARY ASSUMED CARE OF THE PT AT 1900. SHE IS ALERT AND ORIENTED X2-3, THOUGH APPEARS SLIGHTLY CONFUSED THIS AM. SHE IS ON TUBE FEED AT 45 ML/HR THROUGH DOBHOFF. Q2 TURNS AND PT APPEARS TO BE IMPROVING IN STRENGTH AND ABLE TO ASSIST MORE. 400 ML URINE OUTPUT IN PUREWICK. ONE BM THIS SHIFT. IV ABX THERAPY. NO ACUTE EVENTS. SINUS TACH ON TELE.
[2023-01-30 08:00] VITALS: BP 135/91
[2023-01-30 08:35] LABS: BASOPHILS ABSOLUTE AUTO 0.01 K/mm3 (0.00-0.23); BASOPHILS PERCENT AUTO 0 % (0-2); EOSINOPHILS ABSOLUTE AUTO 0.91 K/mm3 (0.00-0.68); EOSINOPHILS PERCENT AUTO 8 % (0-6); Hemoglobin 8.4 g/dL (11.5-16.0); IMMATURE GRAN ABSOLUTE AUTO 0.08 K/mm3 (0.00-0.10); IMMATURE GRAN PERCENT AUTO 1 % (0-1); LYMPHOCYTES ABSOLUTE AUTO 0.88 K/mm3 (0.84-5.20); LYMPHOCYTES PERCENT AUTO 8 % (21-46); MONOCYTES ABSOLUTE AUTO 0.59 K/mm3 (0.16-1.47); MONOCYTES PERCENT AUTO 5 % (4-13); Mean Corpuscular HGB 30.4 pg (26.0-34.0); Mean Corpuscular Volume 101 fL (80-100); NEUTROPHILS ABSOLUTE AUTO 8.99 K/mm3 (1.96-9.15); NEUTROPHILS PERCENT AUTO 79 % (41-73); RDW Coefficient Variation 21.2 % (11.7-14.2); RDW Standard Deviation 77.6 fL (35.1-46.3); Red Blood Cell Count 2.76 M/mm3 (3.80-5.20); White Blood Cell Count 11.46 K/mm3 (4.00-11.30)
[2023-01-30 08:47] LABS: Albumin, Blood 1.7 g/dL (3.4-5.0); Anion Gap 2 mmol/L (6-16); Blood Urea Nitrogen 29 mg/dL (8-24); Bun/Creatinine Ratio 61.3 (12.0-20.0); CO2, Blood 23 mmol/L (21-32); Calcium, Blood 7.6 mg/dL (8.5-10.1); Chloride, Blood 112 mmol/L (98-108); Creatinine, Blood 0.47 mg/dL (0.40-1.00); Glomerular Filtration Rate 112 (60-); Glucose, Blood 104 mg/dL (70-99); Magnesium, Blood 1.5 mg/dL (1.6-2.4); Phosphorus, Blood 3.1 mg/dL (2.5-4.9); Platelet Count 34 K/mm3 (150-400); Potassium, Blood 3.9 mmol/L (3.5-5.5); Sodium, Blood 137 mmol/L (136-145)
[2023-01-30 14:55] VITALS: BP 126/93
--- NOTE | 2023-01-30 15:00 | NUR ---
Review of patient in rounds today. Also review with nursing. Met with pt today for therputic visit and assessment. Pt resing in bed slighly labored in breathing. Some anexiety noted abdomen slighly distended. She denies headache or nausea some anexiety and she complains mostly of her right shoulder and arm hurting. She also expresses some fear at being alone in room. She can track the conversation but it is a struggle. Review of her hospitalization she does not remember much. Slowly reviewed what the recovery phase and rehab will look like. She demonstrated understanding but kept going back to her arm pain and her fear. She looks very frail pt kps score is 50%. She is hisgh risk for readmission and failed rehab. Review pain medications and using low dose tylenol and reducing any somulence. Will follow up to see what her new baseline will be and review rahabs notes carefully for pronostication. Will have and another advance care planning conversation with .
--- NOTE | 2023-01-30 18:29 | NUR ---
SHIFT SUMMARY: PT A&O X3. PT HAS BEEN PLEASANT AND COOPERATIVE WITH CARE. SPEECH ARRIVED EARLY THIS AM AND EVALUATED PT. PT PLACED ON PUREE DIET AND MEDS CRUSHED IN . PT TOLERATING MEDICATIONS WELL. PT EATING VERY SMALL AMOUNTS ON MEALS AND HAD ONE CASE OF COUGHING DURING DINNER. FEEDING STILL RUNNING AT 45/HR THROUGH DOBHOFF. PT WORKED WELL WITH PT AND OT THIS SHIFT. STRENGTH IMPROVING. PT ON 2L 02. IV ABX THERAPY. Q2 TURNS. PT C/O PAIN ONCE THIS SHIFT IN R. SHOULDER, ARM, AND LEG. CALL LIGHT IN REACH. BED IN LOWEST POSITION. WILL CONTINUE TO MONITOR.
[2023-01-30 19:33] VITALS: BP 128/94
[2023-01-31 04:18] VITALS: BP 114/93
[2023-01-31 05:31] LABS: BASOPHILS ABSOLUTE AUTO 0.02 K/mm3 (0.00-0.23); BASOPHILS PERCENT AUTO 0 % (0-2); EOSINOPHILS ABSOLUTE AUTO 1.13 K/mm3 (0.00-0.68); EOSINOPHILS PERCENT AUTO 8 % (0-6); Hematocrit 29.1 % (33.0-51.0); Hemoglobin 9.2 g/dL (11.5-16.0); IMMATURE GRAN ABSOLUTE AUTO 0.15 K/mm3 (0.00-0.10); IMMATURE GRAN PERCENT AUTO 1 % (0-1); LYMPHOCYTES ABSOLUTE AUTO 1.36 K/mm3 (0.84-5.20); LYMPHOCYTES PERCENT AUTO 10 % (21-46); MONOCYTES ABSOLUTE AUTO 0.62 K/mm3 (0.16-1.47); MONOCYTES PERCENT AUTO 4 % (4-13); Mean Corpuscular HGB 31.1 pg (26.0-34.0); Mean Corpuscular HGB Conc 31.6 g/dL (31.5-36.5); Mean Corpuscular Volume 98 fL (80-100); NEUTROPHILS ABSOLUTE AUTO 11.05 K/mm3 (1.96-9.15); NEUTROPHILS PERCENT AUTO 77 % (41-73); RDW Standard Deviation 74.5 fL (35.1-46.3); Red Blood Cell Count 2.96 M/mm3 (3.80-5.20); White Blood Cell Count 14.33 K/mm3 (4.00-11.30)
[2023-01-31 05:48] LABS: Platelet Count 41 K/mm3 (150-400)
[2023-01-31 05:53] LABS: Albumin, Blood 1.9 g/dL (3.4-5.0); Anion Gap 1 mmol/L (6-16); Blood Urea Nitrogen 31 mg/dL (8-24); Bun/Creatinine Ratio 53.7 (12.0-20.0); CO2, Blood 26 mmol/L (21-32); Calcium, Blood 8.3 mg/dL (8.5-10.1); Chloride, Blood 108 mmol/L (98-108); Creatinine, Blood 0.58 mg/dL (0.40-1.00); Glomerular Filtration Rate 107 (60-); Glucose, Blood 98 mg/dL (70-99); Magnesium, Blood 1.9 mg/dL (1.6-2.4); Potassium, Blood 4.3 mmol/L (3.5-5.5); Sodium, Blood 135 mmol/L (136-145)
--- NOTE | 2023-01-31 06:15 | NUR ---
PATIENT WAS ALERT AND ORIENTED X4, COOPERATIVE WITH CARE, VOICE SOFT. NG INFUSING WITHOUT ISSUE. PIV INFUSING TKO IN BETWEEN ANTIBIOTICS. BEDREST, BLE MOSTLY FLACID, BUE WEAK, DOING WELL WITH MEDS CRUSHED IN SAUCE, THICKENED LIQUID. PURWICK DRAINING TO SUCTION. BARRIER APPLIED TO COCCYX AND TRACEE AREA. PAIN TREATED PER MAR. NO OTHER CHANGES TO REPORT.
[2023-01-31 08:45] VITALS: BP 122/87
[2023-01-31 16:06] VITALS: BP 136/92
[2023-01-31 17:21] LABS: Albumin, Blood 1.9 g/dL (3.4-5.0)
--- NOTE | 2023-01-31 18:43 | NUR ---
SHIFT SUMMARY A&O X 3-4. VSS. NGT INTACT & PATENT WITH JEVITY 1.2 SOPHIA GOING AT 45ML/HR WITH H20 FLUSH 70ML Q2 HRS PER ORDER. PICC LINE IN R UA INTACT & PATENT, DRAWS WELL. PUREWICK IN PLACE TO LOW CONT SXN MANAGING UO WELL. PT PARTICIPATED WITH PHYS THERAPY TODAY. TURNED Q2, BILAT HEEL PROTECTORS ON. WROTE ORDERS FOR PARACENTESIS. RECEIVED CALL FROM RADIOLOGY PERSONNAL STATING PARA WILL LIKELY OCCUR TOMORROW AM, VERIFIED PT IS NOT ON ANY BLOOD THINNERS. NOTIFIED ULTRA SOUND THAT PT'S PLTS ARE 41.
[2023-01-31 19:39] VITALS: BP 140/93
[2023-02-01 04:47] LABS: BASOPHILS ABSOLUTE AUTO 0.03 K/mm3 (0.00-0.23); BASOPHILS PERCENT AUTO 0 % (0-2); EOSINOPHILS ABSOLUTE AUTO 0.95 K/mm3 (0.00-0.68); EOSINOPHILS PERCENT AUTO 7 % (0-6); Hematocrit 30.1 % (33.0-51.0); Hemoglobin 9.3 g/dL (11.5-16.0); IMMATURE GRAN ABSOLUTE AUTO 0.14 K/mm3 (0.00-0.10); IMMATURE GRAN PERCENT AUTO 1 % (0-1); LYMPHOCYTES ABSOLUTE AUTO 1.09 K/mm3 (0.84-5.20); LYMPHOCYTES PERCENT AUTO 8 % (21-46); MONOCYTES ABSOLUTE AUTO 0.84 K/mm3 (0.16-1.47); MONOCYTES PERCENT AUTO 6 % (4-13); Mean Corpuscular HGB 30.4 pg (26.0-34.0); Mean Corpuscular HGB Conc 30.9 g/dL (31.5-36.5); Mean Corpuscular Volume 98 fL (80-100); NEUTROPHILS PERCENT AUTO 77 % (41-73); RDW Coefficient Variation 21.1 % (11.7-14.2); RDW Standard Deviation 75.7 fL (35.1-46.3); Red Blood Cell Count 3.06 M/mm3 (3.80-5.20); White Blood Cell Count 13.15 K/mm3 (4.00-11.30)
[2023-02-01 05:02] LABS: International Normalized Ratio 1.74; Prothrombin Time Results 17.7 Sec (9.7-11.5)
[2023-02-01 05:04] LABS: Platelet Count 39 K/mm3 (150-400)
[2023-02-01 05:14] LABS: Albumin, Blood 1.9 g/dL (3.4-5.0); Albumin/Globulin Ratio 0.4 (0.8-1.8); Bilirubin, Total 2.1 mg/dL (0.1-1.0); Bun/Creatinine Ratio 57.8 (12.0-20.0); Calcium, Blood 8.4 mg/dL (8.5-10.1); Creatinine, Blood 0.57 mg/dL (0.40-1.00); Globulin, Blood 4.5 g/dL (2.2-4.0); Magnesium, Blood 1.7 mg/dL (1.6-2.4); Phosphorus, Blood 4.2 mg/dL (2.5-4.9); Potassium, Blood 4.4 mmol/L (3.5-5.5); Total Protein, Blood 6.4 g/dL (6.4-8.2)
[2023-02-01 07:09] VITALS: BP 133/91
--- NOTE | 2023-02-01 07:53 | NUR ---
PATIENT WAS ALERT AND ORIENTED X4, LABILE AT TIMES. BEDREST, Q2 TURNS, ORAL CARE PROVIDED. AT 0000, NG TUBE CLOGGED, MUCH TIME WAS SPENT TRYING TO CORRECT, HOWEVER NOT EFFECTIVE. WHEN UNIT CHARGE AND THIS HYDROMETER FINISHER INFORMED PATIENT THE NG TUBE WOULD HAVE TO BE REPLACED, PATIENT STARTED TO CRY AND GOT VERY UPSET. SHE STATED SHE WANTED A CHANGE TO CONSUME ORAL NUTRITION FIRST. CHART WAS EXPLORED AND PATIENT WAS ENCOURAGED ONCE MORE, HOWEVER SHE STILL WANTED TO WAIT. 75% OF ENSURE WITH PROTIEN WAS CONSUMED AND A SMALL AMOUNT OF ORAL FLUIDS AND SAUCE WITH MEDS. NO N/V OR PAIN REPORTED. PICC LINE DRESSING WAS CHANGED. PATIENT IS INC OF BOWEL AND BLADDER, FREQUEST CALLS FOR BEDPAN AND BRIEF CHANGE. PATIENT IS A FEEDER AND NEEDSMAX ASSIST WITH NUTRITION. COCCYX HEALING WELL, TRACEE AREA PAINFUL, OFFLOADING AND CREAM APPLIED. PURWICK DRAINING TO SUCTION.
--- NOTE | 2023-02-01 10:49 | NUR ---
PT. DOBHOFF PLUGGED OVERNIGHT, REMOVED THIS AM. PT. DOES NOT WANT ANOTHER DOBHOFF PLACED, NOTIFIED OF PT. WISHES. PT. WAS ABLE TO TAKE IN 50% OF BREAKFAST THIS AM. REQUESTED H[employer] FOOD/DRINK WITH MEALS, DIETARY TO COME ASSESS PATIENT TODAY 02/01/2023. WILL ENCOURAGE PT. ORAL INTAKE BETWEEN MEALS PER DR. BOLAND.
--- NOTE | 2023-02-01 13:41 | NUR ---
Met with pt this afternoon, she was pleasant and drowsy. She was able to tell me her name, and that she is planning to go to rehab when she discharges from the hospital. She is currently bedbound due to extreme weakness. NG was removed due to a blockage, and pt is just now beginning to take nurtrition by mouth. She continues needing paracentesis, is on continuous 02 and remains SOB. Spoke to pt's Terry as well. We last spoke when pt was in ICU on the vent, and at that time, it was unknown if pt would survive the ordeal. Terry states he continues to be optimistic, but understands the pt's health remains fragile. He agrees the plan for now remains longterm rehab so long as pt is able to tolerate it and her health improves. Otherwise, he is open to further discussions about hospice if pt's health does not improve, and if her quality of life. Palliave care to remain available.
[2023-02-01 15:18] VITALS: BP 137/99
--- NOTE | 2023-02-01 16:33 | NUR ---
SHIFT SUMMARY PT. IS AOX4. BEDREST WITH Q2H TURNS, Q4H ORAL CARE PROVIDED. PT. HAD PARACENTSIS THIS AM AND DOBHOFF REMOVED, TOLERATED BOTH WELL. DIETARY TO SEND H[employer] FOOD CHOICES WITH MEAL TRAYS, ENCOURAGE ORAL INTAKE BETWEEN MEALS. PT. TOLERATES CRUSHED MEDS IN APPLESAUCE PER SPEECH THERAPY. PT. PAIN TREATED PER EMAR. PT. COOPERATIVE WITH CARE AND ABLE TO MAKE HER NEEDS KNOWN. PURWICK IN PLACE. SOFT TOUCH CALL LIGHT WITHIN REACH AND BED IN LOWEST POSITION.
--- NOTE | 2023-02-01 17:38 | NUR ---
REFER TO STUDENT NOTE FOR SHIFT SUMMARY.
[2023-02-02 01:51] VITALS: BP 129/96
[2023-02-02 01:52] VITALS: BP 129/96
[2023-02-02 04:24] VITALS: BP 132/93
[2023-02-02 07:23] VITALS: BP 133/96
--- NOTE | 2023-02-02 07:53 | NUR ---
PATIENT REMAINS ALERT AND ORIENTED, COOPERATIVE WITH CARE. Q2 TURNS AND ORAL CARE COMPLETED. NUTRITION AND FLUIDS PROVIDED EACH ROOM VISIT. PATIENT LIKES HER DRINGS IN STYROFOAM, AND CAN HOLD CUP HERSELF, ALTHOUGH NEEDS 100% SUPERVISION DUE TO ASPIRATION PRECAUTIONS AND DECONDITIONING. PATIETN LOOKS STRONGER WITH MORE GROSS AND FINE MOTOR SKILLS THIS SHIFT. PICC LINE SL. NO OTHER ISSUES TO REPORT.
[2023-02-02 08:34] LABS: BASOPHILS ABSOLUTE AUTO 0.03 K/mm3 (0.00-0.23); BASOPHILS PERCENT AUTO 0 % (0-2); EOSINOPHILS ABSOLUTE AUTO 0.75 K/mm3 (0.00-0.68); EOSINOPHILS PERCENT AUTO 7 % (0-6); Hematocrit 30.5 % (33.0-51.0); Hemoglobin 9.7 g/dL (11.5-16.0); IMMATURE GRAN ABSOLUTE AUTO 0.11 K/mm3 (0.00-0.10); IMMATURE GRAN PERCENT AUTO 1 % (0-1); LYMPHOCYTES ABSOLUTE AUTO 1.01 K/mm3 (0.84-5.20); LYMPHOCYTES PERCENT AUTO 9 % (21-46); MONOCYTES ABSOLUTE AUTO 0.82 K/mm3 (0.16-1.47); MONOCYTES PERCENT AUTO 8 % (4-13); Mean Corpuscular HGB 31.1 pg (26.0-34.0); Mean Corpuscular HGB Conc 31.8 g/dL (31.5-36.5); Mean Corpuscular Volume 98 fL (80-100); NEUTROPHILS ABSOLUTE AUTO 8.22 K/mm3 (1.96-9.15); NEUTROPHILS PERCENT AUTO 75 % (41-73); RDW Coefficient Variation 21.2 % (11.7-14.2); RDW Standard Deviation 75.1 fL (35.1-46.3); Red Blood Cell Count 3.12 M/mm3 (3.80-5.20); White Blood Cell Count 10.94 K/mm3 (4.00-11.30)
[2023-02-02 08:49] LABS: Platelet Count 40 K/mm3 (150-400)
[2023-02-02 08:52] LABS: Bun/Creatinine Ratio 71.2 (12.0-20.0); Creatinine, Blood 0.59 mg/dL (0.40-1.00); Potassium, Blood 4.2 mmol/L (3.5-5.5)
--- NOTE | 2023-02-02 11:08 | NUR ---
Pt's is at bedside, and pt worked with both ST and OT this am. Bedside RN reports pt is doing "about the same" overall; remains very deconditioned, and wears out quickly. The current plan is still for patient to go to [facility] after hospitalization depending on pt's progress, and affordability for pt and her , who are too young for medicare and are using 's [employer] based medical insurance. Palliative will remain available as needed.
[2023-02-02 15:26] VITALS: BP 119/89
--- NOTE | 2023-02-02 17:24 | NUR ---
PT DID PARTICIPATE IN THERAPY TODAY. PT AND OT. NOTRITION IN AND PT DESIRES SOFT AND MOIST FOODS. THEY TO ASSIST IN ADJUSTING. IT WAS NOTED THAT PICC LINE PRESENTS AT 11 CM VS INSERTION AT 4 CM. COVER REMOVER WAS CALLED TO VISUALIZE WITH ME AND CONTINUES TO DRAW. NOTES TO HAVE PICC LINE RN ASSESS AVAIL. NO OTHER CONCERNS NOTED. BED IN LOW POSITION, CALL LITE IN REACH, CALLS [facility]
[2023-02-02 20:20] VITALS: BP 123/90
[2023-02-03 05:02] VITALS: BP 115/80
[2023-02-03 05:11] LABS: BASOPHILS ABSOLUTE AUTO 0.03 K/mm3 (0.00-0.23); BASOPHILS PERCENT AUTO 0 % (0-2); EOSINOPHILS ABSOLUTE AUTO 0.73 K/mm3 (0.00-0.68); EOSINOPHILS PERCENT AUTO 7 % (0-6); Hematocrit 31.7 % (33.0-51.0); Hemoglobin 10.2 g/dL (11.5-16.0); IMMATURE GRAN ABSOLUTE AUTO 0.11 K/mm3 (0.00-0.10); IMMATURE GRAN PERCENT AUTO 1 % (0-1); LYMPHOCYTES ABSOLUTE AUTO 1.17 K/mm3 (0.84-5.20); LYMPHOCYTES PERCENT AUTO 10 % (21-46); MONOCYTES PERCENT AUTO 7 % (4-13); Mean Corpuscular HGB 31.3 pg (26.0-34.0); Mean Corpuscular HGB Conc 32.2 g/dL (31.5-36.5); Mean Corpuscular Volume 97 fL (80-100); NEUTROPHILS PERCENT AUTO 75 % (41-73); RDW Coefficient Variation 21.1 % (11.7-14.2); RDW Standard Deviation 75.3 fL (35.1-46.3); Red Blood Cell Count 3.26 M/mm3 (3.80-5.20); White Blood Cell Count 11.24 K/mm3 (4.00-11.30)
[2023-02-03 05:21] LABS: Platelet Count 45 K/mm3 (150-400)
[2023-02-03 05:33] LABS: Bun/Creatinine Ratio 77.5 (12.0-20.0); Calcium, Blood 9.3 mg/dL (8.5-10.1); Creatinine, Blood 0.58 mg/dL (0.40-1.00); Potassium, Blood 3.9 mmol/L (3.5-5.5)
--- NOTE | 2023-02-03 06:35 | NUR ---
SHIFT SUMMARY PT SITTING UP IN BED DURING BEDSIDE ROUNDS, PT BED AT 30 DEGREES- PT HAS 2L OXYGEN VIA NC- PERIWICK IN PLACE SUCTIONING CLEAR YELLOW URINE- PT REPOSITIONED Q2H, BILAT LEGS ELEVATED WITH PILLOWS AND HEEL LIFTS, SCDS IN PLACE- PT REPORTED PAIN IN RIGHT ARM D/T PT DOING RANGE OF MOTION EXERCISED T/O NIGHT- GAVE TRAMADOL FOR 9/10 PAIN- BLOOD DRAWN FROM PICC LINE WITHOUT PROBLEMS, CALL FROM LAB IN AM = PLATLETS AT 45- DISCUSSED WITH TITA CHARGE NURSE- NO CALL TO BEING HIGHER LEVEL THEN PREVIOUS DRAWS- BED LOW POSITION, SOFT TOUCH CALL LIGHT WITHIN REACH, BED ALARM IN PLACE
[2023-02-03 07:08] VITALS: BP 138/89
--- NOTE | 2023-02-03 12:48 | NUR ---
RN AM NOTE MS GOODSON IS ORIENTATED TO HER NAME, ABLE TO TELL ME THE YEAR AND MONTH AFTER THINKING ABOUT IT, TOLD ME SHE WAS IN [place], BUT THEN REMEMBERED SHE WAS AT [facility] WHEN REMINDED AND KNEW WHY SHE WAS HERE. FAMILY AT BEDSIDE SAID THIS IS MORE CONFUSED THAN SHE HAS BEEN. PT SAID SHE FEELS VERY TIRED AND THAT IS MAKING HER CONFUSED. PUPILS UNEQUAL IN SIZE, PT NOT SURE IF THIS IS NEW OR NOT. DISCUSSED WITH DR BOLAND THIS AM. OVERALL SHE FEELS SHE IS GETTING STRONGER, ABLE TO HOLD HER CUP. WEAK TRAIN OPERATOR. R HAND AND ARM PAIN. ORAL CARE DONE AND PT SAID HER MOUTH IS FEELING BETTER. NO CHANGE IN PICC LINE STATUS. OPEN 0.5CM AREA TO COCCYX, PHOTOGRAPH IN CHART, MEPILEX APPLIED AND REGULAR TURNING/PRESSURE RELIEF. CONTINENT OF LARGE SOFT BM THIS AM. BED LOW, CALL LIGHT IN REACH.
--- NOTE | 2023-02-03 16:00 | NUR ---
SHIFT SUMMARY NO ACUTE CHANGES FROM RN NOTE AT 1248HRS. MS GOODSON HAS WORKED WITH PT. SHE HAS BEEN LIFTING THE CUP HERSELF AND IS TOLERATING THIN LIQUIDS. SHE SAID THE PAIN IN HER RIGHT HAND AND ARM HAS IMPROVED. HER APPETITE HAS IMPROVED TODAY PER FAMILY. BED LOW, CALL LIGHT IN REACH. FAMILY AT BEDSIDE.
[2023-02-03 16:05] VITALS: BP 121/86
[2023-02-03 20:40] VITALS: BP 127/89
--- NOTE | 2023-02-04 05:37 | NUR ---
SHIFT SUMMARY 57 YR F ADMITTED SINCE 01/10/23. DNR. NO ACUTE CHANGES THIS SHIFT. PT HAS BEEN VERY HEAVY ON THE CALL LIGHT THIS SHIFT CALLING AT LEAST 20 TIMES FOR VERY MINOR THINGS. SHE DID HAVE 1 INCONTINENT BM THAT WAS DIARRHEA. SHE WAS MEDICATED FOR NAUSEA ONE TIME AND HAD NO OTHER C/O PAIN OR DISCOMFORT THIS SHIFT.
[2023-02-04 07:15] VITALS: BP 125/87
--- NOTE | 2023-02-04 15:00 | NUR ---
SHIFT SUMMARY MS GOODSON IS ORIENTATED TO HERSELF, DATE, ICU AT [facility]. HER VOICE IS VERY QUIET AND SHE IS SLIGHTLY CONFUSED AT TIMES, BUT IS CONVERSING WELL AND ABLE TO COMMUNICATE APPROPRIATELY. SHE HAS BEEN REACHING OUT FOR HER CUP, STRONGER IN HER QUALITY CONTROL INSPECTOR HEADING TODAY, ABLE TO LIFT THE CUP OFF THE BEDSIDE TABLE TO HER LIPS WITH DIFFICULTY, BUT IMPROVEMENT NOTICED. SHE SAID HER PAIN LEVEL HAS BEEN LOW TODAY, GENERAL SORENESS TO HER ARMS AND COCCYX SORE WHEN CLEANED. LARGE SOFT BM TODAY. NO COUGHING AFTER DRINKING THIN LIQUIDS. SHE HAS BEEN PARTICIPATING IN TURNING IN BED, STILL VERY WEAK. A LOT OF WEAKNESS IN MOVING HER LEGS. BED LOW, CALL LIGHT IN REACH, HOB ELEVATED.
[2023-02-04 15:43] VITALS: BP 132/87
[2023-02-04 19:48] VITALS: BP 118/82
[2023-02-05 03:44] VITALS: BP 131/91
[2023-02-05 05:29] LABS: BASOPHILS ABSOLUTE AUTO 0.04 K/mm3 (0.00-0.23); BASOPHILS PERCENT AUTO 0 % (0-2); EOSINOPHILS ABSOLUTE AUTO 0.67 K/mm3 (0.00-0.68); EOSINOPHILS PERCENT AUTO 6 % (0-6); Hematocrit 36.5 % (33.0-51.0); Hemoglobin 11.5 g/dL (11.5-16.0); IMMATURE GRAN PERCENT AUTO 1 % (0-1); LYMPHOCYTES ABSOLUTE AUTO 1.22 K/mm3 (0.84-5.20); LYMPHOCYTES PERCENT AUTO 10 % (21-46); MONOCYTES ABSOLUTE AUTO 1.25 K/mm3 (0.16-1.47); MONOCYTES PERCENT AUTO 11 % (4-13); Mean Corpuscular HGB Conc 31.5 g/dL (31.5-36.5); Mean Corpuscular Volume 98 fL (80-100); NEUTROPHILS ABSOLUTE AUTO 8.54 K/mm3 (1.96-9.15); NEUTROPHILS PERCENT AUTO 72 % (41-73); RDW Standard Deviation 76.7 fL (35.1-46.3); Red Blood Cell Count 3.71 M/mm3 (3.80-5.20); White Blood Cell Count 11.82 K/mm3 (4.00-11.30)
[2023-02-05 05:44] LABS: Platelet Count 43 K/mm3 (150-400)
[2023-02-05 05:47] LABS: Bun/Creatinine Ratio 87.1 (12.0-20.0); Calcium, Blood 9.1 mg/dL (8.5-10.1); Creatinine, Blood 0.55 mg/dL (0.40-1.00); Potassium, Blood 4.3 mmol/L (3.5-5.5)
[2023-02-05 08:00] VITALS: BP 132/91
[2023-02-05 15:37] VITALS: BP 121/82
--- NOTE | 2023-02-05 16:26 | NUR ---
MUSCULOSKELETAL ASSESSMENT PATIENT HAS PROFOUND OVERALL MUSCLE WEAKNESS DUE TO DECONDITIONING FROM BEING BED BOUND AND PRIOR INTUBATION/MEDICAL INDUCED COMA. SHE CONTINUES TO RECEIVE OT/PT THERAPIES AND UTILIZING ACTIVE AND PASSIVE ROM. SHE HAS ENOUGH STRENGTH TO ASSIST IN ROLLING WHEN IT COMES TO BRIEF CHANGES/TOILETING. SHE LIFTS ARMS AND LEGS WHEN PROMPTED AND IS ABLE TO FEED HERSELF, BUT DOES TIRE QUICKLY.
--- NOTE | 2023-02-05 18:51 | NUR ---
SHIFT SUMMARY PT IS A&O X3. SHE HAS PROGRESSED FROM NECTAR THICK TO THIN LIQUIDS AND SINCE THIS TRANSITION HER FLUID INTAKE HAS IMPROVED. SHE DOES COUGH PERIODICALLY AFTER SHE DRINKS, BUT DOESN'T SHOW SIGNS OF ASPIRATION. SHE DOESN'T HAVE MUCH OF AN APPETITE, BUT IS AWARE THAT SHE NEEDS TO EAT IN ORDER TO GET BETTER. SHE STICKS TO THE SUPPLEMENTAL PROTEIN GELATINS AND ENSURES. SHE FEEDS HERSELF, BUT FATIGUES QUICKLY AND NEEDS ASSISTANCE. HER NASAL CANNUAL O2 WAS D/C'D D/T SUSTAINING OXYGEN AT >96% ON RA. SHE IS COMFORTABLE, CALL LIGHT WITHIN REACH, AND USES APPROPRIATELY.
[2023-02-05 20:14] VITALS: BP 115/74
[2023-02-06 04:49] VITALS: BP 113/75
[2023-02-06 05:18] LABS: BASOPHILS ABSOLUTE AUTO 0.04 K/mm3 (0.00-0.23); BASOPHILS PERCENT AUTO 0 % (0-2); EOSINOPHILS ABSOLUTE AUTO 0.55 K/mm3 (0.00-0.68); EOSINOPHILS PERCENT AUTO 5 % (0-6); Hematocrit 31.9 % (33.0-51.0); Hemoglobin 10.5 g/dL (11.5-16.0); IMMATURE GRAN ABSOLUTE AUTO 0.11 K/mm3 (0.00-0.10); IMMATURE GRAN PERCENT AUTO 1 % (0-1); LYMPHOCYTES ABSOLUTE AUTO 1.39 K/mm3 (0.84-5.20); LYMPHOCYTES PERCENT AUTO 12 % (21-46); MONOCYTES ABSOLUTE AUTO 1.17 K/mm3 (0.16-1.47); MONOCYTES PERCENT AUTO 10 % (4-13); Mean Corpuscular HGB Conc 32.9 g/dL (31.5-36.5); Mean Corpuscular Volume 94 fL (80-100); NEUTROPHILS PERCENT AUTO 72 % (41-73); RDW Coefficient Variation 20.4 % (11.7-14.2); RDW Standard Deviation 70.6 fL (35.1-46.3); Red Blood Cell Count 3.39 M/mm3 (3.80-5.20); White Blood Cell Count 11.66 K/mm3 (4.00-11.30)
[2023-02-06 05:28] LABS: Platelet Count 49 K/mm3 (150-400)
[2023-02-06 05:59] LABS: Bun/Creatinine Ratio 83.8 (12.0-20.0); Creatinine, Blood 0.53 mg/dL (0.40-1.00); Potassium, Blood 3.7 mmol/L (3.5-5.5)
--- NOTE | 2023-02-06 06:13 | NUR ---
PT ABLE TO HELP WITH TURNS AND REPOSITIONING, NEEDS ENCOURAGEMENT TO HELP WITH ADLS.
[2023-02-06 07:10] VITALS: BP 127/78
[2023-02-06 11:39] LABS: Influenza A, PCR NEGATIVE (NEGATIVE); Influenza B, PCR NEGATIVE (NEGATIVE); Resp Syncytial Virus, PCR NEGATIVE (NEGATIVE); SARS-Cov-2 (COVID-19) PCR, MMC NEGATIVE (NEGATIVE)
[2023-02-06] MEDS ORDERED: LIQUACEL PO (11:55)
[2023-02-06] MEDS ORDERED: BANATROL PLUS1 EAC1 PO (11:56)
[2023-02-06] MEDS ORDERED: TRAM50 PO (11:57)
[2023-02-06] MEDS ORDERED: MICONAZOLE NITR85 GM TOP (12:03)
[2023-02-06] MEDS ORDERED: IPRAT-ALBUT 0.5-3 ML INH (12:06)
[2023-02-06] MEDS ORDERED: Docu Liqui50 MG/5 ML PO (12:13)
[2023-02-06 15:18] VITALS: BP 118/77
--- NOTE | 2023-02-06 16:41 | NUR ---
SHIFT SUMMARY PENDING DC. AWAITING AUTH TO LEAVE TO [facility]. RESP PANEL NEGATIVE. PT OFF O2. SATING IN THE 90S ON RA. PT ANXIOUS ABOUT LEAVING BUT VERY COOPERATIVE. POOR APPETITE, BUT DRINKING PLENTY OF FLUIDS. CONT/INCONT WITH BOWEL & BLADDER TODAY. SEVERAL BMS. NO OTHER ACUTE CHANGES IN ASSESSMENT AT THIS TIME. VS REVIEWED. CALL LIGHT IN REACH. DENIES OTHER NEEDS AT THIS TIME.
[2023-02-06 20:16] VITALS: BP 108/76
[2023-02-07 03:52] VITALS: BP 109/78
[2023-02-07 05:10] LABS: Bun/Creatinine Ratio 76.8 (12.0-20.0); Calcium, Blood 8.8 mg/dL (8.5-10.1); Creatinine, Blood 0.53 mg/dL (0.40-1.00); Potassium, Blood 3.6 mmol/L (3.5-5.5)
--- NOTE | 2023-02-07 06:05 | NUR ---
SHIFT SUMMARY 57 YR F ADMITTED ON 01/10/23 FOR RESPIRATORY DISTRESS RELATED TO ALCOHOLIC CIRRHOSIS WITH PORTAL HYPERTENTION; DNR. NO ACUTE CHANGES THIS SHIFT. PT APPEARS TO HAVE SLEPT WELL THIS SHIFT AND HAS HAD NO C/O PAIN OR DISCOMFORT. PLAN IS FOR DISCHARGE TO [facility] TOMORROW.
[2023-02-07 07:35] VITALS: BP 112/82
[2023-02-07 12:43] LABS: Influenza A, PCR NEGATIVE (NEGATIVE); Influenza B, PCR NEGATIVE (NEGATIVE); Resp Syncytial Virus, PCR NEGATIVE (NEGATIVE); SARS-Cov-2 (COVID-19) PCR, MMC NEGATIVE (NEGATIVE)
--- NOTE | 2023-02-07 14:19 | NUR ---
PATIENT TRANSFERRED TO [facility] VIA WC TRANSPORT, REPORT CALLED TO THE FACILITY. DC PACKET GIVEN TO MONUMENT LETTERER AND HARD SCRIPT FOR TRAMADOL PLACED IN PACKET. PATIENT DENIES ANY FURTHER QUESTIONS OR CONCERNS.
--- NOTE | 2023-02-07 18:05 | NUR ---
Pt to [facility] for rehab, then home. Her v/u.
== END 2023-02-07 14:15 | DRG 870 ==
LOC: ER 10:14 → PCU 14:12 → ICUE 14:12 → MEDS 14:12 → PCU 15:52 → ICUE 01-11 08:13 → PCU 01-26 03:58 → MEDS 01-27 17:36 → ENPENDDIS 02-06 14:31 → MEDS 02-07 14:15
PROVIDERS: Emergency Medicine; Internal Medicine; Internal Medicine Critical Care Medicine; Nurse Practitioner Acute Care; ADMIT Hospitalist
PROC: 30233K1 Transfusion of Nonautologous Frozen Plasma into Peripheral Vein, Percutaneous Approach (ICD-10-PCS; principal; 2023-01-11)
PROC: 5A1955Z Respiratory Ventilation, Greater than 96 Consecutive Hours (ICD-10-PCS; 2023-01-11)
PROC: 0W9G3ZZ Drainage of Peritoneal Cavity, Percutaneous Approach (ICD-10-PCS; 2023-01-11)
PROC: 02HV33Z Insertion of Infusion Device into Superior Vena Cava, Percutaneous Approach (ICD-10-PCS; 2023-01-11)
PROC: 0DH67UZ Insertion of Feeding Device into Stomach, Via Natural or Artificial Opening (ICD-10-PCS; 2023-01-11)
PROC: 0T9B70Z Drainage of Bladder with Drainage Device, Via Natural or Artificial Opening (ICD-10-PCS; 2023-01-11)
PROC: 0BH18EZ Insertion of Endotracheal Airway into Trachea, Via Natural or Artificial Opening Endoscopic (ICD-10-PCS; 2023-01-11)
PROC: 3E033XZ Introduction of Vasopressor into Peripheral Vein, Percutaneous Approach (ICD-10-PCS; 2023-01-11)
PROC: 30233L1 Transfusion of Nonautologous Fresh Plasma into Peripheral Vein, Percutaneous Approach (ICD-10-PCS; 2023-01-12)
PROC: 0W9G3ZZ Drainage of Peritoneal Cavity, Percutaneous Approach (ICD-10-PCS; 2023-01-22)
PROC: 4A133R1 Monitoring of Arterial Saturation, Peripheral, Percutaneous Approach (ICD-10-PCS; 2023-01-22)
PROC: 0W9G3ZZ Drainage of Peritoneal Cavity, Percutaneous Approach (ICD-10-PCS; 2023-01-23)
DX: A41.01 Sepsis due to Methicillin susceptible Staphylococcus aureus (principal); G92.8 Other toxic encephalopathy; J15.211 Pneumonia due to Methicillin susceptible Staphylococcus aureus; J80 Acute respiratory distress syndrome; J69.0 Pneumonitis due to inhalation of food and vomit; E43 Unspecified severe protein-calorie malnutrition; D68.4 Acquired coagulation factor deficiency; E87.1 Hypo-osmolality and hyponatremia; E87.20 Acidosis, unspecified; J44.0 Chronic obstructive pulmonary disease with (acute) lower respiratory infection; K76.6 Portal hypertension; K52.1 Toxic gastroenteritis and colitis; E87.0 Hyperosmolality and hypernatremia; Z20.822 Contact with and (suspected) exposure to COVID-19; K72.90 Hepatic failure, unspecified without coma; K76.82 Hepatic encephalopathy; E83.42 Hypomagnesemia; F41.9 Anxiety disorder, unspecified; D63.8 Anemia in other chronic diseases classified elsewhere; R13.10 Dysphagia, unspecified; R65.20 Severe sepsis without septic shock; K70.31 Alcoholic cirrhosis of liver with ascites; F32.A Depression, unspecified; E87.6 Hypokalemia; D69.6 Thrombocytopenia, unspecified; Z68.29 Body mass index [BMI] 29.0-29.9, adult; E83.39 Other disorders of phosphorus metabolism; E83.51 Hypocalcemia; T36.95XA Adverse effect of unspecified systemic antibiotic, initial encounter; Z66 Do not resuscitate; M25.551 Pain in right hip; Z98.890 Other specified postprocedural states; Z79.899 Other long term (current) drug therapy
CPT/HCPCS: 0202U; 0241U; 31500; 31720; 32554; 36415; 36430; 36569; 36600; 49083; 51702; 71045; 73010; 76705; 80048; 80053; 80069; 80076; 80202; 81001; 81003; 82040; 82042; 82140; 82330; 82607; 82728; 82746; 82803; 82945; 82947; 83540; 83550; 83605; 83615; 83735; 83880; 84100; 84132; 84145; 84157; 84295; 84484; 85014; 85018; 85025; 85027; 85610; 85730; 86900; 86901; 87040; 87070; 87077; 87086; 87102; 87147; 87186; 87205; 88108; 88305; 89051; 92526; 92610; 93005; 93010; 93306; 93970; 94002; 94003; 94640; 94660; 94664; 94760; 94762; 96372-59; 96374; 97110; 97112; 97162; 97166; 97530; 99285-25; A9270; C1751; C9113; J0295; J0456; J0612; J0696; J1450; J1644; J1940; J2060; J2370; J2405; J2543; J2700; J2704; J2920; J3010; J3370; J3411; J3475; J3480; J7050; J7060; J7512; P9046; P9047; P9059

== ENCOUNTER 2023-02-15 17:14 | Inpatient (IN) | payer OTHER ==
[~2023-02-15] VITALS: Ht 165.1 cm; Wt 55.9 kg
[~2023-02-15 17:14] MED LIST changes: +BANATROL PLUS1 EAC1 PO; +BUME2 PO; +Docu Liqui50 MG/5 ML PO; +IPRAT-ALBUT 0.5-3 ML INH; +LIQUACEL PO; +MICONAZOLE NITR85 GM TOP; +TRAM50 PO; +Vitamin B-12100 MCG PO; +ZOLOFT50 MG PO
[2023-02-15 20:02] LABS: BASOPHILS ABSOLUTE AUTO 0.03 K/mm3 (0.00-0.23); BASOPHILS PERCENT AUTO 0 % (0-2); EOSINOPHILS ABSOLUTE AUTO 0.48 K/mm3 (0.00-0.68); EOSINOPHILS PERCENT AUTO 3 % (0-6); Hematocrit 27.8 % (33.0-51.0); Hemoglobin 9.7 g/dL (11.5-16.0); IMMATURE GRAN ABSOLUTE AUTO 0.14 K/mm3 (0.00-0.10); IMMATURE GRAN PERCENT AUTO 1 % (0-1); LYMPHOCYTES ABSOLUTE AUTO 1.19 K/mm3 (0.84-5.20); LYMPHOCYTES PERCENT AUTO 8 % (21-46); MONOCYTES ABSOLUTE AUTO 1.26 K/mm3 (0.16-1.47); MONOCYTES PERCENT AUTO 9 % (4-13); Mean Corpuscular HGB 30.2 pg (26.0-34.0); Mean Corpuscular HGB Conc 34.9 g/dL (31.5-36.5); Mean Corpuscular Volume 87 fL (80-100); Mean Platelet Volume 11.3 fL (9.1-12.4); NEUTROPHILS ABSOLUTE AUTO 11.59 K/mm3 (1.96-9.15); NEUTROPHILS PERCENT AUTO 79 % (41-73); Platelet Count 61 K/mm3 (150-400); RDW Standard Deviation 57.3 fL (35.1-46.3); Red Blood Cell Count 3.21 M/mm3 (3.80-5.20); White Blood Cell Count 14.69 K/mm3 (4.00-11.30)
[2023-02-15 20:21] LABS: Albumin, Blood 2.1 g/dL (3.4-5.0); Albumin/Globulin Ratio 0.5 (0.8-1.8); Bilirubin, Total 2.3 mg/dL (0.1-1.0); Bun/Creatinine Ratio 44.8 (12.0-20.0); Creatinine, Blood 0.47 mg/dL (0.40-1.00); Globulin, Blood 4.1 g/dL (2.2-4.0); Potassium, Blood 3.3 mmol/L (3.5-5.5); Total Protein, Blood 6.2 g/dL (6.4-8.2)
[2023-02-15 22:11] LABS: Thyroid Stimulating Hormone 3.04 uIU/mL (0.360-4.800)
[2023-02-15 22:55] LABS: Source, Urine Fem Cath
[2023-02-15 23:09] VITALS: BP 119/81
[2023-02-15 23:09] LABS: Bilirubin, Urine Neg (Neg); Blood, Urine Neg (Neg); Glucose Qualitative, Urine Neg (Neg); Ketones, Urine Neg (Neg); Leukocyte Esterase, Urine 1+ (Neg); Nitrite, Urine Pos (Neg); Protein, Urine Neg (Neg); Specific Gravity, Urine 1.015 (1.003-1.022); Urobilinogen, Urine NORM (Normal)
--- NOTE | 2023-02-15 23:10 | NUR ---
ADMIT RECEIVED FROM ER VIA GURNEY. AWAKE AND ALERT. ORIENTED X 3. COOPERATIVE WITH CARE. MONITOR SHOWS NSR, RATE 90s. BP STABLE. RA SATS STABLE. RESPIRATIONS EVEN AND UNLABORED. ATTENDS IN PLACE FOR INCONTINENCE. PLAN IS TO START 3% NS FOR HYPONATREMIA. SEE ADMIT ASSESSMENT FOR FULL ASSESSMENT.
[2023-02-15 23:19] VITALS: BP 116/80
[2023-02-15 23:20] LABS: Appearance, Urine Hazy (Clear); Color, Urine Yellow (P-Yellow)
[2023-02-15 23:23] LABS: Bacteria Many /hpf; Calcium Oxalate Crystals Rare /hpf; Mucus Light (0-Heavy); Red Blood Cells, Urine 0-2 /hpf (0-2); Squamous Epithelial Cells Rare /hpf (Few); Transitional Epithelial Cells Few /hpf (0-Rare)
[2023-02-15 23:24] LABS: Amorphous Light (0-Heavy)
[2023-02-15 23:30] VITALS: BP 114/67
[2023-02-15 23:45] VITALS: BP 111/78
[2023-02-16] VITALS (15 sets, daily range): BP systolic 97–130; BP diastolic 64–87
--- NOTE | 2023-02-16 03:10 | NUR ---
IV INFILTRATE ANAID IV INFILTRATE NOTED AT THIS TIME. 3% NS INFUSION STOPPED AND MD NOTIFIED. COLD COMPRESS TO SITE AT THIS TIME. WILL CONTINUE TO MONITOR.
[2023-02-16 06:02] LABS: BASOPHILS ABSOLUTE AUTO 0.01 K/mm3 (0.00-0.23); BASOPHILS PERCENT AUTO 0 % (0-2); EOSINOPHILS ABSOLUTE AUTO 0.32 K/mm3 (0.00-0.68); EOSINOPHILS PERCENT AUTO 3 % (0-6); Hematocrit 27.2 % (33.0-51.0); Hemoglobin 9.7 g/dL (11.5-16.0); IMMATURE GRAN PERCENT AUTO 1 % (0-1); LYMPHOCYTES ABSOLUTE AUTO 1.04 K/mm3 (0.84-5.20); LYMPHOCYTES PERCENT AUTO 10 % (21-46); MONOCYTES ABSOLUTE AUTO 0.91 K/mm3 (0.16-1.47); MONOCYTES PERCENT AUTO 9 % (4-13); Mean Corpuscular HGB 30.9 pg (26.0-34.0); Mean Corpuscular HGB Conc 35.7 g/dL (31.5-36.5); Mean Corpuscular Volume 87 fL (80-100); Mean Platelet Volume 11.5 fL (9.1-12.4); NEUTROPHILS ABSOLUTE AUTO 8.08 K/mm3 (1.96-9.15); NEUTROPHILS PERCENT AUTO 77 % (41-73); Platelet Count 56 K/mm3 (150-400); RDW Coefficient Variation 18.3 % (11.7-14.2); RDW Standard Deviation 57.8 fL (35.1-46.3); Red Blood Cell Count 3.14 M/mm3 (3.80-5.20); White Blood Cell Count 10.46 K/mm3 (4.00-11.30)
--- NOTE | 2023-02-16 06:09 | NUR ---
SHIFT SUMMARY NO ACUTE CHANGES DURING SHIFT. RESTING QUIETLY WHEN UNDISTURBED. ROUSES EASILY TO STIMULI. ASSISTS WITH REPOSITIONING. INCONTINENT OF URINE- ATTENDS IN PLACE. VSS. RA SATS STABLE. RESPIRATIONS EVEN AND UNLABORED. NS INFUSING AT 75MLS/HR PER ORDER. AM LABS CURRENTLY PENDING. MEDICATED WITH ULTRAM 50MG PO X 1 DOSE. ANAID WITH SWELLING NOTED FROM IV INFILTRATE- ICE APPLIED INTERMITTENTLY. WILL REPORT TO ONCOMING RN WHEN AVAILABLE.
[2023-02-16 06:16] LABS: Albumin/Globulin Ratio 0.5 (0.8-1.8); Bilirubin, Total 2.7 mg/dL (0.1-1.0); Bun/Creatinine Ratio 47.7 (12.0-20.0); Calcium, Blood 7.9 mg/dL (8.5-10.1); Creatinine, Blood 0.42 mg/dL (0.40-1.00); Globulin, Blood 3.9 g/dL (2.2-4.0); Potassium, Blood 3.2 mmol/L (3.5-5.5); Total Protein, Blood 5.9 g/dL (6.4-8.2)
[2023-02-16 06:20] LABS: Magnesium, Blood 1.1 mg/dL (1.6-2.4)
--- NOTE | 2023-02-16 07:47 | NUR ---
ASSUMED CARE OF PATIENT. RECEIVED REPORT FROM DENTAL FLOSS PACKER NURSE. PATIENT IS RESTING COMFORTABLY, BUT AWAKENS WHEN WE ENTER HER ROOM. SHE IS PLEASANT, ALERT, AND ORIENTED BUT IS MUMBLING. BP STABLE AT 108/71, HR IS 95 IN SINUS RHYTHM. PATIENT HAS NASAL CANNULA PLACED BUT IS CURRENTLY ON ROOM AIR. DENTAL FLOSS PACKER NURSE REPORTS PATIENT PREVIOUSLY STATED THAT HAVING THE NC IN PLACE DESPITE HAVING OXYGEN FLOWING OR NOT MAKES HER FEEL MORE SAFE. VARIOUS BRUISING THROUGHOUT HER BODY WHICH IS REPORTED TO BE FROM "BUMPING INTO THINGS". PATIENT IS ANXIOUS FOR HER TO VISIT SO HE CAN BRING HER PHONE AND MORE BOOKS.
--- NOTE | 2023-02-16 10:16 | NUR ---
"Spiritual Care | Pt. Request Pt. is sitting up in a recliner and welcomes my visit. Pt. is pleasant but is unsettled by the emotional and physical demands for others in her family. Listen with empathy and a calming presence. Pt. responds with appropriate emotion when speaking about her complicated family support system. Rapport is established and Pt. displays evidence of trust and engagement. ICU associate director of nursing is present as we pray together. Pt. verbalized gratitude for the spiritual care visit and welcomed this sap security architect to return."
[2023-02-16 13:24] LABS: Magnesium, Blood 2.3 mg/dL (1.6-2.4)
--- NOTE | 2023-02-16 13:29 | NUR ---
ORAL POTASSIUM REPLACEMENT WAS ADMINISTERED AND NEW ORDERS OR FOR IV POTASSIUM WERE RECEIVED AFTERWARDS. DELAY IN IV POTASSIUM ADMINISTRATION UNTIL VERIFIED ORDERS FROM
--- NOTE | 2023-02-16 17:57 | NUR ---
SHIFT SUMMARY NEURO: PATIENT REMAINED ALERT AND ORIENTED THROUGHOUT THE ENTIRETY OF THIS SHIFT. SHE BECAME TEARFUL AT TIMES IN REGARD TO NEEDING TO BE OUT OF THE HOSPITAL TO TAKE CARE OF HER AFTER HIS UPCOMING BACK SURGERY. SHE DENIED ANY PAIN DURING THIS SHIFT. CARDIAC: PT REMAINED IN SR 90'S-100. BP REMAINED STABLE. SEE VITAL SIGN FLOW SHEET. RESPIRATORY: PT REMAINED ON ROOM AIR THROUGH THE ENTIRETY OF THIS SHIFT WITH O2 SATS IN HIGH 90'S. SHE STATES THAT SHE LIKES TO HAVE THE CANNULA PLACED IT MAKES HER FEEL MORE COMFORTABLE. 1000mL FLUID RESTRICTION. GI: PATIENT HAD ONE INCONTINENT VOID, AND WAS ABLE TO AMBULATE TO BEDSIDE COMMODE WITH ASSISTANCE FOR 2 ADDITIONAL VOIDS. ATTENDS IN PLACE. : PATIENT ABLE TO AMBULATE TO BEDSIDE COMMODE FOR TWO BM's - BOTH MEDIUM, LOOSE, DARK BROWN. ATTENDS IN PLACE. TOLERATED REGULAR DIET WELL. DENIED ANY NAUSEA/VOMITING. LINES: POWER GLIDE TO TARIQ, DRAWS AND FLUSHES WELL. 75mL NORMAL SALINE RUNNING. SKIN: SCATTERED BRUISING T/O. MEPILEX APPLIED TO R BUTTOCK.
--- NOTE | 2023-02-16 19:14 | NUR ---
REVIEWED CHILDCARE ADMINISTRATOR DOCUMENTATION, AGREE WITH ALL ASSESSMENT AND V/S DATA.
[2023-02-17 05:38] VITALS: BP 115/75
--- NOTE | 2023-02-17 05:43 | NUR ---
SHIFT SUMMARY PATIENT IS ALERT AND ORIENTED X4, MUMBLES. 02 SATS >95% ON RA, DENIES SOB. HR 80s. BP REMAINS STABLE. INCONTINENT AT TIMES, UP TO BSC 2 PERSON ASSIST. NO ACUTE CHANGES. CALL LIGHT IN REACH
[2023-02-17 06:32] LABS: Bun/Creatinine Ratio 35.6 (12.0-20.0); Creatinine, Blood 0.45 mg/dL (0.40-1.00); Magnesium, Blood 1.7 mg/dL (1.6-2.4); Potassium, Blood 4.4 mmol/L (3.5-5.5)
[2023-02-17 06:38] VITALS: BP 123/75
[2023-02-17 16:17] VITALS: BP 123/77
--- NOTE | 2023-02-17 18:26 | NUR ---
SHIFT SUMMARY: PATIENT A&OX4 AND HAS FLAT AFFECT. PLEASANT AND COOPERATIVE c CARE. USE CALL LIGHT FREQUENTLY. PATIENT ON FR OF 1000 MLS, CONSUME ABOUT 345 MLS THIS SHIFT. NA CONTINUES TO BE TRENDING DOWN FROM 123 AT 0500 LAB TO 120 AT 1500 LAB DRAWN RESULT. PATIENT WORK c PT MOBILITY TODAY. PT RECOMMENDED TO RESUME THERAPY AT [facility] 1-2 HRS/DAY. AT AROUND 1700 PATIENT REPORTS SOB AND REQUESTING BREATHING TX. RT WAS NOTIFIED AND BREATHING TX WAS ADMINISTERED BY RT. PATIENT O2 DROPPED TO 88% ON RA. PATIENT WAS PLACED ON 1L OF O2 VIA NC. O2 WAS RECHECKED ABOUT 30 MINS LATER, c SPO2 OF 96%. PATIENT PLACED BACK ON RA AND HAS BEEN SATING 95-96%. PATIENT REPORTS PAIN TO R ARM, MEDICATED X1 c ULTRAM c GOOD RELIEF. VITAL SIGNS REVIEWED. SCD'S TO BLE'S IN PLACED. BED ALRM ON FOR SAFETY. CALL LIGHT IN REACH.
[2023-02-17 20:46] VITALS: BP 110/69
[2023-02-18 03:23] VITALS: BP 113/71
[2023-02-18 05:46] LABS: Bun/Creatinine Ratio 27.6 (12.0-20.0); Creatinine, Blood 0.44 mg/dL (0.40-1.00); Potassium, Blood 4.8 mmol/L (3.5-5.5)
--- NOTE | 2023-02-18 06:03 | NUR ---
ACOUSTICAL LOGGING ENGINEER SUMMARY PT IS A/OX3; PT IS CONFUSED AND FORGETFUL. MAKES NONSENSICAL STATEMENTS, FIXATES, AND ANXIOUS AT TIMES. PT COOPERATIVE WITH CARE. PT C/O SOB OFTEN BUT SATURATIONS AND VITALS ARE STABLE. PT EDUCATION ON USE OF 02. NO ACUTE CHANGES.
[2023-02-18 07:30] VITALS: BP 132/81
[2023-02-18 14:35] VITALS: BP 127/86
--- NOTE | 2023-02-18 18:14 | NUR ---
SHIFT SUMMARY: PATIENT A&OX4. ANSWER TO QUESTIONS APPROPRIATELY. PATIENT REPORTS NOT HAVING A GOOD NIGHT SLEEP LAST NIGHT. PER PATIENT SHE FEELS ANXIOUS AND COUGHING A LOT T/O THE NIGHT. PATIENT HAS BEEN SLEEPING ON AND OFF T/O THIS SHIFT. NA HAS SLIGHTLY IMPROVED TODAY. DENIES CP/PRESSURE, SOB, GENERALIZED [place]O AND N/V. RECEIVED BEDBATH AND LINEN CHANGED TODAY. INCONTINENCE OF URINE, ATTENDS CHANGED T/O SHIFT. PATIENT STILL ON FR OF 1000 MLS, CONSUME ABOUT 490 THIS SHIFT. RECEIVED SCHEDULED MEDS PER EMAR. VITAL SIGNS REVIEWED. BED ALARM ON FOR SAFETY. CALL LIGHT IN REACH.
[2023-02-18 19:34] VITALS: BP 123/82
[2023-02-19 03:17] VITALS: BP 122/77
--- NOTE | 2023-02-19 04:57 | NUR ---
P 3 ARMAMENT/ORDNANCE IMA TECHNICIAN SUMMARY NO ACUTE CHANGE. PT A/OX4 WITH EPISODES OF CONFUISON AND FORGETFULNESS. PT RESTLESS T/O THE NIGHT WITH BRIEF PERIODS OF SLEEP. PT EXPRESSING SHE FEELS ANIXOUS. PT C/O COUGH. OBSERVED VERY OCCASIONAL DRY COUGH. NONSENSICAL STATEMENTS AT TIMES; CONSUION ABOUT RECENT EVENTS AND CURRENT CARE. TARIQ POWERGLIDE PATENT AND DRAWING BLOOD. PT WILL USE CALL TO MAKE NEEDS KNOWN.
[2023-02-19 05:37] LABS: Bun/Creatinine Ratio 26.4 (12.0-20.0); Calcium, Blood 8.1 mg/dL (8.5-10.1); Creatinine, Blood 0.42 mg/dL (0.40-1.00); Potassium, Blood 4.2 mmol/L (3.5-5.5)
[2023-02-19 07:34] VITALS: BP 104/67
[2023-02-19 08:51] VITALS: BP 117/83
--- NOTE | 2023-02-19 09:00 | NUR ---
pt laying in bed with eyes closed, wakes easily, repositioned her so she can eat breakfast, a/ox3, with some occ confusion, some anxiety, cooperative with care, follows commands well, denies pain at this time, but reports cramps in her foot, lungs are clear in upper sher, dim in bases, resp even and unlabored, no cough noted, hrr, no edema noted, ppp +1, cap refill <3sec, vs stable, afebrile, iv isite is powerglide to lindsey, site is clear and patent, s.l. at this time, btx4, abd round soft nontender, with umbilical hernia, incont of bowel/bladder, briefs in place, manarinder, weak, two person assist to mobilize, mónica, call light in reach.
--- NOTE | 2023-02-19 19:36 | NUR ---
pt watching tv, doing ok, no acute changes this shift. call light in reach.
[2023-02-19 19:37] VITALS: BP 129/63
[2023-02-20 02:46] VITALS: BP 116/83
--- NOTE | 2023-02-20 06:39 | NUR ---
Shift Summary Pt c/o severe restless legs during the night. Called hospitalist who ordered 300 mg Gabapentin PRN at bedtime, pt slept well through most of the night after recieving medication. She is a 2 assist pivot to BSC, continent bowels and voids. AOx3-4, anxious, pleasant and cooperative. VSS.
[2023-02-20 06:43] LABS: Bun/Creatinine Ratio 24.7 (12.0-20.0); Creatinine, Blood 0.45 mg/dL (0.40-1.00); Potassium, Blood 4.1 mmol/L (3.5-5.5)
[2023-02-20 08:16] VITALS: BP 115/80
--- NOTE | 2023-02-20 14:37 | NUR ---
ASSUMPTION OF CARE: BEDSIDE REPORT GIVEN BY LIV WHEELER. PT A/O X 4 SITTING IN CHAIR IN ROOM. PT HAS TWO VISITORS CURRENTLY TO DISCUSS INSURANCE BENEFITS. PT DENIES NEEDS AT THIS TIME.
[2023-02-20 15:52] VITALS: BP 114/63
--- NOTE | 2023-02-20 18:29 | NUR ---
SHIFT SUMMARY: PT A/O X4 2 PERSON ASSIST WITH GB FOR TX. PT ABLE TO PIVOT TX TO BED. PT EATING WELL. PT ON FLUID RESTRICTION. SODIUM UP TO 126 TODAY. PT EATING DINNER AT THIS TIME WITH NO COMPLAINTS.
[2023-02-20 19:24] VITALS: BP 116/77
--- NOTE | 2023-02-21 04:09 | NUR ---
SHIFT SUMMARY ADMITTED FOR HYPONATREMIA. FULL CODE. PLAN IS FOR DC TO [facility], WHERE SHE IS FROM. POWERGLIDE IN LUE. 1000 ML FLUID RESTRICTION. 2 HEAVY MAX ASSIST/PIVOT TO BSC. ON RA. A&O X4, PILLS GIVEN WHOLE WITH PUDDING. HX OF CIRRHOSIS, FREQUENT FALLS, PARACENTESIS PROCEDURES FOR ASCITIES.
[2023-02-21 05:49] LABS: BASOPHILS ABSOLUTE AUTO 0.02 K/mm3 (0.00-0.23); BASOPHILS PERCENT AUTO 0 % (0-2); EOSINOPHILS ABSOLUTE AUTO 0.38 K/mm3 (0.00-0.68); EOSINOPHILS PERCENT AUTO 5 % (0-6); Hematocrit 25.2 % (33.0-51.0); Hemoglobin 8.3 g/dL (11.5-16.0); IMMATURE GRAN ABSOLUTE AUTO 0.07 K/mm3 (0.00-0.10); IMMATURE GRAN PERCENT AUTO 1 % (0-1); LYMPHOCYTES ABSOLUTE AUTO 1.11 K/mm3 (0.84-5.20); LYMPHOCYTES PERCENT AUTO 13 % (21-46); MONOCYTES ABSOLUTE AUTO 0.78 K/mm3 (0.16-1.47); MONOCYTES PERCENT AUTO 9 % (4-13); Mean Corpuscular HGB 30.2 pg (26.0-34.0); Mean Corpuscular HGB Conc 32.9 g/dL (31.5-36.5); Mean Corpuscular Volume 92 fL (80-100); NEUTROPHILS ABSOLUTE AUTO 6.15 K/mm3 (1.96-9.15); NEUTROPHILS PERCENT AUTO 72 % (41-73); RDW Coefficient Variation 19.1 % (11.7-14.2); RDW Standard Deviation 64.1 fL (35.1-46.3); Red Blood Cell Count 2.75 M/mm3 (3.80-5.20); White Blood Cell Count 8.51 K/mm3 (4.00-11.30)
[2023-02-21 05:54] LABS: Platelet Count 32 K/mm3 (150-400)
[2023-02-21 06:14] LABS: Bun/Creatinine Ratio 25.5 (12.0-20.0); Calcium, Blood 7.9 mg/dL (8.5-10.1); Creatinine, Blood 0.43 mg/dL (0.40-1.00); Potassium, Blood 3.5 mmol/L (3.5-5.5)
[2023-02-21 07:23] VITALS: BP 109/80
--- NOTE | 2023-02-21 10:52 | NUR ---
Pt. is awake in bed and welcomes my visit. Pt. is pleasant but unsettled by charlene keithtin reports about her spouses spinal surgery currently at another hospital. Pt. displays moments of emotion. Listen with empathy and give pastoral care with a caring presence. Pt. displays evidence of being heard and comforted. Facilitate a little bit of further life review. Pt. is reading a book that was given her by Spiritual Care. Prayed with Pt. Pt. verbalized gratitude for the spiritual care visit.
[2023-02-21 14:57] VITALS: BP 126/81
--- NOTE | 2023-02-21 16:43 | NUR ---
PT IS A/OX3, PLEASANT AND COOPERATIVE. THE PT HAS BEEN BEDREST TODAY. PT WAS REPOSITIONED T/O THE LEONA. THE PT WAS MEDICATED FOR PAIN X2 TODAY. PT APPEARS TO BE BREATHING EASILY AT REST. PT HAD DIFFICULTY TAKEING HER LARGER ORAL MEDICATIONS. PT DENIED ANY N/V. PT HAS BEEN COOPERATIVE WITH THE ORDERED FLUID RESTRICTIONS
[2023-02-21 19:07] VITALS: BP 107/79
--- NOTE | 2023-02-22 03:57 | NUR ---
SHIFT SUMMARY PT AOX3, CALLS WELL AND MAKES HER NEEDS KNOWN. HAS NOT GOTTEN OUT OF BED THIS SHIFT. SHE HAS HAD NO COMPLAINTS, ONLY REQUESTING A SNACK EARLY THIS MORNING. BED IN THE LOWEST POSITION AND CALL LIGHT WITHIN REACH. WILL REPORT TO ONCOMING NURSE.
[2023-02-22 05:00] LABS: BASOPHILS ABSOLUTE AUTO 0.02 K/mm3 (0.00-0.23); BASOPHILS PERCENT AUTO 0 % (0-2); EOSINOPHILS ABSOLUTE AUTO 0.32 K/mm3 (0.00-0.68); EOSINOPHILS PERCENT AUTO 4 % (0-6); Hematocrit 27.4 % (33.0-51.0); IMMATURE GRAN ABSOLUTE AUTO 0.06 K/mm3 (0.00-0.10); IMMATURE GRAN PERCENT AUTO 1 % (0-1); LYMPHOCYTES ABSOLUTE AUTO 0.91 K/mm3 (0.84-5.20); LYMPHOCYTES PERCENT AUTO 11 % (21-46); MONOCYTES ABSOLUTE AUTO 0.81 K/mm3 (0.16-1.47); MONOCYTES PERCENT AUTO 10 % (4-13); Mean Corpuscular HGB 30.2 pg (26.0-34.0); Mean Corpuscular HGB Conc 32.8 g/dL (31.5-36.5); Mean Corpuscular Volume 92 fL (80-100); Mean Platelet Volume 10.9 fL (9.1-12.4); NEUTROPHILS ABSOLUTE AUTO 6.26 K/mm3 (1.96-9.15); NEUTROPHILS PERCENT AUTO 75 % (41-73); RDW Coefficient Variation 19.1 % (11.7-14.2); RDW Standard Deviation 63.9 fL (35.1-46.3); Red Blood Cell Count 2.98 M/mm3 (3.80-5.20); White Blood Cell Count 8.38 K/mm3 (4.00-11.30)
[2023-02-22 05:09] LABS: Platelet Count 36 K/mm3 (150-400)
[2023-02-22 05:21] LABS: Bun/Creatinine Ratio 19.4 (12.0-20.0); Calcium, Blood 7.5 mg/dL (8.5-10.1); Creatinine, Blood 0.57 mg/dL (0.40-1.00)
--- NOTE | 2023-02-22 05:27 | NUR ---
CRITICAL LAB VALUE LAB NOTIFIED NURSE PLATELET COUNT OF 36, UP 4 POINTS FROM YESTERDAY'S LABS. PROVIDER, DR. LUCAS, NOTIFIED.
[2023-02-22 07:12] VITALS: BP 116/73
[2023-02-22 12:16] LABS: Influenza A, PCR NEGATIVE (NEGATIVE); Influenza B, PCR NEGATIVE (NEGATIVE); Resp Syncytial Virus, PCR NEGATIVE (NEGATIVE); SARS-Cov-2 (COVID-19) PCR, MMC NEGATIVE (NEGATIVE)
[2023-02-22] MEDS ORDERED: FURO20 PO (12:41)
[2023-02-22] MEDS ORDERED: GABA300T24 PO (12:44)
[2023-02-22] MEDS ORDERED: VISBIOME 112.51 EACH PO (12:45)
[2023-02-22] MEDS ORDERED: LEVFLO500 PO (12:45)
[2023-02-22] MEDS ORDERED: SODCHL1 PO (12:45)
--- NOTE | 2023-02-22 16:25 | NUR ---
DISCHARGE PT DISCHARGED TO FACILITY. PT IS ALERT AND ORIENTED X4 AND IN GOOD SPIRITS. 2 PERSON ASSIST WITH WALKER. UP TO BEDSIDE COMMODE TODAY. TREATED PAIN PER EMAR.
[2023-02-26] MEDS ORDERED: Acetaminophen650 M1 PO (14:49)
[2023-02-26] MEDS ORDERED: FURO80 (14:50)
[2023-02-26] MEDS ORDERED: RIFA550T2 PO (14:53)
== END 2023-02-22 14:14 | DRG 641 ==
LOC: ER 17:14 → ICUW 21:26 → MEDS 21:26 → ICUW 22:56 → MEDS 02-17 06:26 → ENPENDDIS 02-22 09:53 → MEDS 02-22 14:14
PROVIDERS: Emergency Medicine; Internal Medicine; Nurse Practitioner Acute Care; ADMIT Internal Medicine
DX: E87.1 Hypo-osmolality and hyponatremia (principal); Z20.822 Contact with and (suspected) exposure to COVID-19; E87.6 Hypokalemia; K70.31 Alcoholic cirrhosis of liver with ascites; E83.42 Hypomagnesemia; Z98.890 Other specified postprocedural states; Z79.899 Other long term (current) drug therapy
CPT/HCPCS: 0241U; 36415; 71045; 80048; 80053; 81001; 83735; 83880; 83930; 83935; 84295; 84300; 84443; 85025; 87077; 87086; 87186; 94640; 94760; 97110; 97162; 97165; 97530; 97535; 99285-25; A9270; C1751; J0696; J2405; J3475; J3480; J7030

== ENCOUNTER → 2023-03-26 | Day surgery (SDC) | payer OTHER ==
[~2023-03-26] MED LIST changes: +Acetaminophen650 M1 PO; +FURO20 PO; +FURO80; +GABA300T24 PO; +LEVFLO500 PO; +RIFA550T2 PO; +SODCHL1 PO; +VISBIOME 112.51 EACH PO
== END ==
LOC: US 14:23
DX: K70.31 Alcoholic cirrhosis of liver with ascites (principal)
CPT/HCPCS: 49083

== ENCOUNTER 2023-04-23 09:37 | Day surgery (SDC) | payer OTHER | END 2023-04-23 22:56 | disposition home or self-care (01) | LOC: US 09:37 | DX: K70.31 Alcoholic cirrhosis of liver with ascites (principal) | CPT/HCPCS: 49083 ==

== ENCOUNTER → 2023-04-23 | Outpatient (CLI) | payer OTHER ==
[2023-04-23 11:59] LABS: BASOPHILS ABSOLUTE AUTO 0.04 K/mm3 (0.00-0.23); BASOPHILS PERCENT AUTO 1 % (0-2); EOSINOPHILS ABSOLUTE AUTO 0.14 K/mm3 (0.00-0.68); EOSINOPHILS PERCENT AUTO 3 % (0-6); Hematocrit 27.6 % (33.0-51.0); Hemoglobin 9.1 g/dL (11.5-16.0); IMMATURE GRAN ABSOLUTE AUTO 0.03 K/mm3 (0.00-0.10); IMMATURE GRAN PERCENT AUTO 1 % (0-1); LYMPHOCYTES ABSOLUTE AUTO 0.69 K/mm3 (0.84-5.20); LYMPHOCYTES PERCENT AUTO 13 % (21-46); MONOCYTES ABSOLUTE AUTO 0.54 K/mm3 (0.16-1.47); MONOCYTES PERCENT AUTO 10 % (4-13); Mean Corpuscular HGB 30.2 pg (26.0-34.0); Mean Corpuscular Volume 92 fL (80-100); Mean Platelet Volume 9.4 fL (9.1-12.4); NEUTROPHILS PERCENT AUTO 74 % (41-73); Platelet Count 124 K/mm3 (150-400); RDW Coefficient Variation 18.5 % (11.7-14.2); RDW Standard Deviation 61.9 fL (35.1-46.3); Red Blood Cell Count 3.01 M/mm3 (3.80-5.20); White Blood Cell Count 5.44 K/mm3 (4.00-11.30)
[2023-04-23 12:31] LABS: Alanine Aminotransfer (ALT/SGP 36 U/L (12-78); Albumin, Blood 2.3 g/dL (3.4-5.0); Albumin/Globulin Ratio 0.5 (0.8-1.8); Alk Phos 77 U/L (50-136); Anion Gap 9 mmol/L (6-16); Aspartate Aminotrans (AST/SGOT 56 U/L (12-37); Bilirubin, Total 1.9 mg/dL (0.1-1.0); Blood Urea Nitrogen 6 mg/dL (8-24); Bun/Creatinine Ratio 10.4 (12.0-20.0); CHOL/HDL RATIO 3.6; CO2, Blood 25 mmol/L (21-32); Calcium, Blood 8.5 mg/dL (8.5-10.1); Chloride, Blood 104 mmol/L (98-108); Cholesterol 208 mg/dL (50-200); Creatinine, Blood 0.58 mg/dL (0.40-1.00); Globulin, Blood 4.3 g/dL (2.2-4.0); Glomerular Filtration Rate 106 (60-); Glucose, Blood 95 mg/dL (70-99); HDL Cholesterol 58 mg/dL (>39); LDL/HDL RATIO 2.3; Low Density Lipoprotein Chol 136 mg/dL (0-110); Potassium, Blood 3.7 mmol/L (3.5-5.5); Sodium, Blood 138 mmol/L (136-145); Total Protein, Blood 6.6 g/dL (6.4-8.2); Triglycerides 72 mg/dL (30-160); Very Low Density Lipoprot Chol 14 mg/dL (6-32)
[2023-04-25 05:12] LABS: HEMOGLOBIN A1C 4.4 % (4.8-5.6)
== END | disposition home or self-care (01) ==
LOC: LAB SHORT 11:11 → LAB 11:11
PROVIDERS: Physician Assistant
DX: Z13.6 Encounter for screening for cardiovascular disorders (principal); R20.0 Anesthesia of skin; Z83.3 Family history of diabetes mellitus
CPT/HCPCS: 80053; 80061; 82607; 82746; 83036; 85025

== ENCOUNTER 2023-05-14 09:30 | Day surgery (SDC) | payer OTHER ==
[2023-05-14 10:10] LABS: International Normalized Ratio 1.47; Prothrombin Time Results 15.1 Sec (9.7-11.5)
== END 2023-05-14 22:55 | disposition home or self-care (01) ==
LOC: US 09:30
PROVIDERS: Physician Assistant
DX: K70.31 Alcoholic cirrhosis of liver with ascites (principal)
CPT/HCPCS: 76705; 85610; 85730

== ENCOUNTER → 2023-06-01 | Outpatient (CLI) | payer OTHER ==
[2023-06-06 09:13] LABS: HPV 16 Negative (Negative); HPV 18 Negative (Negative); HPV OTHER HR TYPES Negative (Negative)
== END ==
LOC: LAB 14:22 → LAB SHORT 14:22
PROVIDERS: Physician Assistant
DX: Z12.4 Encounter for screening for malignant neoplasm of cervix (principal)
CPT/HCPCS: 87624; G0145

== ENCOUNTER 2023-06-04 09:37 | Day surgery (SDC) | payer OTHER | END 2023-06-04 22:46 | disposition home or self-care (01) | LOC: US 09:37 | DX: K70.31 Alcoholic cirrhosis of liver with ascites (principal) | CPT/HCPCS: 76705 ==